=== PATIENT | male | born 1930 | race Hispanic/Latino ===

== ENCOUNTER 2017-03-17 05:41 | Inpatient (IN) | payer MEDICARE ==
[2017-03-17 05:44] VITALS: BMI 24.9
--- NOTE | 2017-03-17 05:58 | ED PDOC ---
Arrival/HPI - General Chief Complaint: Trauma Time Seen by Provider: 03/17/17 05:54 Historian: Family - History of Present Illness Narrative History of Present Illness (Text): 03/17/17 05:55 An 86 year old male with prior brain aneurysm repairs, Lewy body dementia, Alzheimer's, and Parkinson's who lives with his son, presents to the emergency department s/p a fall. The patient was trying to make his way to the bathroom without his walker and fell. The patient, accompanied by his son, is currently complaining of severe pain to the left thigh and lower extremity. The patient denies head injury or LOC, fevers, chills, headache, dizziness, chest pain, shortness of breath, dyspnea on exertion, cough, abdominal pain, nausea, vomiting, diarrhea, back pain, neck pain, urinary/bowel changes, or any other complaint. Time/Duration: Prior to Arrival Symptom Onset: Sudden Symptom Course: Unchanged Activities at Onset: Rest, Light Context: Home Past Medical History - Provider Review Nursing Documentation Reviewed: Yes - Infectious Disease Hx of Infectious Diseases: None - Tetanus Immunization Tetanus Immunization: Unknown - Cardiac Hx Cardiac Disorders: Yes Hx Hypertension: Yes - Pulmonary Hx Respiratory Disorders: No - Neurological Hx Alzheimer's Disease: Yes (Lwey Body Disease) Hx Dementia: Yes Hx Parkinson's Disease: Yes - Hematological/Oncological Hx Blood Transfusions: No Hx Blood Transfusion Reaction: No - Musculoskeletal/Rheumatological Hx Arthritis: Yes - Gastrointestinal Hx Gastroesophageal Reflux: Yes - Genitourinary/Gynecological Hx Prostate Problems: Yes (BPH, 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) - Psychiatric Hx Depression: No Hx Emotional Abuse: No Hx Physical Abuse: No Hx Substance Use: No - Surgical History Hx Cardiac Catheterization: Yes (01/23 stent placement) Hx Cholecystectomy: Yes Hx Coronary Stent: Yes - Anesthesia Hx Anesthesia Reactions: No Hx Malignant Hyperthermia: No - Suicidal Assessment Feels Threatened In Home Enviroment: No Family/Social History - Physician Review Nursing Documentation Reviewed: Yes Family/Social History: No Known Family HX Smoking Status: Never Smoked Hx Alcohol Use: No Hx Substance Use: No Hx Substance Use Treatment: No Allergies/Home Meds Allergies/Adverse Reactions: Allergies lorazepam Adverse Reaction (Verified 03/17/17 05:45) FATIGUE As per family patient gets "agitated & nasty" Home Medications: Home Meds Medication Instructions Recorded Confirmed Atorvastatin Calcium [Lipitor] 10 mg PO DAILY 05/21/12 03/17/17 Quetiapine Fumarate [Seroquel] 75 mg PO DAILY 05/21/12 03/17/17 Aspirin [Ecotrin] 325 mg PO DAILY 05/14/13 03/17/17 Amiodarone HCl 200 mg PO DAILY 03/17/17 03/17/17 Furosemide [Lasix] 10 mg PO DAILY 03/17/17 03/17/17 Lisinopril [Zestril] 2.5 mg PO DAILY 03/17/17 03/17/17 Metoprolol Tartrate [Lopressor] 25 mg PO DAILY 03/17/17 03/17/17 Review of Systems - Physician Review All systems were reviewed & negative as marked: Yes - Review of Systems Constitutional: absent: Fevers Respiratory: absent: SOB, Cough Cardiovascular: absent: Chest Pain, RAE Gastrointestinal: absent: Abdominal Pain, Diarrhea, Nausea, Vomiting Musculoskeletal: Other (Left thigh and lower extremity pain). absent: Back Pain , Neck Pain Neurological: absent: Headache, Dizziness Physical Exam Vital Signs Reviewed: Yes Vital Signs Temp Pulse Resp BP Pulse Ox 03/17/17 08:47 90 17 146/80 99 03/17/17 06:36 82 18 166/91 H 96 03/17/17 06:17 97.7 F 03/17/17 05:58 75 18 147/104 H 95 03/17/17 05:45 75 18 147/104 H 95 Blood Pressure: Hypertensive Pulse: Regular Respiratory Rate: Normal Appearance: Positive for: Non-Toxic, Unkept Pain Distress: Severe Mental Status: Positive for: other (Alert, but disoriented. Speking 2-3 word sentences expressing that he has pain in his left lower extremity.) - Systems Exam Head: Present: Atraumatic, Normocephalic, Other (Patient has prior craniotomy scars.) Pupils: Present: PERRL Extroacular Muscles: Present: EOMI Conjunctiva: Present: Normal Ears: Present: Normal, NORMAL TM, Erythema, Normal Canal, TM Bulging, Fluid, TM Perf, Other Mouth: Present: Moist Mucous Membranes Neck: Present: Normal Range of Motion Respiratory/Chest: Present: Clear to Auscultation, Good Air Exchange. No: Respiratory Distress, Accessory Muscle Use Cardiovascular: Present: Regular Rate and Rhythm, Normal S1, S2. No: Murmurs Abdomen: Present: Normal Bowel Sounds. No: Tenderness, Distention, Peritoneal Signs Back: Present: Normal Inspection Upper Extremity: Present: Normal Inspection. No: Cyanosis, Edema Lower Extremity: Present: Tenderness (Patient expressing that he has pain in his left lower extremity just above the knee. ). No: Deformity Neurological: Present: GCS=15, CN II-XII Intact, Other (Patient has intention tremor.) Skin: Present: Warm, Dry, Normal Color. No: Rashes Psychiatric: Present: Alert, Oriented x 3, Normal Insight, Normal Concentration Medical Decision Making ED Course and Treatment: 03/17/17 06:02 Impression: An 86 year old male presents to the emergency department s/p a fall complaining of severe left thigh and lower extremity pain. Plan: -- EKG -- Chest X-ray -- Labs -- Left Femur X-Ray -- Reassess and disposition Prior Visits: Notes and results from previous visits were reviewed. Patient was last seen in the emergency department on 06/30/15. The patient was seen in the emergency department for AMS. The patient was hospitalized. Progress Notes: EKG: Ordered, reviewed, and independently interpreted the EKG. Rate : 84 BPM Rhythm : NSR Interpretation : Non specific ST-T wave changes. Old anteroseptal HI, No acute ishcemic changes. Comparison : No previous EKG for comparison. - Lab Interpretations Lab Results: 03/17/17 06:00 03/17/17 06:00 Lab Results 03/17/17 06:00: Sodium 144, Potassium 4.2, Chloride 109 H, Carbon Dioxide 25, Anion Gap 15, BUN 33 H, Creatinine 1.2, Est GFR ( Amer) > 60, Est GFR ( Non-Af Amer) 57, Random Glucose 110, Calcium 9.9, Phosphorus 2.3 L, Magnesium 1.9, Total Bilirubin 0.9, AST 45, ALT 56, Alkaline Phosphatase 113, Total Protein 7.8, Albumin 4.1, Globulin 3.7, Albumin/Globulin Ratio 1.1 03/17/17 06:00: WBC 11.5 H D, RBC 5.10, Hgb 15.0, Hct 43.1, MCV 84.5, MCH 29.4, MCHC 34.8, RDW 14.7 H, Plt Count 209, MPV 10.1, Gran % 72.3 H, Lymph % (Auto) 17.8 L, [place] % (Auto) 8.6 H, Eos % (Auto) 1.1 L, Baso % (Auto) 0.2, Gran # 8.30 H, Lymph # 2.1, [place] # 1.0 H, Eos # 0.1, Baso # 0.02 I have reviewed the lab results: Yes - RAD Interpretation Radiology Orders: 03/17/17 05:58 CHEST PORTABLE [RAD] Stat 03/17/17 05:59 Femur Left [FEMUR MIN 2 VIEWS LT] [RAD] Stat - EKG Interpretation Interpreted by ED Physician: Yes Type: 12 lead EKG - Medication Orders Current Medication Orders: Amiodarone HCl (Cordarone) 200 mg PO DAILY NIK Aspirin (Ecotrin) 325 mg PO DAILY NIK Atorvastatin Calcium (Lipitor) 10 mg PO DAILY [facility] Last Admin: 03/17/17 11:44 Dose: 10 mg Enoxaparin Sodium (Lovenox) 40 mg SC DAILY [facility] PRN Reason: Protocol Last Admin: 03/17/17 11:44 Dose: 40 mg Subcutaneous Administrations Document 03/17/17 11:44 SES (Rec: 03/17/17 11:44 [facility] [id number] Charges for Administration # of Subcutaneous Administrations 1 Hydromorphone HCl (Dilaudid) 0.5 mg SC Q6H PRN PRN Reason: Pain, moderate (4-7) Last Admin: 03/17/17 15:10 Dose: 0.5 mg MAR Pain Assessment Document 03/17/17 15:10 THIED (Rec: 03/17/17 15:13 [id number]) Pain Reassessment Is this a pain reassessment? No Sleep Is patient sleeping during reassessment? No Presence of Pain Presence of Pain Yes Pain Scale Used Pain Scale Used FLACC Location Left, Right or Bilateral Right Upper or Lower Upper Pain Location Body Site Hip Description Description Constant Pain Behavior Guarding Restlessness Facial Grimacing Thrashing Aggravating Factors Changing Position Alleviating Factors/Management Medication Techniques Alleviating Factors Position Change Subcutaneous Administrations Document 03/17/17 15:10 THIED (Rec: 03/17/17 15:13 THIED [id number]) Injection Site MAR Injection Site Right Deltoid Charges for Administration # of Subcutaneous Administrations 1 Re-Assess: MAR Pain Assessment Document 03/17/17 16:10 SES (Rec: 03/17/17 18:15 [id number] Pain Reassessment Is this a pain reassessment? Yes Sleep Is patient sleeping during reassessment? No Presence of Pain Presence of Pain Yes Pain Scale Used Pain Scale Used Numeric Location Left, Right or Bilateral Left Pain Location Body Site Hip Description Intensity of Pain at present 5 Pain Behavior Guarding Irritability Alleviating Factors/Management Inactivity Techniques Alleviating Factors Inactivity Lisinopril (Zestril) 2.5 mg PO DAILY [facility] Last Admin: 03/17/17 11:43 Dose: 2.[address] [facility] Pulse and Blood Pressure Document 03/17/17 11:43 [facility] (Rec: 03/17/17 11:44 [id number] Pulse Pulse Rate (60-90) 72 Blood Pressure Blood Pressure (100/60-150/90) 148/68 Metoprolol Tartrate (Lopressor) 25 mg PO DAILY [facility] Last Admin: 03/17/17 11:44 Dose: 25 mg Pantoprazole Sodium (Protonix Ec Tab) 40 mg PO DAILY [facility] Last Admin: 03/17/17 13:00 Dose: Not Given Non-Admin Reason: Patient Asleep Potassium Phos/Sodium Phos (Neutra-Phos) 1 pkt PO TID [facility] Last Admin: 03/17/17 18:47 Dose: Not Given Non-Admin Reason: Patient Asleep Quetiapine Fumarate (Seroquel) 25 mg PO HS PRN; Protocol PRN Reason: Agitation Discontinued Medications Pneumococcal Polyvalent Vaccine (Pneumovax 23 Vaccine) 0.5 ml IM .ONCE ONE Stop: 03/17/17 13:14 Last Admin: 03/17/17 18:15 Dose: Immunization Registry Document 03/17/17 18:15 [facility] (Rec: 03/17/17 18:15 [id number] Immunization Registry Consent Date 03/17/17 - Transfer of Care Patient signed out to Dr:: carlos - Mamadou Statement The provider has reviewed the documentation as recorded by the Scribe Magali Rinaldi Provider Scribe Attestation: All medical record entries made by the Scribe were at my direction and personally dictated by me. I have reviewed the chart and agree that the record accurately reflects my personal performance of the history, physical exam, medical decision making, and the department course for this patient. I have also personally directed, reviewed, and agree with the discharge instructions and disposition. Disposition/Present on Arrival - Present on Arrival Any Indicators Present on Arrival: No History of DVT/PE: No History of Uncontrolled Diabetes: No Urinary Catheter: No History of Decub. Ulcer: No History Surgical Site Infection Following: None - Disposition Have Diagnosis and Disposition been Completed?: Yes Diagnosis: Hip fracture Disposition: HOSPITALIZED Disposition Time: 18:58 Patient Plan: Admission Patient Problems: Current Active Problems Problem Status Onset Hip fracture Acute Condition: FAIR
[2017-03-17 06:26] LABS: BASO # 0.02 K/mm3 (0.0-2.0); BASO % 0.2 % (0.0-3.0); EOS # 0.1 (0.0-0.7); EOS % 1.1 % (1.5-5.0); GRAN # 8.3 (1.4-6.5); GRAN % 72.3 % (50.0-68.0); LYMPH # 2.1 (1.2-3.4); LYMPH % 17.8 % (22.0-35.0); MEAN CELL VOLUME 84.5 fl (80.0-105.0); MEAN CORPUSCULAR HEMOGLOBIN 29.4 pg (25.0-35.0); MEAN CORPUSCULAR HGB CONC 34.8 g/dl (31.0-37.0); MEAN PLATELET VOLUME 10.1 fl (7.0-11.0); MONO % 8.6 % (1.0-6.0); RBC 5.1 10^6/uL (3.5-6.1); RED CELL DISTRIBUTION WIDTH 14.7 % (11.5-14.5); WHITE BLOOD COUNT 11.5 10^3/ul (4.5-11.0)
[2017-03-17 06:39] LABS: ALB/GLOB RATIO 1.1 (1.1-1.8); ALBUMIN 4.1 g/dL (3.0-4.8); ALT/SGPT 56 U/L (7-56); AST/SGOT 45 U/L (17-59); BLOOD UREA NITROGEN 33 mg/dL (7-21); CALCIUM 9.9 mg/dL (8.4-10.5); GFR AFRICAN-AMERICAN > 60; GFR NON-AFRICAN AMERICAN 57; MAGNESIUM 1.9 mg/dL (1.7-2.2)
--- NOTE | 2017-03-17 07:24 | ED PDOC ---
Physical Exam Vital Signs Temp Pulse Resp BP Pulse Ox 03/17/17 06:36 82 18 166/91 H 96 03/17/17 06:17 97.7 F 03/17/17 05:58 75 18 147/104 H 95 03/17/17 05:45 75 18 147/104 H 95 Medical Decision Making ED Course and Treatment: 03/17/17 07:24 Case endorsed to me by Dr. Higgins. Pending Chest X-ray, Femur left 2 views x- ray, reassessment, and disposition. 03/17/17 07:45 PROCEDURE: Chest X-ray Dictated By: Jeremy Hurst MD Dictated Date/Time: 03/17/17 IMPRESSION: NAD PROCEDURE: Left Femur Radiographs. Dictator : Jeremy Monzon MD Report Date : 03/17/2017 07:34:12 IMPRESSION: Intertrochanteric fracture of left hip. The remainder the femur is intact 03/17/17 07:[address] Adame who is aware and agrees with the Plan. Dr. Adame is aware of patient's past orthopedist who is Dr. Maloney. Patient will be admitted for left hip fracture. - Lab Interpretations Lab Results: 03/17/17 06:00 03/17/17 06:00 Lab Results 03/17/17 06:00: Sodium 144, Potassium 4.2, Chloride 109 H, Carbon Dioxide 25, Anion Gap 15, BUN 33 H, Creatinine 1.2, Est GFR ( Amer) > 60, Est GFR ( Non-Af Amer) 57, Random Glucose 110, Calcium 9.9, Phosphorus 2.3 L, Magnesium 1.9, Total Bilirubin 0.9, AST 45, ALT 56, Alkaline Phosphatase 113, Total Protein 7.8, Albumin 4.1, Globulin 3.7, Albumin/Globulin Ratio 1.1 03/17/17 06:00: WBC 11.5 H D, RBC 5.10, Hgb 15.0, Hct 43.1, MCV 84.5, MCH 29.4, MCHC 34.8, RDW 14.7 H, Plt Count 209, MPV 10.1, Gran % 72.3 H, Lymph % (Auto) 17.8 L, [place] % (Auto) 8.6 H, Eos % (Auto) 1.1 L, Baso % (Auto) 0.2, Gran # 8.30 H, Lymph # 2.1, [place] # 1.0 H, Eos # 0.1, Baso # 0.02 - RAD Interpretation Radiology Orders: 03/17/17 05:58 CHEST PORTABLE [RAD] Stat 03/17/17 05:59 Femur Left [FEMUR MIN 2 VIEWS LT] [RAD] Stat - Scribe Statement The provider has reviewed the documentation as recorded by the Glennyibjamie Hollins Provider Scribe Attestation: All medical record entries made by the Glennyibjamie were at my direction and personally dictated by me. I have reviewed the chart and agree that the record accurately reflects my personal performance of the history, physical exam, medical decision making, and the department course for this patient. I have also personally directed, reviewed, and agree with the discharge instructions and disposition. Disposition/Present on Arrival - Present on Arrival Any Indicators Present on Arrival: No History of DVT/PE: No History of Uncontrolled Diabetes: No Urinary Catheter: No History of Decub. Ulcer: No History Surgical Site Infection Following: None - Disposition Have Diagnosis and Disposition been Completed?: Yes Diagnosis: Hip fracture Disposition: HOSPITALIZED Disposition Time: 19:40 Condition: FAIR
--- NOTE | 2017-03-17 07:34 | RAD ---
HISTORY: Sepsis Patient COMPARISON: 06/30/2015 FINDINGS: LUNGS: No active pulmonary disease. PLEURA: No significant pleural effusion identified, no pneumothorax apparent. CARDIOVASCULAR: Normal. OSSEOUS STRUCTURES: Sternal wires VISUALIZED UPPER ABDOMEN: Normal. OTHER FINDINGS: None. IMPRESSION: No active disease.
--- NOTE | 2017-03-17 07:35 | RAD ---
PROCEDURE: Left Femur Radiographs. HISTORY: trauma COMPARISON: None. TECHNIQUE: AP and Lateral Radiographs of the left femur. FINDINGS: FEMUR: There is an intertrochanteric fracture of the left hip. The remainder of the femur is intact SOFT TISSUES: Normal. OTHER FINDINGS: None. IMPRESSION: Intertrochanteric fracture of left hip. The remainder the femur is intact
--- NOTE | 2017-03-17 09:17 | CT ---
PROCEDURE: CT of the Left Hip without contrast. HISTORY: f/u to femur x-ray COMPARISON: None available. TECHNIQUE: Contiguous axial images of the right hip were obtained. Coronal and sagittal reformats were generated. No contrast utilized for this exam. Total exam DLP: 362.87 mGy-cm This CT exam was performed using one or more of the following dose reduction techniques: Automated exposure control, adjustment of the mA and/or kV according to patient size, and/or use of iterative reconstruction technique. FINDINGS: BONES: There is a comminuted impacted fracture of the neck and intertrochanteric region of the proximal left femur without dislocation. Fragments of the posterior mid neck are impacted into the proximal mid neck. A fracture of the base the neck is seen through the intertrochanteric space as well which is impacted into the mid neck. A valgus fracture deformity results in terms of angulation of the major distal fracture fragment. No dislocation or subluxation identified. RIGHT HIP JOINT: Advanced degenerative changes seen of the right hip joint including cortical sclerosis, limited osteophyte formation and prominent joint space narrowing. SOFT TISSUES: Limited local soft tissue edema is identified. IMPRESSION: Comminuted impacted fracture involving the mid to distal left femoral neck and intertrochanteric space with impaction multiple sites and valgus angulation of the major distal fracture fragment. Dislocation
--- NOTE | 2017-03-17 09:52 | RAD ---
PROCEDURE: Left Hip and pelvis X-ray Radiographs. HISTORY: f/u to femur x-ray COMPARISON: None. FINDINGS: BONES: There is a comminuted displaced intertrochanteric fracture of the left hip. Compression screw and beverly in the right hip. The pelvis is intact JOINTS: Normal. SOFT TISSUES: Normal. OTHER FINDINGS: None. IMPRESSION: Comminuted displaced intertrochanteric fracture of the left hip
[2017-03-17] MEDS ORDERED: Enoxaparin 40 mg Syringe SC SCH (11:15)
--- NOTE | 2017-03-17 11:45 | CP.PCM.HP ---
<Juli Nice - Last Filed: 03/17/17 12:14> History of Present Illness - History of Present Illness History of Present Illness: PGY-2 H&P for hospitalist service 86 year old male with prior brain aneurysm repairs, CAD s/p bypass, hyperlipidemia, Lewy body dementia, Alzheimer's, and Parkinson's who lives with his son, presents to the emergency department after a fall. Patient is alert and oriented to person only, history of taken from son at bedside. Son witnessed fall, stating the patient was trying to make his way to the bathroom without assistance and fell. He states that there was no loss of consciousness or injury to the head. Per son patient has been unsteady in the mornings after taking higher dose of serquel the night before. Son reports that the patient gets up to quickly before the medication wears off. He reports that the patient occasionally sundowns and becomes more agitated at ninth and he requires 75mg of seroquel, other nights 25mg is adequate. The patient is complaining of severe pain to the left hip and lower extremity. The patient denies headache, chest pain, abd pain. Son denies any recent illness, fevers, vomiting, diarrhea , urinary or bowel changes. PMH: CAD s/p bypass, hyperlipidemia, Lewy body dementia, Alzheimer's, and Parkinson' PSH: previous hip repair, bypass about 7yo, brain aneurysm repairs about 29 yo social history: no smoking, drinking or illicit drug use, lives with son family history: mother heart disease allergy: lorazepam, he becomes agitated Present on Admission - Present on Admission Any Indicators Present on Admission: No Review of Systems - Review of Systems Systems not reviewed;Unavailable: Dementia Past Patient History - Infectious Disease Hx of Infectious Diseases: None - Tetanus Immunizations Tetanus Immunization: Unknown - Past Social History Smoking Status: Never Smoked - CARDIAC Hx Cardiac Disorders: Yes Hx Hypertension: Yes - PULMONARY Hx Respiratory Disorders: No - NEUROLOGICAL Hx Alzheimer's Disease: Yes (Lwey Body Disease) Hx Dementia: Yes Hx Parkinson's Disease: Yes - HEMATOLOGICAL/ONCOLOGICAL Hx Blood Transfusions: No Hx Blood Transfusion Reaction: No - MUSCULOSKELETAL/RHEUMATOLOGICAL Hx Arthritis: Yes - GASTROINTESTINAL Hx Gastroesophageal Reflux: Yes - GENITOURINARY/GYNECOLOGICAL Hx Prostate Problems: Yes (BPH, 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) - PSYCHIATRIC Hx Depression: No Hx Emotional Abuse: No Hx Physical Abuse: No Hx Substance Use: No - SURGICAL HISTORY Hx Cardiac Catheterization: Yes (01/23 stent placement) Hx Cholecystectomy: Yes Hx Coronary Stent: Yes - ANESTHESIA Hx Anesthesia Reactions: No Hx Malignant Hyperthermia: No Meds Allergies/Adverse Reactions: Allergies Allergy/AdvReac Type Severity Reaction Status Date / Time lorazepam AdvReac FATIGUE Verified 03/17/17 05:45 Physical Exam - Constitutional Appears: No Acute Distress - Head Exam Head Exam: ATRAUMATIC, NORMAL INSPECTION, NORMOCEPHALIC - Eye Exam Eye Exam: EOMI, Normal appearance - ENT Exam ENT Exam: Mucous Membranes Dry - Respiratory Exam Respiratory Exam: Clear to Auscultation Bilateral, NORMAL BREATHING PATTERN. absent: Chest Wall Tenderness, Rhonchi, Wheezes, Respiratory Distress - Cardiovascular Exam Cardiovascular Exam: REGULAR RHYTHM, +S1, +S2. absent: Tachycardia, Diastolic murmur, Systolic Murmur - GI/Abdominal Exam GI & Abdominal Exam: Normal Bowel Sounds, Soft. absent: Diminished Bowel Sounds , Distended, Firm, Tenderness - Extremities Exam Extremities exam: Positive for: tenderness. Negative for: pedal edema Additional comments: pain with movement of left leg, left foot rotated laterally - Neurological Exam Additional comments: alert and oriented to person, per son at baseline - Skin Skin Exam: Dry, Intact, Normal Color, Warm Results - Vital Signs Recent Vital Signs: Last Vital Signs Temp 97.7 F 03/17/17 06:17 Pulse 90 03/17/17 08:47 Resp 17 03/17/17 08:47 BP 146/80 03/17/17 08:47 Pulse Ox 99 03/17/17 08:47 - Labs Result Diagrams: 03/17/17 06:00 03/17/17 06:00 Assessment & Plan - Assessment and Plan (Free Text) Assessment: 86 year old male with prior brain aneurysm repairs, CAD s/p bypass, hyperlipidemi, Lewy body dementia, Alzheimer's, and Parkinson's who lives with his son, presents to the emergency department after a fall found to have intertrochanteric fracture of left hip Plan: 1. intertrochanteric fracture of left hip - femur xray showed intertrochanteric racture of left hip - Hip CT showed comminuted impact fracture involving mid to distal femoral neck , dislocation - hip xray showed comminuted displaced intertrochanteric fracture - orthopedic Dr. Diaz consulted, probable OR tomorrow - pain management dilaudid 0.5mg q6 - NPO after midnight - type and screen - fall precaution 2. mild leukocytosis - most like reactive to fracture and fall - will continue to monitor 3. CAD s/p bypass - will need cardiac clearance for OR , Dr. Garcia consulted - Echo ordered - continue home medications amiodarone, asa, lipitor, lisinopril, lopressor - will hold lasix for now DVT ppx- lovenox, 1 dose today, will hold tomorrow, scds for right leg GI ppx- protonix <Homer Adame - Last Filed: 03/17/17 12:31> Results - Vital Signs Recent Vital Signs: Last Vital Signs Temp 97.7 F 03/17/17 06:17 Pulse 72 03/17/17 11:43 Resp 17 03/17/17 08:47 BP 148/68 03/17/17 11:43 Pulse Ox 99 03/17/17 08:47 - Labs Result Diagrams: 03/17/17 06:00 03/17/17 06:00 Attending/Attestation - Attestation I have personally seen and examined this patient.: Yes I have fully participated in the care of the patient.: Yes I have reviewed all pertinent clinical information: Yes Notes (Text): 03/17/17 12:27 86 year old male with past medical history of CAD s/p bypass and dementia who presented s/p fall at home found to have left hip fracture. Femur xray, hip xray and CT hip were reviewed as above. Orthopedics evaluation was appreciated. Possible plan for OR tomorrow. Cardiology evaluation is requested as above. Continue with home medications, except lasix on hold for now. Mild leukocytosis is noted; likely reactive to fall injury and fracture as above. Will monitor for now. Homer Adame MD Hospitalist.
--- NOTE | 2017-03-17 12:28 | CARD ---
APPROVED REPORT EKG Measurement Heart [id number] <Conclusion> possible NSR ,base line artefact Septal infarct, age undetermined Abnormal ECG
[2017-03-17] MEDS: Pantoprazole 40 mg EC Tab PO SCH (13:00)
[2017-03-17] MEDS ORDERED: Influenza Vaccine 60 mcg/0.5 mL SYR (4YR UP) IM ONE (13:13)
[2017-03-17] MEDS ORDERED: Pneumococcal 23-Valent Vaccine IM ONE (13:13)
[2017-03-17] MEDS: HYDROmorphone 0.5 mg/0.5 ml ISec SC PRN (15:10)
--- NOTE | 2017-03-17 17:32 | CARD ---
APPROVED REPORT EXAM: Two-dimensional and M-mode echocardiogram with Doppler and color Doppler. INDICATION Pre-Op 2D DIMENSIONS Left Atrium (2D)4.0 (1.6-4.0cm) M-Mode DIMENSIONS Aortic Root2.90 (2.2-3.7cm)Aortic Cusp Exc.0.80 (1.5-2.0cm) Aortic Valve AoV Peak [id number]/Giovanni Peak GR.8mmHg Mitral Valve E/A ratio0.0 TDI E/Lateral E'0.0E/Medial E'0.0 Tricuspid Valve TR Peak [id number]/sRAP [id number] Peak Gr.14mmHg [id number] LEFT VENTRICLE The left ventricle is normal size. There is mild concentric left ventricular hypertrophy. Left ventricle systolic function is moderately to severely impaired. The Ejection Fraction is 35-40%. Sever Septal hypokinesis Transmitral Doppler flow pattern is Grade I-abnormal relaxation pattern. No left ventricle thrombus noted on this study. RIGHT VENTRICLE The right ventricle is normal size. There is normal right ventricular wall thickness. The right ventricular systolic function is normal. ATRIA The left atrium is borderline dilated. The right atrium size is normal. AORTIC VALVE The aortic valve is mildly sclerotic. No aortic regurgitation is present. There is no aortic valvular stenosis. MITRAL VALVE The mitral valve is mildly thickened. There is no mitral valve regurgitation noted. There is no mitral valve stenosis. TRICUSPID VALVE There is no pulmonary hypertension. GREAT VESSELS The aortic root is normal in size. PERICARDIAL EFFUSION There is a trace loculated anterior pericardial effusion. <Conclusion> The left ventricle is normal size. There is mild concentric left ventricular hypertrophy. Left ventricle systolic function is moderately to severely impaired. The Ejection Fraction is 35-40%. Sever Septal hypokinesis Transmitral Doppler flow pattern is Grade I-abnormal relaxation pattern.
[2017-03-17] MEDS: Potassium & Sodium Phosphate PO SCH (18:47)
[2017-03-17 18:57] LABS: INR 1.12 (0.93-1.08); PARTIAL THROMBOPLASTIN TIME 35.3 Seconds (25.1-36.5); PROTHROMBIN TIME 12.8 SECONDS (9.4-12.5)
--- NOTE | 2017-03-18 03:42 | CON ---
DATE: CARDIOLOGY CONSULTATION REASON FOR CONSULTATION: Coronary artery disease. HISTORY OF PRESENT ILLNESS: The patient is an 86-year-old male who has a history of coronary artery bypass surgery four years ago. 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 The patient has a history of parkinsonism and dementia. The patient was brought in because of a fall. According to the daughter I spoke to, the patient missed his step and fell and sustained a left hip fracture. There was no loss of consciousness or head injury. Daughter mentioned to me that few years ago, he sustained a similar fall where he had right hip fracture and required open reduction internal fixation at [facility]. The patient denied any chest pain; however, the patient himself is confused and is unreliable in answering my questions. PAST MEDICAL HISTORY: Coronary artery disease, status post coronary artery bypass surgery 4-5 years ago; hypertension; parkinsonism and Alzheimer's. MEDICATIONS: Amiodarone 200 mg once a day, Dilaudid 0.5 mg subcutaneously q. 6 hours for pain, acetaminophen 325 mg once daily, Lipitor 10 mg once a day, Lopressor 25 mg twice a day, Lovenox 40 mg subcutaneously once a day, Neutra-Phos one packet t.i.d., Protonix 40 mg p.o. once a day, Seroquel 25 mg at bedtime, Zestril 2.5 mg once a day. REVIEW OF SYSTEMS: No reported nausea or vomiting. No reported seizures. No reported hypotension. No reported ventricular tachycardia. PHYSICAL EXAMINATION GENERAL: The patient is an elderly male, who does not appear to be in acute distress. HEENT: No pallor or icterus. NECK: No JVD. CHEST: Clear. HEART: S1, S2 regular. ABDOMEN: Soft. EXTREMITIES: No edema. LABORATORY DATA: Hemoglobin and hematocrit 15 and 43.1, white count 11.5 and platelets count 209,000. SMA-7: Sodium 144, potassium 4.2, chloride 109, CO2 of 25, glucose 110, BUN 33, and creatinine 1.2. EKG revealed sinus rhythm septal infarct of indeterminate age. Echo cardiac study revealed moderate to severely depressed ejection fraction, which was estimated between 35 and 50% with severe septal hypokinesis. Femur x-ray reveals intratrochanteric left hip fracture. ASSESSMENT: 1. Status post fall and left intertrochanteric fracture. 2. Coronary artery disease, status post coronary artery bypass surgery. 3. Ischemic cardiomyopathy. 4. Hypertension. 5. Dementia. RECOMMENDATIONS: Case was discussed with Dr. Adame. The patient is a high surgical risk candidate; however surgery may be done with postoperative ICU monitoring with resumption of Lopressor, Zestril, aspirin and amiodarone postoperatively. In the mean time, I will obtain PT, PTT and INR as they have not been done yet according to the [employer] database. Yonatan Garcia MD
[2017-03-18 07:13] LABS: BASO # 0.01 K/mm3 (0.0-2.0); BASO % 0.1 % (0.0-3.0); EOS % 0.1 % (1.5-5.0); GRAN # 9.3 (1.4-6.5); GRAN % 78.2 % (50.0-68.0); HEMOGLOBIN 13.7 g/dL (14.0-18.0); LYMPH # 1.2 (1.2-3.4); LYMPH % 10.3 % (22.0-35.0); MEAN CELL VOLUME 83.7 fl (80.0-105.0); MEAN CORPUSCULAR HEMOGLOBIN 28.7 pg (25.0-35.0); MEAN CORPUSCULAR HGB CONC 34.3 g/dl (31.0-37.0); MEAN PLATELET VOLUME 9.8 fl (7.0-11.0); MONO # 1.3 (0.1-0.6); MONO % 11.3 % (1.0-6.0); RBC 4.78 10^6/uL (3.5-6.1); RED CELL DISTRIBUTION WIDTH 14.7 % (11.5-14.5); WHITE BLOOD COUNT 11.9 10^3/ul (4.5-11.0)
[2017-03-18 07:43] LABS: ALB/GLOB RATIO 1.1 (1.1-1.8); ALBUMIN 3.9 g/dL (3.0-4.8); ALT/SGPT 49 U/L (7-56); AST/SGOT 57 U/L (17-59); BLOOD UREA NITROGEN 26 mg/dL (7-21); CALCIUM 9.4 mg/dL (8.4-10.5); GFR AFRICAN-AMERICAN > 60; GFR NON-AFRICAN AMERICAN > 60
--- NOTE | 2017-03-18 08:45 | CON ---
DATE: 03/17/2017 ORTHOPEDIC CONSULTATION LOCATION: The patient is in 4, bed 2. HISTORY OF PRESENT ILLNESS: He is an 86-year-old male with a history of falling at home yesterday and sustaining a displaced intertrochanteric fracture of left hip with displacement. He is going to be prepared for surgery by Dr. Adame and Dr. Garcia to allow us to do anesthesia so we could do a left hip peritrochanteric beverly to stabilize the fracture. Hopefully, we could do the surgery on 03/18/2017 in the morning. FINAL DIAGNOSIS: Displaced intertrochanteric fracture, left hip and will require stabilization with Biomet peritrochanteric beverly. Jeremy Diaz DO
[2017-03-18] MEDS ORDERED: Bupivacaine 0.5% Inj(30mL) ONE ×2 (09:22→09:52)
[2017-03-18] MEDS ORDERED: Phenylephrine 10 mg/ml Inj ONE (09:51)
[2017-03-18] MEDS ORDERED: Morphine 1 mg/ml preservative-free Inj(Duramorph) ONE (09:52)
[2017-03-18] MEDS ORDERED: Propofol 10 mg/ml Inj (20 ML) ONE (09:54)
--- NOTE | 2017-03-18 13:05 | CP.PCM.PN ---
<Gabriel Hernandez - Last Filed: 03/18/17 15:42> Subjective - Date & Time of Evaluation Date of Evaluation: 03/18/17 Time of Evaluation: 06:00 - Subjective Subjective: patient seend and exmained bedside with family. patient has baseline dementia. he was are he was in the hospital and " going to fix his leg" . Patient denied any pain or complaints. ROS was limited due to baseline dementia. Objective - Vital Signs/Intake and Output Vital Signs (last 24 hours): Temp Pulse Resp BP Pulse Ox 99.4 F 81 20 136/67 97 03/18/17 09:30 03/18/17 09:30 03/18/17 09:30 03/18/17 09:30 03/18/17 09:30 Intake and Output: 03/18/17 03/18/17 06:59 18:59 Intake Total 60 0 Balance 60 0 - Medications Medications: Current Medications Amiodarone HCl (Cordarone) 200 mg PO DAILY [facility] Aspirin (Ecotrin) 325 mg PO DAILY [facility] Atorvastatin Calcium (Lipitor) 10 mg PO DAILY [facility] Last Admin: 03/17/17 11:44 Dose: 10 mg Enoxaparin Sodium (Lovenox) 30 mg SC DAILY [facility] PRN Reason: Protocol Hydromorphone HCl (Dilaudid) 0.5 mg SC Q6H PRN PRN Reason: Pain, moderate (4-7) Last Admin: 03/17/17 15:10 Dose: 0.5 mg Sodium Chloride (Sodium Chloride 0.9%) 1,000 mls @ 100 mls/hr IV .Q10H [facility] Dextrose/Sodium Chloride (Dextrose 5%/0.45% Ns 1000 Ml) 1,000 mls @ 70 mls/hr IV .[id number] [facility] Ketorolac Tromethamine (Toradol) 15 mg IM Q6 [facility] Stop: 03/23/17 12:25 Lisinopril (Zestril) 2.5 mg PO DAILY [facility] Last Admin: 03/17/17 11:43 Dose: 2.5 mg Metoprolol Tartrate (Lopressor) 25 mg PO DAILY [facility] Last Admin: 03/18/17 08:43 Dose: 25 mg Pantoprazole Sodium (Protonix Ec Tab) 40 mg PO DAILY [facility] Last Admin: 03/17/17 13:00 Dose: Not Given Potassium Phos/Sodium Phos (Neutra-Phos) 1 pkt PO TID N[facility] Last Admin: 03/17/17 18:47 Dose: Not Given Quetiapine Fumarate (Seroquel) 25 mg PO HS PRN; Protocol PRN Reason: Agitation - Labs Labs: 03/18/17 06:50 03/18/17 06:50 PT 12.8 SECONDS (9.4-12.5) H 03/17/17 18:37 INR 1.12 (0.93-1.08) H 03/17/17 18:37 APTT 35.3 Seconds (25.1-36.5) 03/17/17 18:37 - Constitutional Appears: Non-toxic, No Acute Distress - Head Exam Head Exam: ATRAUMATIC, NORMAL INSPECTION, NORMOCEPHALIC - Eye Exam Eye Exam: EOMI, Normal appearance - ENT Exam ENT Exam: Mucous Membranes Moist, Normal Exam - Respiratory Exam Respiratory Exam: Clear to Ausculation Bilateral, NORMAL BREATHING PATTERN - Cardiovascular Exam Cardiovascular Exam: REGULAR RHYTHM - GI/Abdominal Exam GI & Abdominal Exam: Soft, Normal Bowel Sounds - Extremities Exam Additional comments: left leg externally rotated - Neurological Exam Neurological Exam: Alert, Awake - Psychiatric Exam Psychiatric exam: Normal Affect - Skin Skin Exam: Normal Color, Warm Assessment and Plan - Assessment and Plan (Free Text) Assessment: 86 year old male with prior brain aneurysm repairs, CAD s/p bypass, hyperlipidemia, Lewy body dementia, Alzheimer's, and Parkinson's who lives with his son, presents to the emergency department after a fall found to have intertrochanteric fracture of left hip Plan: 1. intertrochanteric fracture of left hip - femur xray showed intertrochanteric fracture of left hip - Hip CT showed comminuted impact fracture involving mid to distal femoral neck , dislocation - hip xray showed comminuted displaced intertrochanteric fracture - orthopedic Dr. Diaz consulted, OR today - pain management dilaudid 0.5mg q6 - NPO after midnight - type and screen - fall precaution 2. mild leukocytosis - most like reactive to fracture and fall - will continue to monitor 3. CAD s/p bypass - cardiac clearance for OR , Dr. Garcia consulted- High surgical risk, will go to ICU post procedure with Lopressor, Zestril, apirin, amiodarone -PT 12.8 INR 1.12 - Echo ordered 35-40% EF, L Ventricular systolic impaired moderately to severe , severe septal hypokineses - continue home medications amiodarone, asa, lipitor, lisinopril, lopressor - will hold lasix for now 4. Dementia-chronic Seroquel PRN DVT ppx- lovenox-will hold today, scds for right leg GI ppx- protonix <Homer Adame - Last Filed: 03/18/17 16:04> Objective - Vital Signs/Intake and Output Vital Signs (last 24 hours): Temp Pulse Resp BP Pulse Ox 97.3 F L 59 L 16 108/56 L 97 03/18/17 12:06 03/18/17 14:21 03/18/17 14:21 03/18/17 14:21 03/18/17 14:21 Intake and Output: 03/18/17 03/18/17 06:59 18:59 Intake Total 60 0 Output Total 300 Balance 60 -300 - Medications Medications: Current Medications Amiodarone HCl (Cordarone) 200 mg PO DAILY [facility] Aspirin (Ecotrin) 325 mg PO DAILY [facility] Last Admin: 03/18/17 15:53 Dose: Not Given Atorvastatin Calcium (Lipitor) 10 mg PO DAILY [facility] Last Admin: 03/17/17 11:44 Dose: 10 mg Enoxaparin Sodium (Lovenox) 30 mg SC DAILY [facility] PRN Reason: Protocol Hydromorphone HCl (Dilaudid) 0.5 mg SC Q6H PRN PRN Reason: Pain, moderate (4-7) Last Admin: 03/17/17 15:10 Dose: 0.5 mg Sodium Chloride (Sodium Chloride 0.9%) 1,000 mls @ 100 mls/hr IV .Q10H [facility] Last Admin: 03/18/17 15:54 Dose: Not Given Dextrose/Sodium Chloride (Dextrose 5%/0.45% Ns 1000 Ml) 1,000 mls @ 70 mls/hr IV .[id number] [facility] Last Admin: 03/18/17 15:58 Dose: 70 mls/hr Cefazolin Sodium (Ancef 1gm In Ns) 1 gm in 100 mls @ 100 mls/hr IVPB Q8H [facility] PRN Reason: Protocol Stop: 03/19/17 03:14 Ketorolac Tromethamine (Toradol) 15 mg IM Q6 [facility] Stop: 03/23/17 12:25 Lisinopril (Zestril) 2.5 mg PO DAILY [facility] Last Admin: 03/17/17 11:43 Dose: 2.5 mg Metoprolol Tartrate (Lopressor) 25 mg PO DAILY [facility] Last Admin: 03/18/17 08:43 Dose: 25 mg Pantoprazole Sodium (Protonix Ec Tab) 40 mg PO DAILY [facility] Last Admin: 03/17/17 13:00 Dose: Not Given Potassium Phos/Sodium Phos (Neutra-Phos) 1 pkt PO TID [facility] Last Admin: 03/18/17 15:54 Dose: Not Given Quetiapine Fumarate (Seroquel) 25 mg PO HS PRN; Protocol PRN Reason: Agitation - Labs Labs: 03/18/17 06:50 03/18/17 06:50 PT 12.8 SECONDS (9.4-12.5) H 03/17/17 18:37 INR 1.12 (0.93-1.08) H 03/17/17 18:37 APTT 35.3 Seconds (25.1-36.5) 03/17/17 18:37 Attending/Attestation - Attestation I have personally seen and examined this patient.: Yes I have fully participated in the care of the patient.: Yes I have reviewed all pertinent clinical information, including history, physical exam and plan: Yes Notes (Text): 03/18/17 16:02 86 year old male with past medical history of CAD s/p bypass and dementia who presented s/p fall at home found to have left hip fracture. Femur xray, hip xray and CT hip were reviewed as above. Orthopedics evaluation was appreciated. Patient is in OR today for procedures. Cardiology evaluation was appreciated. Continue with home medications, except lasix on hold for now. Mild leukocytosis likely reactive to fall injury and fracture as above. Will monitor for now. Homer Adame MD Hospitalist.
--- NOTE | 2017-03-18 13:17 | RAD ---
PROCEDURE: Fluoroscopy up to 1 hour HISTORY: ORIF LT HIP COMPARISON: TECHNIQUE: Fluoroscopy was provided in the operating room. 75.7 seconds of fluoro time. Five images were submitted FINDINGS: There are 2 compression screws and intramedullary beverly. There is anatomic alignment IMPRESSION: As above
[2017-03-18] MEDS: Aspirin 325 mg EC Tablets PO SCH (15:53)
[2017-03-18] MEDS: Sodium Chloride 0.9% 1,000 ML IV SCH (15:54)
[2017-03-18] MEDS: Potassium & Sodium Phosphate PO SCH ×2 (15:54→18:57)
[2017-03-18] MEDS: Dextrose 5%/0.45% NS 1,000 ML IV SCH (15:58)
--- NOTE | 2017-03-18 16:16 | PN ---
DATE: SUBJECTIVE: The patient underwent open reduction and internal fixation with nail antegrade approach to the left hip fracture. He is currently in the recovery room. No reported ventricular arrhythmia or hypertension. PHYSICAL EXAMINATION: VITAL SIGNS: Blood pressure 126/67, heart rate 81, temperature 99.4, and respirations 20. HEENT: Normocephalic. CHEST: Clear. HEART: Sounds regular. EXTREMITIES: No edema. LABORATORY DATA: Today's hemoglobin and hematocrit 15.7 and 40, white count 11.9, and platelet count 179,000. SMA-7, sodium 144, potassium 3.9, chloride 111, CO2 22, glucose 115, BUN 26, and creatinine 1.1. ASSESSMENT: 1. Status post open reduction and internal fixation of the left hip fracture. 2. Ischemic cardiomyopathy. 3. Coronary artery disease, status post coronary artery bypass grafting 4-5 years ago. 4. Hypertension. 5. Dementia. RECOMMENDATIONS: Resume amiodarone 200 mg once a day, once a day, Lopressor 25 mg twice a day, Lovenox 30 mg once a day, and Zestril 2.5 mg daily. I will obtain EKG postoperatively. Yonatan Garcia MD
[2017-03-18] MEDS: ceFAZolin 1 gm in NS 1 GM/100 ML BAG IVPB SCH (19:50)
--- NOTE | 2017-03-18 19:50 | CARD ---
APPROVED REPORT EKG Measurement Heart [id number] <Conclusion> Sinus rhythm with 1st degree AV block Minimal voltage criteria for LVH, may be normal variant Septal infarct, age undetermined Abnormal ECG
--- NOTE | 2017-03-18 23:29 | OP ---
PROCEDURE DATE: 03/18/2017 PREOPERATIVE DIAGNOSIS: The patient is an 86-year-old male with intertrochanteric fracture of left hip displaced. POSTOPERATIVE DIAGNOSIS: The patient is an 86-year-old male with intertrochanteric fracture of left hip displaced. PROCEDURE: Open reduction and internal fixation with a Biomet Affixus nail using a nail 180 mm long and 125 degrees locked proximally with lag screw of 105 mm long and one antirotation screw of 80 mm long and locked distally with one locking screw of 40 mm long. DESCRIPTION OF PROCEDURE: The patient was taken to OR, left hip prepped and draped in the usual sterile fashion with spinal anesthesia, supine. X-ray showed we could reduce the fracture. We made a 2-inch incision just proximal to the greater trochanter going through the greater trochanter and the fracture into the distal fragment with a threaded tip guidewire which was over reamed to 7 cm and then we placed in the 180 mm long IM nail from Affixus system, then locked it into the femoral head and neck with a second incision just distal with the help of the jig to allow us to put in a 105 mm long lag screw into the femoral head and neck, and then we did lock the nail proximally, took the traction off, put in the second screw antirotation screw of 80 mm long through the jig and then locked it distally with a third incision with a 40 mm long cortical screw. Three wounds were irrigated with normal saline and closed in layers starting with 0 Vicryl with deep layer for the fascia and skin with stainless steel annia. The patient was placed in sterile dressing and sent to recovery room in good condition. Jeremy Diaz DO
[2017-03-19] MEDS: Sodium Chloride 0.9% 1,000 ML IV SCH ×2 (02:30→17:13)
[2017-03-19] MEDS: ceFAZolin 1 gm in NS 1 GM/100 ML BAG IVPB SCH (02:34)
[2017-03-19] MEDS: Dextrose 5%/0.45% NS 1,000 ML IV SCH (05:58)
[2017-03-19 08:04] LABS: ALBUMIN 2.9 g/dL (3.0-4.8); ALT/SGPT 37 U/L (7-56); AST/SGOT 49 U/L (17-59); BLOOD UREA NITROGEN 31 mg/dL (7-21); CALCIUM 8.3 mg/dL (8.4-10.5); GFR AFRICAN-AMERICAN > 60; GFR NON-AFRICAN AMERICAN 52
[2017-03-19 08:09] LABS: BASO # 0.02 K/mm3 (0.0-2.0); BASO % 0.2 % (0.0-3.0); EOS # 0.1 (0.0-0.7); EOS % 0.5 % (1.5-5.0); GRAN # 7.33 (1.4-6.5); GRAN % 74.1 % (50.0-68.0); HEMOGLOBIN 10.3 g/dL (14.0-18.0); LYMPH # 1.5 (1.2-3.4); LYMPH % 14.9 % (22.0-35.0); MEAN CELL VOLUME 84.8 fl (80.0-105.0); MEAN CORPUSCULAR HEMOGLOBIN 28.5 pg (25.0-35.0); MEAN CORPUSCULAR HGB CONC 33.7 g/dl (31.0-37.0); MEAN PLATELET VOLUME 10.2 fl (7.0-11.0); MONO % 10.3 % (1.0-6.0); RBC 3.61 10^6/uL (3.5-6.1); RED CELL DISTRIBUTION WIDTH 14.8 % (11.5-14.5); WHITE BLOOD COUNT 9.9 10^3/ul (4.5-11.0)
[2017-03-19] MEDS: Aspirin 325 mg EC Tablets PO SCH (10:32)
[2017-03-19] MEDS: Pantoprazole 40 mg EC Tab PO SCH (10:32)
[2017-03-19] MEDS: Enoxaparin 30 mg Syringe SC SCH (10:34)
[2017-03-19] MEDS: Potassium & Sodium Phosphate PO SCH ×3 (10:38→17:29)
--- NOTE | 2017-03-19 10:41 | PN ---
DATE: POSTOPERATIVE NOTE LOCATION: In room 576, bed 1. SUBJECTIVE: He underwent ORIF of his left hip yesterday and did well. He is sitting up, eating offers no complaints Hemoglobin is 10.3 and 30.6 hematocrit. We will get him up out of bed today. He will be able to ambulate with weightbearing to tolerance, left hip. Hopefully, if he continues to do well then he will be sent to subacute rehab. The wound is dry of his left hip. Jeremy Diaz DO MT[facility]ira
--- NOTE | 2017-03-19 13:53 | CP.PCM.PN ---
<Gregorio Zhang - Last Filed: 03/19/17 13:35> Subjective - Date & Time of Evaluation Date of Evaluation: 03/19/17 Time of Evaluation: 11:20 - Subjective Subjective: Subjective: Patient seen and examined at bedside. Resting comfortably in bed. No acute overnight events. Offers no new complaints at this time. States left hip pain is significantly improved from baseline. Denies fever, chills, chest pain, SOB, abdominal pain, N/V, diarrhea, constipation, and urinary symptoms. 12-point review of systems negative except as indicated in HPI Physical Examination: Constitutional Appears: Non-toxic, No Acute Distress - Head Exam Head Exam: ATRAUMATIC, NORMAL INSPECTION, NORMOCEPHALIC - Eye Exam Eye Exam: EOMI, Normal appearance - ENT Exam ENT Exam: Mucous Membranes Moist, Normal Exam - Respiratory Exam Respiratory Exam: Clear to Ausculation Bilateral, NORMAL BREATHING PATTERN - Cardiovascular Exam Cardiovascular Exam: +s1, +s2 - GI/Abdominal Exam GI & Abdominal Exam: Soft, Normal Bowel Sounds - Extremities Exam Additional comments: left leg externally rotated - Neurological Exam Neurological Exam: Alert, Awake - Psychiatric Exam Psychiatric exam: Normal Affect, Normal Mood - Skin Skin Exam: Normal Color, Warm Assessment and Plan: Patient is a 86 year old male with a past medical history of brain aneurysm repairs, CAD s/p bypass, hyperlipidemia, Lewy body dementia, Alzheimer's, and Parkinson's who was admitted for evaluation and treatment of a fall and left hip pain. Patient was found to have an intertrochanteric fracture of the left hip. Patient is POD #1 s/p ORIF of the left hip. Intertrochanteric fracture of left hip - femur xray reviewed and appreciated- showed intertrochanteric fracture of left hip - Hip CT reviewed and appreciated- showed comminuted impact fracture involving mid to distal femoral neck, dislocation - hip xray showed comminuted displaced intertrochanteric fracture - orthopedic Dr. Diaz consulted- patient is POD #1 s/p ORIF of the left hip- will be able to ambulate with weight-bearing to tolerance - pain managment via toradol- as per ortho - fall precaution Mild leukocytosis - resolved, likely reactive 2/2 to fall - will continue to monitor CAD s/p bypass - Echo reviewed and appreciated- 35-40% EF, L Ventricular systolic impaired moderately to severe , severe septal hypokineses - continue home medications amiodarone, ecotrin, lipitor, lisinopril, lopressor - will continue to hold lasix as BP is stable Alzheimer's and Parkinson's Dementia - redirect as needed - Seroquel PRN Prophylaxis - DVT ppx- lovenox - GI ppx- protonix Patient seen with, case discussed with, and plan approved by attending physician , Dr. Adame. Objective - Vital Signs/Intake and Output Vital Signs (last 24 hours): Temp Pulse Resp BP Pulse Ox 99.2 F 80 20 130/62 96 03/19/17 08:00 03/19/17 10:33 03/19/17 08:00 03/19/17 10:33 03/19/17 08:00 Intake and Output: 03/19/17 03/19/17 06:59 18:59 Intake Total 1340 Output Total 300 Balance 1040 - Medications Medications: Current Medications Amiodarone HCl (Cordarone) 200 mg PO DAILY [facility] Last Admin: 03/19/17 10:33 Dose: 200 mg Aspirin (Ecotrin) 325 mg PO DAILY [facility] Last Admin: 03/19/17 10:32 Dose: 325 mg Atorvastatin Calcium (Lipitor) 10 mg PO DAILY [facility] Last Admin: 03/17/17 11:44 Dose: 10 mg Enoxaparin Sodium (Lovenox) 30 mg SC DAILY [facility] PRN Reason: Protocol Last Admin: 03/19/17 10:34 Dose: 30 mg Hydromorphone HCl (Dilaudid) 0.5 mg SC Q6H PRN PRN Reason: Pain, moderate (4-7) Last Admin: 03/17/17 15:10 Dose: 0.5 mg Ketorolac Tromethamine (Toradol) 15 mg IM Q6 [facility] Stop: 03/23/17 12:25 Last Admin: 03/19/17 13:34 Dose: 15 mg Lisinopril (Zestril) 2.5 mg PO DAILY [facility] Last Admin: 03/19/17 10:32 Dose: 2.5 mg Metoprolol Tartrate (Lopressor) 25 mg PO DAILY [facility] Last Admin: 03/19/17 10:31 Dose: 25 mg Pantoprazole Sodium (Protonix Ec Tab) 40 mg PO DAILY [facility] Last Admin: 03/19/17 10:32 Dose: 40 mg Potassium Phos/Sodium Phos (Neutra-Phos) 1 pkt PO TID [facility] Last Admin: 03/19/17 10:38 Dose: 1 pkt Quetiapine Fumarate (Seroquel) 25 mg PO HS PRN; Protocol PRN Reason: Agitation - Labs Labs: 03/19/17 07:00 03/19/17 07:00 PT 12.8 SECONDS (9.4-12.5) H 03/17/17 18:37 INR 1.12 (0.93-1.08) H 03/17/17 18:37 APTT 35.3 Seconds (25.1-36.5) 03/17/17 18:37 <Homer Adame - Last Filed: 03/19/17 14:17> Objective - Vital Signs/Intake and Output Vital Signs (last 24 hours): Temp Pulse Resp BP Pulse Ox 99.2 F 80 20 130/62 96 03/19/17 08:00 03/19/17 10:33 03/19/17 08:00 03/19/17 10:33 03/19/17 08:00 Intake and Output: 03/19/17 03/19/17 06:59 18:59 Intake Total 1340 Output Total 300 Balance 1040 - Medications Medications: Current Medications Amiodarone HCl (Cordarone) 200 mg PO DAILY [facility] Last Admin: 03/19/17 10:33 Dose: 200 mg Aspirin (Ecotrin) 325 mg PO DAILY [facility] Last Admin: 03/19/17 10:32 Dose: 325 mg Atorvastatin Calcium (Lipitor) 10 mg PO DIN [facility] Enoxaparin Sodium (Lovenox) 30 mg SC DAILY [facility] PRN Reason: Protocol Last Admin: 03/19/17 10:34 Dose: 30 mg Hydromorphone HCl (Dilaudid) 0.5 mg SC Q6H PRN PRN Reason: Pain, moderate (4-7) Last Admin: 03/17/17 15:10 Dose: 0.5 mg Ketorolac Tromethamine (Toradol) 15 mg IM Q6 [facility] Stop: 03/23/17 12:25 Last Admin: 03/19/17 13:34 Dose: 15 mg Lisinopril (Zestril) 2.5 mg PO DAILY [facility] Last Admin: 01/06/18 10:32 Dose: 2.5 mg Metoprolol Tartrate (Lopressor) 25 mg PO DAILY [facility] Last Admin: 03/19/17 10:31 Dose: 25 mg Pantoprazole Sodium (Protonix Ec Tab) 40 mg PO DAILY [facility] Last Admin: 03/19/17 10:32 Dose: 40 mg Potassium Phos/Sodium Phos (Neutra-Phos) 1 pkt PO TID [facility] Last Admin: 03/19/17 14:06 Dose: 1 pkt Quetiapine Fumarate (Seroquel) 25 mg PO HS PRN; Protocol PRN Reason: Agitation - Labs Labs: 03/19/17 07:00 03/19/17 07:00 PT 12.8 SECONDS (9.4-12.5) H 03/17/17 18:37 INR 1.12 (0.93-1.08) H 03/17/17 18:37 APTT 35.3 Seconds (25.1-36.5) 03/17/17 18:37 Attending/Attestation - Attestation I have personally seen and examined this patient.: Yes I have fully participated in the care of the patient.: Yes I have reviewed all pertinent clinical information, including history, physical exam and plan: Yes Notes (Text): 03/19/17 14:15 86 year old male with past medical history of CAD s/p bypass and dementia who presented s/p fall at home found to have left hip fracture. Femur xray, hip xray and CT hip were reviewed as above. Orthopedics evaluation was appreciated. PT is s/p ORIF POD #1. Case was discussed with Dr. Diaz today. PT evaluation is requested. Continue with home medications, except lasix on hold for now. Cardiology is following. Mild leukocytosis has resolved and was likely reactive to fall injury and fracture as above. Homer Adame MD Hospitalist.
[2017-03-20 07:41] LABS: BASO # 0.01 K/mm3 (0.0-2.0); BASO % 0.1 % (0.0-3.0); EOS # 0.3 (0.0-0.7); EOS % 4.2 % (1.5-5.0); GRAN # 5.81 (1.4-6.5); GRAN % 73.7 % (50.0-68.0); HEMOGLOBIN 9.1 g/dL (14.0-18.0); LYMPH # 1.2 (1.2-3.4); MEAN CELL VOLUME 85.2 fl (80.0-105.0); MEAN CORPUSCULAR HEMOGLOBIN 28.6 pg (25.0-35.0); MEAN CORPUSCULAR HGB CONC 33.6 g/dl (31.0-37.0); MEAN PLATELET VOLUME 10.2 fl (7.0-11.0); MONO # 0.6 (0.1-0.6); RBC 3.18 10^6/uL (3.5-6.1); RED CELL DISTRIBUTION WIDTH 14.6 % (11.5-14.5); WHITE BLOOD COUNT 7.9 10^3/ul (4.5-11.0)
[2017-03-20 07:50] LABS: ALBUMIN 2.7 g/dL (3.0-4.8); ALT/SGPT 35 U/L (7-56); AST/SGOT 44 U/L (17-59); BLOOD UREA NITROGEN 28 mg/dL (7-21); CALCIUM 8.1 mg/dL (8.4-10.5); GFR AFRICAN-AMERICAN > 60; GFR NON-AFRICAN AMERICAN 57; HDL CHOLESTEROL 32 mg/dL (29-60)
[2017-03-20 07:59] LABS: ALB/GLOB RATIO 0.9 (1.1-1.8)
[2017-03-20 08:01] LABS: LDL CHOLESTEROL 46 mg/dL (0-129)
[2017-03-20] MEDS: Potassium & Sodium Phosphate PO SCH ×3 (09:40→16:35)
[2017-03-20] MEDS: Pantoprazole 40 mg EC Tab PO SCH (09:40)
[2017-03-20] MEDS: Enoxaparin 30 mg Syringe SC SCH (09:40)
[2017-03-20] MEDS ORDERED: Potassium Chloride 20 mEq/15 ml LIQ UD PO ONE (09:58)
--- NOTE | 2017-03-20 11:16 | CP.PCM.PN ---
<Gregorio Zhang - Last Filed: 03/20/17 11:09> Subjective - Date & Time of Evaluation Date of Evaluation: 03/20/17 Time of Evaluation: 08:55 - Subjective Subjective: Subjective: Patient seen and examined at bedside. Resting comfortably in bed. No acute overnight events. Offers no new complaints at this time. States pain is well controlled and has significantly improved from baseline. Tolerating diet. Denies fever, chills, chest pain, SOB, abdominal pain, N/V, diarrhea, constipation, and urinary symptoms. 12-point review of systems negative except as indicated in HPI Physical Examination: Constitutional Appears: Non-toxic, No Acute Distress - Head Exam Head Exam: ATRAUMATIC, NORMAL INSPECTION, NORMOCEPHALIC - Eye Exam Eye Exam: EOMI, Normal appearance - ENT Exam ENT Exam: Mucous Membranes Moist, Normal Exam - Respiratory Exam Respiratory Exam: Clear to Ausculation Bilateral, NORMAL BREATHING PATTERN - Cardiovascular Exam Cardiovascular Exam: +s1, +s2 - GI/Abdominal Exam GI & Abdominal Exam: Soft, Normal Bowel Sounds - Extremities Exam Additional comments: left leg externally rotated - Neurological Exam Neurological Exam: Alert, Awake - Psychiatric Exam Psychiatric exam: Normal Affect, Normal Mood - Skin Skin Exam: Normal Color, Warm Assessment and Plan: Patient is a 86 year old male with a past medical history of brain aneurysm repairs, CAD s/p bypass, hyperlipidemia, Lewy body dementia, Alzheimer's, and Parkinson's who was admitted for evaluation and treatment of a fall and left hip pain. Patient was found to have an intertrochanteric fracture of the left hip. Patient is POD #2 s/p ORIF of the left hip. Intertrochanteric fracture of left hip - patient is POD #2 s/p ORIF of the left hip, pain is well controlled via toradol - femur xray reviewed and appreciated- showed intertrochanteric fracture of left hip - Hip CT reviewed and appreciated- showed comminuted impact fracture involving mid to distal femoral neck, dislocation - hip xray showed comminuted displaced intertrochanteric fracture - orthopedic Dr. Diaz consulted- will be able to ambulate with weight- bearing to tolerance - fall precaution Mild leukocytosis - resolved, likely reactive 2/2 to fall - will continue to monitor CAD s/p bypass - Echo reviewed and appreciated- 35-40% EF, L Ventricular systolic impaired moderately to severe , severe septal hypokineses - continue home medications amiodarone, ecotrin, lipitor, lisinopril, lopressor - will continue to hold lasix as BP is stable Alzheimer's and Parkinson's Dementia - redirect as needed - Seroquel PRN Prophylaxis - DVT ppx- lovenox - GI ppx- protonix Patient seen with, case discussed with, and plan approved by attending physician , Dr. Smiley Objective - Vital Signs/Intake and Output Vital Signs (last 24 hours): Temp Pulse Resp BP Pulse Ox 98.8 F 68 20 127/68 99 03/20/17 07:30 03/20/17 09:40 03/20/17 07:30 03/20/17 09:40 03/20/17 07:30 Intake and Output: 03/20/17 03/20/17 06:59 18:59 Intake Total 540 Balance 540 - Medications Medications: Current Medications Amiodarone HCl (Cordarone) 200 mg PO DAILY [facility] Last Admin: 03/20/17 09:37 Dose: 200 mg Aspirin (Ecotrin) 325 mg PO DAILY [facility] Last Admin: 03/19/17 10:32 Dose: 325 mg Atorvastatin Calcium (Lipitor) 10 mg PO DIN [facility] Last Admin: 03/19/17 17:29 Dose: 10 mg Enoxaparin Sodium (Lovenox) 30 mg SC DAILY [facility] PRN Reason: Protocol Last Admin: 03/20/17 09:40 Dose: 30 mg Hydromorphone HCl (Dilaudid) 0.5 mg SC Q6H PRN PRN Reason: Pain, moderate (4-7) Last Admin: 03/17/17 15:10 Dose: 0.5 mg Sodium Chloride (Sodium Chloride 0.9%) 1,000 mls @ 50 mls/hr IV .Q20H [facility] Last Admin: 03/19/17 17:13 Dose: 50 mls/hr Ketorolac Tromethamine (Toradol) 15 mg IM Q6 [facility] Stop: 03/23/17 12:25 Last Admin: 03/20/17 06:46 Dose: 15 mg Lisinopril (Zestril) 2.5 mg PO DAILY [facility] Last Admin: 03/20/17 09:39 Dose: 2.5 mg Metoprolol Tartrate (Lopressor) 25 mg PO DAILY [facility] Last Admin: 03/20/17 09:40 Dose: 25 mg Pantoprazole Sodium (Protonix Ec Tab) 40 mg PO DAILY [facility] Last Admin: 03/20/17 09:40 Dose: 40 mg Potassium Phos/Sodium Phos (Neutra-Phos) 1 pkt PO TID [facility] Last Admin: 03/20/17 09:40 Dose: 1 pkt Quetiapine Fumarate (Seroquel) 25 mg PO HS PRN; Protocol PRN Reason: Agitation Last Admin: 03/19/17 21:30 Dose: 25 mg - Labs Labs: 03/20/17 07:00 03/20/17 07:00 PT 12.8 SECONDS (9.4-12.5) H 03/17/17 18:37 INR 1.12 (0.93-1.08) H 03/17/17 18:37 APTT 35.3 Seconds (25.1-36.5) 03/17/17 18:37 <Katelynn Smiley - Last Filed: 03/20/17 14:34> Objective - Vital Signs/Intake and Output Vital Signs (last 24 hours): Temp Pulse Resp BP Pulse Ox 98.8 F 68 20 127/68 99 03/20/17 07:30 03/20/17 09:40 03/20/17 07:30 03/20/17 09:40 03/20/17 07:30 Intake and Output: 03/20/17 03/20/17 06:59 18:59 Intake Total 540 Balance 540 - Medications Medications: Current Medications Amiodarone HCl (Cordarone) 200 mg PO DAILY [facility] Last Admin: 03/20/17 09:37 Dose: 200 mg Aspirin (Ecotrin) 325 mg PO DAILY [facility] Last Admin: 03/19/17 10:32 Dose: 325 mg Atorvastatin Calcium (Lipitor) 10 mg PO DIN [facility] Last Admin: 03/19/17 17:29 Dose: 10 mg Enoxaparin Sodium (Lovenox) 30 mg SC DAILY [facility] PRN Reason: Protocol Last Admin: 03/20/17 09:40 Dose: 30 mg Hydromorphone HCl (Dilaudid) 0.5 mg SC Q6H PRN PRN Reason: Pain, moderate (4-7) Last Admin: 03/17/17 15:10 Dose: 0.5 mg Sodium Chloride (Sodium Chloride 0.9%) 1,000 mls @ 50 mls/hr IV .Q20H [facility] Stop: 03/20/17 23:59 Last Admin: 03/20/17 13:41 Dose: 50 mls/hr Ketorolac Tromethamine (Toradol) 15 mg IM Q6 [facility] Stop: 03/23/17 12:25 Last Admin: 03/20/17 13:34 Dose: 15 mg Lisinopril (Zestril) 2.5 mg PO DAILY [facility] Last Admin: 03/20/17 09:39 Dose: 2.5 mg Metoprolol Tartrate (Lopressor) 25 mg PO DAILY [facility] Last Admin: 03/20/17 09:40 Dose: 25 mg Pantoprazole Sodium (Protonix Ec Tab) 40 mg PO DAILY [facility] Last Admin: 03/20/17 09:40 Dose: 40 mg Potassium Chloride (K-Dur 20 Meq Er Tab) 40 meq PO ONCE ONE Stop: 03/20/17 16:01 Potassium Phos/Sodium Phos (Neutra-Phos) 1 pkt PO TID [facility] Last Admin: 03/20/17 13:40 Dose: 1 pkt Quetiapine Fumarate (Seroquel) 25 mg PO HS PRN; Protocol PRN Reason: Agitation Last Admin: 03/19/17 21:30 Dose: 25 mg - Labs Labs: 03/20/17 07:00 03/20/17 07:00 PT 12.8 SECONDS (9.4-12.5) H 03/17/17 18:37 INR 1.12 (0.93-1.08) H 03/17/17 18:37 APTT 35.3 Seconds (25.1-36.5) 03/17/17 18:37 Attending/Attestation - Attestation I have personally seen and examined this patient.: Yes I have fully participated in the care of the patient.: Yes I have reviewed all pertinent clinical information, including history, physical exam and plan: Yes Notes (Text): 03/20/17 14:32 Patient was seen and examined with medical surgery nurse. Agreed with resident assessment and plan. 86 year old male with past medical history of CAD s/p bypass and dementia who presented s/p fall at home found to have left hip fracture. Patient is s/p ORIF POD #3, .Hemoglobin is mildly low, we will continue monitoring. Continue Physical therapy and DVT Prophylaxis.
--- NOTE | 2017-03-20 11:59 | CARD ---
APPROVED REPORT EKG Measurement Heart [id number] <Conclusion> Sinus rhythm with occasional premature ventricular complexes Minimal voltage criteria for LVH, may be normal variant Septal infarct, age undetermined Abnormal ECG
[2017-03-20] MEDS: Sodium Chloride 0.9% 1,000 ML IV SCH (13:41)
[2017-03-20] MEDS ORDERED: Potassium Chloride 20 mEq ER Tab PO ONE (16:00)
[2017-03-20] MEDS: Aspirin 325 mg EC Tablets PO SCH (16:26)
--- NOTE | 2017-03-20 17:52 | PN ---
DATE: REASON FOR CONSULTATION AND FOLLOWUP: Postop followup, status post hip surgery, covering Dr. Yonatan Garcia. OBJECTIVE: Not in apparent distress. PHYSICAL EXAMINATION: VITAL SIGNS: Temperature afebrile, heart rate 60, blood pressure 127/68. HEENT: PERRLA. Extraocular muscles intact. NECK: Supple. No carotid bruits or thyromegaly. CHEST: Clear to auscultation. HEART: S1 and S2, regular. ABDOMEN: Soft. EXTREMITIES: Clubbing and cyanosis negative. LABORATORY DATA: Blood workup as follows: WBC 11.8, hemoglobin 9.8, hematocrit 27.1, platelet count 137. Chemistry shows sodium 142, potassium 3.3, chloride 112, CO2 24, anion gap 9, BUN 20, creatinine 1.2. IMPRESSION: Hypokalemia, protein calorie malnutrition which was not present on admission, status post hip fracture, coronary artery disease, status post coronary artery bypass 4 to 5 years ago, hypertension, hyperlipidemia, diabetes, ischemic cardiomyopathy. RECOMMENDATION: Resume back amiodarone. DVT prophylaxis. Continue atorvastatin. Continue metoprolol. Supplement phosphorus as needed. Supplement potassium. We will discontinue IV fluid tonight and increase nutritional support. We will follow with you and transfer care tomorrow to Dr. Yonatan Garcia. Repeat the blood workup tomorrow. We will also get level tomorrow. We will give another K at 3 p.m. We will also increase nutritional support with supplement of Ensure pudding. Katelynn Sue MD
[2017-03-20] MEDS: HYDROmorphone 0.5 mg/0.5 ml ISec SC PRN (23:06)
[2017-03-21 07:55] LABS: BASO # 0.02 K/mm3 (0.0-2.0); BASO % 0.3 % (0.0-3.0); EOS # 0.4 (0.0-0.7); GRAN # 4.55 (1.4-6.5); GRAN % 70.3 % (50.0-68.0); LYMPH % 16.1 % (22.0-35.0); MEAN CELL VOLUME 84.7 fl (80.0-105.0); MEAN CORPUSCULAR HEMOGLOBIN 28.8 pg (25.0-35.0); MEAN PLATELET VOLUME 9.8 fl (7.0-11.0); MONO # 0.5 (0.1-0.6); MONO % 7.3 % (1.0-6.0); RBC 3.13 10^6/uL (3.5-6.1); RED CELL DISTRIBUTION WIDTH 14.6 % (11.5-14.5); WHITE BLOOD COUNT 6.5 10^3/ul (4.5-11.0)
[2017-03-21 08:10] LABS: ALBUMIN 2.7 g/dL (3.0-4.8); ALT/SGPT 34 U/L (7-56); AST/SGOT 46 U/L (17-59); BLOOD UREA NITROGEN 30 mg/dL (7-21); CALCIUM 8.1 mg/dL (8.4-10.5); GFR AFRICAN-AMERICAN > 60; GFR NON-AFRICAN AMERICAN > 60
--- NOTE | 2017-03-21 08:12 | OP ---
PROCEDURE DATE: 03/18/2017 PREOPERATIVE DIAGNOSIS: Displaced intertrochanteric fracture of the left hip. POSTOPERATIVE DIAGNOSIS: Displaced intertrochanteric fracture of the left hip. PROCEDURE: Open reduction and internal fixation with a [employer] Affixus nail. DESCRIPTION OF PROCEDURE: The patient was placed on the fracture table and left hip was placed in traction and with a spinal anesthesia. X-ray shows good position of the fracture was reduced to help of opening it by 2-inch incision just proximal to the greater trochanter 4 cm and reducing with the help of the threaded-tip K-wire going to the medial part greater trochanter into the distal fragment and over reaming was done with the canal then theperi troch was insert.ed then a2nd incision made to insert the lag screw into the fem hedand then theim beverly was stabilizedwith thedistal lockingscreh bymakig a3dr incisionatthedstal end of the im beverly. all incionswereirigatedith salineand wounds 3 closed with annia. and sterile dressing appliedand [facility]. Jeremy Diaz DO MTDErendira
[2017-03-21 08:23] LABS: ALB/GLOB RATIO 0.9 (1.1-1.8)
--- NOTE | 2017-03-21 08:26 | PN ---
DATE: 03/19/2017 REASON FOR DICTATION: Covering Dr. Yonatan Garcia. REASON FOR CONSULTATION AND FOLLOWUP: Preop and postop followup for hip fracture status post open repair and internal fixation, history of coronary artery disease, CABG. HISTORY OF PRESENT ILLNESS: The patient denies any chest pain, shortness of breath or any palpitation. Family is at the bedside. OBJECTIVE: GENERAL: Not in apparent distress, lying flat on the bed. VITAL SIGNS: Temperature afebrile, heart rate 80 and blood pressure 130/62. HEENT: PERRLA. Extraocular muscles intact. NECK: Supple. No carotid bruits or thyromegaly. CHEST: Clear to auscultation. HEART: S1 and S2 regular. ABDOMEN: Soft. EXTREMITIES: Clubbing and cyanosis negative. LABORATORY DATA: Blood workup as follows: WBC 9.9, hemoglobin 10.3, hematocrit 30.6 and platelet count 138. Chemistry shows sodium 142, potassium 3.0, chloride 101, carbon dioxide is 23, anion gap of 11, BUN 31 and creatinine 1.3. IMPRESSION: Status post open reduction internal fixation, left hip fracture, ischemic cardiomyopathy, coronary artery disease status post coronary artery bypass graft, dementia, hypertension. RECOMMENDATION: Supplement potassium, resume back amiodarone, resume atorvastatin. Continue DVT prophylaxis. Continue metoprolol. We will follow with you. Repeat EKG in the morning. status is stable. The patient is getting 100 mL of normal saline. We will cut down to 50 and if p.o. is adequate then we will discontinue IV fluid tomorrow. We will repeat the lab in the morning. We will get TSH, lipid profile, and hemoglobin A1c as well in the morning. Thank you Dr. Adame, for providing us the opportunity in taking care of the patient, Darrell Rasmussen. Katelynn Sue MD
[2017-03-21] MEDS: Enoxaparin 30 mg Syringe SC SCH (09:59)
[2017-03-21] MEDS: HYDROmorphone 0.5 mg/0.5 ml ISec SC PRN (09:59)
[2017-03-21] MEDS: Pantoprazole 40 mg EC Tab PO SCH (09:59)
[2017-03-21] MEDS: Aspirin 325 mg EC Tablets PO SCH (10:00)
[2017-03-21] MEDS: Potassium & Sodium Phosphate PO SCH ×3 (11:31→18:32)
--- NOTE | 2017-03-21 12:43 | CP.PCM.PN ---
Objective - Vital Signs/Intake and Output Vital Signs (last 24 hours): Temp Pulse Resp BP Pulse Ox 99 F 57 L 20 111/51 L 94 L 03/20/17 16:00 03/21/17 11:32 03/20/17 16:00 03/21/17 11:32 03/20/17 16:00 Intake and Output: 03/21/17 03/21/17 06:59 18:59 Intake Total 960 Output Total 400 Balance 560 - Medications Medications: Current Medications Alprazolam (Xanax) 0.5 mg PO TID PRN; Protocol PRN Reason: Anxiety Amiodarone HCl (Cordarone) 200 mg PO DAILY [facility] Last Admin: 03/21/17 11:32 Dose: 200 mg Aspirin (Ecotrin) 325 mg PO DAILY [facility] Last Admin: 03/21/17 10:00 Dose: 325 mg Atorvastatin Calcium (Lipitor) 10 mg PO DIN [facility] Last Admin: 03/20/17 16:34 Dose: 10 mg Enoxaparin Sodium (Lovenox) 30 mg SC DAILY [facility] PRN Reason: Protocol Last Admin: 03/21/17 09:59 Dose: 30 mg Hydromorphone HCl (Dilaudid) 0.5 mg SC Q6H PRN PRN Reason: Pain, moderate (4-7) Last Admin: 03/21/17 09:59 Dose: 0.5 mg Ketorolac Tromethamine (Toradol) 15 mg IM Q6 [facility] Stop: 03/23/17 12:25 Last Admin: 03/21/17 06:13 Dose: 15 mg Lisinopril (Zestril) 2.5 mg PO DAILY [facility] Last Admin: 03/21/17 11:32 Dose: 2.5 mg Metoprolol Tartrate (Lopressor) 25 mg PO DAILY [facility] Last Admin: 03/21/17 11:32 Dose: Not Given Pantoprazole Sodium (Protonix Ec Tab) 40 mg PO DAILY [facility] Last Admin: 03/21/17 09:59 Dose: 40 mg Potassium Phos/Sodium Phos (Neutra-Phos) 1 pkt PO TID [facility] Last Admin: 03/21/17 11:31 Dose: 1 pkt Quetiapine Fumarate (Seroquel) 25 mg PO HS PRN; Protocol PRN Reason: Agitation Last Admin: 01/07/18 21:21 Dose: 25 mg - Labs Labs: 03/21/17 07:00 03/21/17 07:00 PT 12.8 SECONDS (9.4-12.5) H 03/17/17 18:37 INR 1.12 (0.93-1.08) H 03/17/17 18:37 APTT 35.3 Seconds (25.1-36.5) 03/17/17 18:37
--- NOTE | 2017-03-21 14:32 | PQF MALNUT ---
03/29/17 Dr. Varun Smiley, Patient has Moderate Malnutrition Clarification of your documentation is requested to better reflect the severity of illness and intensity of treatment of your patient. Indicators present Documentation of protein-calorie malnutrition requiring increased nutritional support w/ supplement of Ensure pudding 4 x day requires clarification as to type, ex. mild, moderate or severe. Please note in your PN [] Cachexia (due to severe malnutrition) [x] Albumin < 2.8 [] Decreased Pre-albumin [x] Dietary Consult [] Provider documentation reflects BMI of: []_ [x] Low serum proteins [] Documented weight loss [] Inability to consume adequate caloric intake [] Anorexic [] Other: [] Location in the medical record that reflects the above clinical findings: [] PN Card 03/20 Treatment Provided: []Ensure pudding 4 x day PHYSICIAN'S RESPONSE Based on your medical judgment of the clinical indicators outlined above, are you treating this patient for a known or suspected: Type of Malnutrition Severity [] Mild [] Moderate [] Severe [] Protein calorie [] Mild [] Moderate [] severe [] Other, please indicate: []_ [] If Unable to Determine, please check the box, sign and date. Present On Admission (POA) Indicator: [] Present at the time of admission [] Not present at the time of admission [] Clinically Undetermined In responding to this query, please exercise your independent professional judgment. The fact that a question is asked does not imply that any particular answer is desired or expected. Thank you for your clarification on this documentation. If you have any questions please call:[ ][phone] * Thank you, [ ] Sierra Galaviz RN CDS baker head Malnutrition Malnutrition results from an imbalance between the body's intake of nutrients and the body's use of nutrients to fuel energy expenditure. Malnutrition may be described as mild, moderate or severe. There are variations in clinical indicators, lab values and risk factors with each type and degree. When reviewing the nutritional status of the client, the entire clinical picture should be assessed and taken into consideration rather than a focus on a single laboratory value. Mild Malnutrition: patient's weight is noted at 85-95% of normal body weight; BMI 18-18.9; serum albumin 3.0-3.4; total lymphocyte count [id number]. Moderate Malnutrition: patient's weight is noted at 75-85% of normal body weight ; BMI 16-17.9; serum albumin 2.4-3.0; total lymphocyte count 800-1500. Severe Malnutrition: patient's weight is noted at <75% of normal body weight, BMI <16, serum albumin <2.4, total lymphocyte count <800, abnormally low VLDL/ LDL levels, creatinine <0.6, BUN <8, cholesterol <160. Other clinical indicators include: loss of subq fat, muscle wasting of the extremities, skin lesions, decubitus ulcers, hair loss, lethargy, constipation, decreased pulse/ respiratory rates, relative hypotension, hepatomegaly d/t fat infiltration, poor wound healing.~~~~~~ Risk: poor intake d/t food avoidance or NPO status for >7 days, protracted nutritional losses from malabsorption states, hypermetabolic state such as sepsis, prolonged fever, extensive trauma or cano, alcohol/drug abuse, advanced age, CKD, trouble chewing or swallowing, some medications, depression/ social isolation, special diets such as low protein Treatment: dietary consultation, protein-calorie dietary supplementation, daily weights, PEG tube, psychiatric consultation, appetite stimulants (Megace). [employer] Principles of Internal Medicine, 17th edition, chapters 9, 72 and 234. The [employer] Nutritional Support Core Curriculum, 2007 MTDD
--- NOTE | 2017-03-21 14:53 | PN ---
DATE: SUBJECTIVE: The patient is not in any apparent distress. He denies any chest pain. PHYSICAL EXAMINATION: VITAL SIGNS: Blood pressure 111/51, heart rate 67, temperature 99, and respirations 20. HEENT: Pale conjunctivae. CHEST: Clear. HEART: S1 and S2 regular. EXTREMITIES: No edema. LABORATORY DATA: Hemoglobin and hematocrit are 9 and 26.5, white count and platelet count today are within normal limits. Today SMA-7 is within normal limits except for chloride of 114 and BUN of 30. Calcium is slightly below normal at 8.1. ASSESSMENT: 1. Status post open reduction internal fixation of the left hip fracture. 2. Ischemic cardiomyopathy. 3. Coronary artery disease, status post coronary artery bypass surgery 4 to 5 years ago. 4. Hypertension. 5. Dementia. 6. Mild anemia. RECOMMENDATIONS: Continue amiodarone 200 mg once a day, aspirin 325 mg once a day, Lipitor 10 mg once a day, Lopressor 25 mg daily, and Zestril 2.5 mg daily. Postoperative EKG revealed sinus rhythm with premature ventricular complexes, minimal voltage criteria for LVH and old septal infarct. Yonatan Garcia MD
--- NOTE | 2017-03-21 17:09 | CP.PCM.PN ---
<Gabriel Hernandez - Last Filed: 03/21/17 17:10> Subjective - Date & Time of Evaluation Date of Evaluation: 03/21/17 Time of Evaluation: 06:00 - Subjective Subjective: Patient seen and evaluated at bedside. Patient was lying comfortably, denied any pain. Patient stated he was walking slowly, and eating well. He denied any chest pain, shortness of breath, nausea, vomiting, fever, chills, or any other complaints at this time. Objective - Vital Signs/Intake and Output Vital Signs (last 24 hours): Temp Pulse Resp BP Pulse Ox 99 F 57 L 20 111/51 L 94 L 03/20/17 16:00 03/21/17 11:32 03/20/17 16:00 03/21/17 11:32 03/20/17 16:00 Intake and Output: 03/21/17 03/21/17 06:59 18:59 Intake Total 960 Output Total 400 Balance 560 - Medications Medications: Current Medications Alprazolam (Xanax) 0.5 mg PO TID PRN; Protocol PRN Reason: Anxiety Amiodarone HCl (Cordarone) 200 mg PO DAILY [facility] Last Admin: 03/21/17 11:32 Dose: 200 mg Aspirin (Ecotrin) 325 mg PO DAILY [facility] Last Admin: 03/21/17 10:00 Dose: 325 mg Atorvastatin Calcium (Lipitor) 10 mg PO DIN [facility] Last Admin: 03/20/17 16:34 Dose: 10 mg Enoxaparin Sodium (Lovenox) 30 mg SC DAILY [facility] PRN Reason: Protocol Last Admin: 03/21/17 09:59 Dose: 30 mg Hydromorphone HCl (Dilaudid) 0.5 mg SC Q6H PRN PRN Reason: Pain, moderate (4-7) Last Admin: 03/21/17 09:59 Dose: 0.5 mg Ketorolac Tromethamine (Toradol) 15 mg IM Q6 [facility] Stop: 03/23/17 12:25 Last Admin: 03/21/17 06:13 Dose: 15 mg Lisinopril (Zestril) 2.5 mg PO DAILY [facility] Last Admin: 03/21/17 11:32 Dose: 2.5 mg Metoprolol Tartrate (Lopressor) 25 mg PO DAILY [facility] Last Admin: 03/21/17 11:32 Dose: Not Given Pantoprazole Sodium (Protonix Ec Tab) 40 mg PO DAILY [facility] Last Admin: 03/21/17 09:59 Dose: 40 mg Potassium Phos/Sodium Phos (Neutra-Phos) 1 pkt PO TID [facility] Last Admin: 03/21/17 14:39 Dose: 1 pkt Quetiapine Fumarate (Seroquel) 25 mg PO HS PRN; Protocol PRN Reason: Agitation Last Admin: 03/20/17 21:21 Dose: 25 mg - Labs Labs: 03/21/17 07:00 03/21/17 07:00 PT 12.8 SECONDS (9.4-12.5) H 03/17/17 18:37 INR 1.12 (0.93-1.08) H 03/17/17 18:37 APTT 35.3 Seconds (25.1-36.5) 03/17/17 18:37 - Constitutional Appears: Non-toxic, No Acute Distress - Head Exam Head Exam: ATRAUMATIC, NORMAL INSPECTION, NORMOCEPHALIC - Eye Exam Eye Exam: EOMI, Normal appearance Pupil Exam: NORMAL ACCOMODATION - ENT Exam ENT Exam: Mucous Membranes Moist - Neck Exam Neck Exam: Normal Inspection - Respiratory Exam Respiratory Exam: Clear to Ausculation Bilateral, NORMAL BREATHING PATTERN - Cardiovascular Exam Cardiovascular Exam: REGULAR RHYTHM, +S1, +S2 - GI/Abdominal Exam GI & Abdominal Exam: Soft - Extremities Exam Extremities Exam: Tenderness - Neurological Exam Neurological Exam: Alert, Awake Assessment and Plan - Assessment and Plan (Free Text) Assessment: Patient is a 86 year old male with a past medical history of brain aneurysm repairs, CAD s/p bypass, hyperlipidemia, Lewy body dementia, Alzheimer's, and Parkinson's who was admitted for evaluation and treatment of a fall and left hip pain. Patient was found to have an intertrochanteric fracture of the left hip. s/p ORIF of the left hip day 3. Plan: Intertrochanteric fracture of left hip - s/p ORIF of the left hip Day 3, pain is well controlled - femur xray reviewed and appreciated- showed intertrochanteric fracture of left hip - Hip CT reviewed and appreciated- showed comminuted impact fracture involving mid to distal femoral neck, dislocation - hip xray showed comminuted displaced intertrochanteric fracture - orthopedic Dr. Mastromonaco consulted- will be able to ambulate with weight- bearing to tolerance - fall precautions -Patient is receiving and tolerating Physical therapy well. Mild leukocytosis - resolved, likely reactive 2/2 to fall - will continue to monitor CAD s/p bypass - Echo reviewed and appreciated- 35-40% EF, L Ventricular systolic impaired moderately to severe , severe septal hypokineses - continue home medications amiodarone, ecotrin, lipitor, lisinopril, lopressor - will continue to hold lasix as BP is stable Alzheimer's and Parkinson's Dementia - redirect as needed - Seroquel PRN Prophylaxis - DVT ppx- lovenox - GI ppx- protonix <Katelynn Smiley - Last Filed: 03/22/17 17:09> Objective - Vital Signs/Intake and Output Vital Signs (last 24 hours): Temp Pulse Resp BP Pulse Ox 98.1 F 88 20 136/76 95 03/22/17 08:00 03/22/17 09:39 03/22/17 08:00 03/22/17 09:39 03/22/17 08:00 Intake and Output: 03/22/17 03/22/17 06:59 18:59 Intake Total 360 Output Total 400 Balance -40 - Labs Labs: 03/22/17 07:00 03/22/17 07:00 PT 12.8 SECONDS (9.4-12.5) H 03/17/17 18:37 INR 1.12 (0.93-1.08) H 03/17/17 18:37 APTT 35.3 Seconds (25.1-36.5) 03/17/17 18:37 Attending/Attestation - Attestation I have personally seen and examined this patient.: Yes I have fully participated in the care of the patient.: Yes I have reviewed all pertinent clinical information, including history, physical exam and plan: Yes Notes (Text): 03/22/17 17:07 Patient was seen and examined with medical receptionist medical assistant. 86 year old male with past medical history of CAD s/p bypass and dementia who presented s/p fall at home found to have left hip fracture. Patient is s/p ORIF , He remain stable after surgery.His mental status is at his bas e line.He is not agitated , off restraint. He will be discharged to [facility], [place] and will follow up with PCP in Nursing and Orthopedic.
[2017-03-22 06:50] VITALS: RESP 20
[2017-03-22 07:41] LABS: HEMOGLOBIN 8.9 g/dL (14.0-18.0); MEAN CELL VOLUME 84.1 fl (80.0-105.0); MEAN CORPUSCULAR HEMOGLOBIN 28.3 pg (25.0-35.0); MEAN CORPUSCULAR HGB CONC 33.6 g/dl (31.0-37.0); MEAN PLATELET VOLUME 9.7 fl (7.0-11.0); RBC 3.15 10^6/uL (3.5-6.1); RED CELL DISTRIBUTION WIDTH 14.6 % (11.5-14.5); WHITE BLOOD COUNT 7.1 10^3/ul (4.5-11.0)
[2017-03-22 07:51] LABS: ALBUMIN 2.8 g/dL (3.0-4.8); ALT/SGPT 39 U/L (7-56); AST/SGOT 47 U/L (17-59); BLOOD UREA NITROGEN 28 mg/dL (7-21); CALCIUM 8.1 mg/dL (8.4-10.5); GFR AFRICAN-AMERICAN > 60; GFR NON-AFRICAN AMERICAN > 60
[2017-03-22 07:52] LABS: ALB/GLOB RATIO 0.9 (1.1-1.8)
[2017-03-22] MEDS: Enoxaparin 30 mg Syringe SC SCH (09:38)
[2017-03-22] MEDS: Pantoprazole 40 mg EC Tab PO SCH (09:39)
[2017-03-22] MEDS: Aspirin 325 mg EC Tablets PO SCH (09:39)
[2017-03-22 09:42] VITALS: BP 136/76; PULSE 88
[2017-03-22 09:43] VITALS: TEMP 98.1; O2SAT 95
--- NOTE | 2017-03-22 11:19 | CP.PCM.DIS ---
<Gabriel Hernandez - Last Filed: 03/22/17 16:51> Provider - Provider Date of Admission: 03/17/17 07:51 Attending physician: Homer Adame MD Primary care physician: Moe Kan MD Consults: Cardiology-[facility]astrom[facility] Time Spent in preparation of Discharge (in minutes): 70 Hospital Course - Lab Results Lab Results: Most Recent Lab Values WBC 7.1 10^3/ul (4.5-11.0) 03/22/17 07:00 RBC 3.15 10^6/uL (3.5-6.1) L 03/22/17 07:00 Hgb 8.9 g/dL (14.0-18.0) L 03/22/17 07:00 Hct 26.5 % (42.0-52.0) L 03/22/17 07:00 MCV 84.1 fl (80.0-105.0) 03/22/17 07:00 MCH 28.3 pg (25.0-35.0) 03/22/17 07:00 MCHC 33.6 g/dl (31.0-37.0) 03/22/17 07:00 RDW 14.6 % (11.5-14.5) H 03/22/17 07:00 Plt Count 194 10^3/uL (120.0-450.0) 03/22/17 07:00 MPV 9.7 fl (7.0-11.0) 03/22/17 07:00 Gran % 70.3 % (50.0-68.0) H 03/21/17 07:00 Lymph % (Auto) 16.1 % (22.0-35.0) L 03/21/17 07:00 [place] % (Auto) 7.3 % (1.0-6.0) H 03/21/17 07:00 Eos % (Auto) 6.0 % (1.5-5.0) H 03/21/17 07:00 Baso % (Auto) 0.3 % (0.0-3.0) 03/21/17 07:00 Gran # 4.55 (1.4-6.5) 03/21/17 07:00 Lymph # 1.0 (1.2-3.4) L 03/21/17 07:00 [place] # 0.5 (0.1-0.6) 03/21/17 07:00 Eos # 0.4 (0.0-0.7) 03/21/17 07:00 Baso # 0.02 K/mm3 (0.0-2.0) 03/21/17 07:00 PT 12.8 SECONDS (9.4-12.5) H 03/17/17 18:37 INR 1.12 (0.93-1.08) H 03/17/17 18:37 APTT 35.3 Seconds (25.1-36.5) 03/17/17 18:37 Sodium 144 mmol/L (132-148) 03/22/17 07:00 Potassium 3.7 mmol/L (3.6-5.0) 03/22/17 07:00 Chloride 112 mmol/L (98-107) H 03/22/17 07:00 Carbon Dioxide 23 mmol/L (21-33) 03/22/17 07:00 Anion Gap 12 (10-20) 03/22/17 07:00 BUN 28 mg/dL (7-21) H 03/22/17 07:00 Creatinine 1.1 mg/dl (0.8-1.5) 03/22/17 07:00 Est GFR ( Amer) > 60 03/22/17 07:00 Est GFR (Non-Af Amer) > 60 03/22/17 07:00 Random Glucose 91 mg/dL (70-110) 03/22/17 07:00 Hemoglobin A1c 5.1 % (4.2-6.5) 03/20/17 07:00 Calcium 8.1 mg/dL (8.4-10.5) L 03/22/17 07:00 Phosphorus 2.9 mg/dL (2.5-4.5) 03/21/17 07:00 Magnesium 2.0 mg/dL (1.7-2.2) 03/21/17 07:00 Total Bilirubin 1.2 mg/dL (0.2-1.3) 03/22/17 07:00 AST 47 U/L (17-59) 03/22/17 07:00 ALT 39 U/L (7-56) 03/22/17 07:00 Alkaline Phosphatase 76 U/L (38-126) 03/22/17 07:00 Total Protein 5.7 g/dL (5.8-8.3) L 03/22/17 07:00 Albumin 2.8 g/dL (3.0-4.8) L 03/22/17 07:00 Globulin 3.0 gm/dL 03/22/17 07:00 Albumin/Globulin Ratio 0.9 (1.1-1.8) L 03/22/17 07:00 Triglycerides 98 mg/dL (35-160) 03/20/17 07:00 Cholesterol 106 mg/dL (130-200) L 03/20/17 07:00 LDL Cholesterol Direct 46 mg/dL (0-129) 03/20/17 07:00 HDL Cholesterol 32 mg/dL (29-60) 03/20/17 07:00 TSH 3rd Generation 3.56 mIU/mL (0.46-4.68) 03/20/17 07:00 Blood Type O POSITIVE 03/17/17 11:00 Antibody Screen Negative 03/17/17 11:00 BBK History Checked Patient has bt 03/17/17 11:00 - Hospital Course Hospital Course: Patient is a 86 year old male with a past medical history of brain aneurysm repairs, CAD s/p bypass, hyperlipidemia, Lewy body dementia, Alzheimer's, and Parkinson's who was admitted for evaluation and treatment of a fall and left hip pain. Patient was found to have an intertrochanteric fracture of the left hip. Patient was cleared by cardiology, Echo reviewed and appreciated- 35-40% EF, L Ventricular systolic impaired moderately to severe , severe septal hypokineses. Patient underwent ORIF procedure of the left hip. Initial xray of the femur was done showing intertrochanteric fracture of left hip. Hip CT showed comminuted impact fracture involving mid to distal femoral neck, dislocation. Post surgery patient received PT. On initial presentation patient had leukocytosis form the fall and was monitored then resolved. His medications amiodarone, ecotrin, lipitor, lisinopril, lopressor were continued and he was placed on proper DVT and GI prophylaxis. patients condition improved and was discharged to correction. Discharge Exam - Head Exam Head Exam: ATRAUMATIC, NORMAL INSPECTION, NORMOCEPHALIC - Eye Exam Eye Exam: EOMI, Normal appearance, PERRL - ENT Exam ENT Exam: Normal Oropharynx - Respiratory Exam Respiratory Exam: Clear to PA & Lateral, NORMAL BREATHING PATTERN - Cardiovascular Exam Cardiovascular Exam: REGULAR RHYTHM, +S1, +S2 - GI/Abdominal Exam GI & Abdominal Exam: Normal Bowel Sounds - Extremities Exam Additional comments: bandage on left hip s/p orif - Neurological Exam Additional comments: Baseline dementia Discharge Plan - Discharge Medications Prescriptions: oxyCODONE/Acetaminophen [Percocet 5/325 mg Tab] 1 tab PO Q6H PRN #8 tab PRN Reason: Pain, Moderate (4-7) - Follow Up Plan Condition: FAIR Disposition: TRANSF TO SNF Instructions: Pneumococcal Vaccine for Adults (GEN), Heart Healthy Diet (GEN), Dementia (GEN), Influenza Vaccine (DC), Narcotic Pain Management (GEN), Acute Wound Care (GEN), Fall Prevention (GEN), ORIF of Hip Fracture (DC) Additional Instructions: Instructed to notify doctor if you have pain not relieve with medication Instructed to call the doctor if you have an elevated temperature, notice any redness or swelling at wound site. Referrals: Moe Kan MD [Primary Care Provider] - <Katelynn Smiley - Last Filed: 03/22/17 17:10> Provider - Provider Date of Admission: 03/17/17 07:51 Attending physician: Homer Adame MD Primary care physician: Moe Kan MD Hospital Course - Lab Results Lab Results: Most Recent Lab Values WBC 7.1 10^3/ul (4.5-11.0) 03/22/17 07:00 RBC 3.15 10^6/uL (3.5-6.1) L 03/22/17 07:00 Hgb 8.9 g/dL (14.0-18.0) L 03/22/17 07:00 Hct 26.5 % (42.0-52.0) L 03/22/17 07:00 MCV 84.1 fl (80.0-105.0) 03/22/17 07:00 MCH 28.3 pg (25.0-35.0) 03/22/17 07:00 MCHC 33.6 g/dl (31.0-37.0) 03/22/17 07:00 RDW 14.6 % (11.5-14.5) H 03/22/17 07:00 Plt Count 194 10^3/uL (120.0-450.0) 03/22/17 07:00 MPV 9.7 fl (7.0-11.0) 03/22/17 07:00 Gran % 70.3 % (50.0-68.0) H 03/21/17 07:00 Lymph % (Auto) 16.1 % (22.0-35.0) L 03/21/17 07:00 [place] % (Auto) 7.3 % (1.0-6.0) H 03/21/17 07:00 Eos % (Auto) 6.0 % (1.5-5.0) H 03/21/17 07:00 Baso % (Auto) 0.3 % (0.0-3.0) 03/21/17 07:00 Gran # 4.55 (1.4-6.5) 03/21/17 07:00 Lymph # 1.0 (1.2-3.4) L 03/21/17 07:00 [place] # 0.5 (0.1-0.6) 03/21/17 07:00 Eos # 0.4 (0.0-0.7) 03/21/17 07:00 Baso # 0.02 K/mm3 (0.0-2.0) 03/21/17 07:00 PT 12.8 SECONDS (9.4-12.5) H 03/17/17 18:37 INR 1.12 (0.93-1.08) H 03/17/17 18:37 APTT 35.3 Seconds (25.1-36.5) 03/17/17 18:37 Sodium 144 mmol/L (132-148) 03/22/17 07:00 Potassium 3.7 mmol/L (3.6-5.0) 03/22/17 07:00 Chloride 112 mmol/L (98-107) H 03/22/17 07:00 Carbon Dioxide 23 mmol/L (21-33) 03/22/17 07:00 Anion Gap 12 (10-20) 03/22/17 07:00 BUN 28 mg/dL (7-21) H 03/22/17 07:00 Creatinine 1.1 mg/dl (0.8-1.5) 03/22/17 07:00 Est GFR ( Amer) > 60 03/22/17 07:00 Est GFR (Non-Af Amer) > 60 03/22/17 07:00 Random Glucose 91 mg/dL (70-110) 03/22/17 07:00 Hemoglobin A1c 5.1 % (4.2-6.5) 03/20/17 07:00 Calcium 8.1 mg/dL (8.4-10.5) L 03/22/17 07:00 Phosphorus 2.9 mg/dL (2.5-4.5) 03/21/17 07:00 Magnesium 2.0 mg/dL (1.7-2.2) 03/21/17 07:00 Total Bilirubin 1.2 mg/dL (0.2-1.3) 03/22/17 07:00 AST 47 U/L (17-59) 03/22/17 07:00 ALT 39 U/L (7-56) 03/22/17 07:00 Alkaline Phosphatase 76 U/L (38-126) 03/22/17 07:00 Total Protein 5.7 g/dL (5.8-8.3) L 03/22/17 07:00 Albumin 2.8 g/dL (3.0-4.8) L 03/22/17 07:00 Globulin 3.0 gm/dL 03/22/17 07:00 Albumin/Globulin Ratio 0.9 (1.1-1.8) L 03/22/17 07:00 Triglycerides 98 mg/dL (35-160) 03/20/17 07:00 Cholesterol 106 mg/dL (130-200) L 03/20/17 07:00 LDL Cholesterol Direct 46 mg/dL (0-129) 03/20/17 07:00 HDL Cholesterol 32 mg/dL (29-60) 03/20/17 07:00 TSH 3rd Generation 3.56 mIU/mL (0.46-4.68) 03/20/17 07:00 Blood Type O POSITIVE 03/17/17 11:00 Antibody Screen Negative 03/17/17 11:00 BBK History Checked Patient has bt 03/17/17 11:00 Attending/Attestation - Attestation I have personally seen and examined this patient.: Yes I have fully participated in the care of the patient.: Yes I have reviewed all pertinent clinical information, including history, physical exam and plan: Yes Notes (Text): 03/22/17 17:10 Patient was seen and examined with medical or surgical instrument maker. 86 year old male with past medical history of CAD s/p bypass and dementia who presented s/p fall at home found to have left hip fracture. Patient is s/p ORIF , He remain stable after surgery.His mental status is at his bas e line.He is not agitated , off restraint. He will be discharged to [facility] and will follow up with PCP in Nursing and Orthopedic.
--- NOTE | 2017-03-22 15:26 | PN ---
DATE: SUBJECTIVE: The patient does not appear to be in any distress. Attempts to ambulate him this morning were unsuccessful. PHYSICAL EXAMINATION: VITAL SIGNS: Blood pressure 136/76, heart rate 88, temperature 98.1, respirations 20. HEENT: Pale conjunctivae. CHEST: Clear. HEART: S1 and S2 regular. ABDOMEN: Soft. EXTREMITIES: No edema. ASSESSMENT: 1. Coronary artery disease with history of coronary artery bypass surgery. 2. Ischemic cardiomyopathy. 3. Status post open reduction and internal fixation of left hip fracture. 4. Hypertension. 5. Dementia. CONDITION: Continue current amiodarone 200 mg once a day, aspirin 625 mg once a day, Lipitor 10 mg once a day, Lopressor 25 mg once a day, Lovenox 30 mg once a day, Zestril 2.5 mg once a day, and start Pepcid at 20 mg orally twice a day. The patient is in a process of being transferred to subacute rehab. Yonatan Garcia MD
== END 2017-03-22 16:26 | DRG 481 ==
LOC: ED 05:41 → ERH 07:51 → 5RSO 10:00
PROVIDERS: ADMIT Internal Medicine; ATTEND Internal Medicine
PROC: 0QS704Z Reposition Left Upper Femur with Internal Fixation Device, Open Approach (ICD-10-PCS; principal; 2017-03-18 10:30)
DX: S72.142A Displaced intertrochanteric fracture of left femur, initial encounter for closed fracture (principal); E44.0 Moderate protein-calorie malnutrition; D64.9 Anemia, unspecified; E11.9 Type 2 diabetes mellitus without complications; D72.829 Elevated white blood cell count, unspecified; E78.5 Hyperlipidemia, unspecified; G30.9 Alzheimer's disease, unspecified; I25.5 Ischemic cardiomyopathy; F02.80 Dementia in other diseases classified elsewhere, unspecified severity, without behavioral disturbance, psychotic disturbance, mood disturbance, and anxiety; I25.10 Atherosclerotic heart disease of native coronary artery without angina pectoris; G31.83 Neurocognitive disorder with Lewy bodies; I10 Essential (primary) hypertension; K21.9 Gastro-esophageal reflux disease without esophagitis; N40.0 Benign prostatic hyperplasia without lower urinary tract symptoms; Z85.46 Personal history of malignant neoplasm of prostate; W19.XXXA Unspecified fall, initial encounter; Z79.82 Long term (current) use of aspirin; Z79.899 Other long term (current) drug therapy; Z82.49 Family history of ischemic heart disease and other diseases of the circulatory system; Z90.49 Acquired absence of other specified parts of digestive tract; Z91.81 History of falling; Z95.1 Presence of aortocoronary bypass graft; Z95.5 Presence of coronary angioplasty implant and graft

== ENCOUNTER 2017-05-09 12:19 | Inpatient (IN) | payer MEDICARE ==
[2017-05-09 12:34] VITALS: BMI 24.7
[2017-05-09 13:18] LABS: BASO # 0.01 K/mm3 (0.0-2.0); BASO % 0.1 % (0.0-3.0); EOS # 0.3 (0.0-0.7); GRAN # 6.55 (1.4-6.5); GRAN % 69.8 % (50.0-68.0); HEMOGLOBIN 12.8 g/dL (14.0-18.0); LYMPH # 1.7 (1.2-3.4); LYMPH % 18.1 % (22.0-35.0); MEAN CORPUSCULAR HEMOGLOBIN 28.2 pg (25.0-35.0); MEAN PLATELET VOLUME 9.2 fl (7.0-11.0); MONO # 0.8 (0.1-0.6); RBC 4.54 10^6/uL (3.5-6.1); RED CELL DISTRIBUTION WIDTH 14.2 % (11.5-14.5); WHITE BLOOD COUNT 9.4 10^3/ul (4.5-11.0)
--- NOTE | 2017-05-09 13:20 | ED PDOC ---
Arrival/HPI - General Chief Complaint: Trauma Time Seen by Provider: 05/09/17 12:32 Historian: Patient - History of Present Illness Narrative History of Present Illness (Text): 05/09/17 12:39 An 86 year old male, whose past medical history includes dementia, was brought in by EMS to the emergency department for AMS from home. Patient is unaware of what happened or why he is in the emergency department and states he lives with his parents. Denies any pain. As per patient's son, patient was brought in by EMS for increased confusion. Patient was discharged from rehab a few days ago. Patient with recent left hip surgery, denies any fever. Limited history because of confusion. Patient denies any lower extremity pain, knee pain or any other complaints at this time. Symptom Onset: Sudden Symptom Course: Unchanged Activities at Onset: Rest Context: Home Past Medical History - Provider Review Nursing Documentation Reviewed: Yes - Infectious Disease Hx of Infectious Diseases: None - Tetanus Immunization Tetanus Immunization: Unknown - Cardiac Hx Cardiac Disorders: Yes Hx Hypertension: Yes - Pulmonary Hx Respiratory Disorders: No - Neurological Hx Alzheimer's Disease: Yes (Lwey Body Disease) Hx Dementia: Yes Hx Parkinson's Disease: Yes - Hematological/Oncological Hx Blood Transfusions: No Hx Blood Transfusion Reaction: No - Integumentary Other/Comment: age spots b/l arms, abrasions and dry skin both knees, thick hard toenails both feet, dry skin bottom b/l feet, skin discoloration ble, slight redness both feet, butrtock redness to sacrum/ butt crack - Musculoskeletal/Rheumatological Hx Unsteady Gait: Yes - Gastrointestinal Hx Gastroesophageal Reflux: Yes - Genitourinary/Gynecological Hx Prostate Problems: Yes (BPH, 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) - Psychiatric Hx Depression: No Hx Emotional Abuse: No Hx Physical Abuse: No Hx Substance Use: No - Surgical History Hx Cardiac Catheterization: Yes (01/23 stent placement) Hx Cholecystectomy: Yes Hx Coronary Stent: Yes - Anesthesia Hx Anesthesia Reactions: No Hx Malignant Hyperthermia: No - Suicidal Assessment Feels Threatened In Home Enviroment: No Family/Social History - Physician Review Nursing Documentation Reviewed: Yes Family/Social History: No Known Family HX Smoking Status: Never Smoked Hx Alcohol Use: No Hx Substance Use: No Hx Substance Use Treatment: No Allergies/Home Meds Allergies/Adverse Reactions: Allergies lorazepam Adverse Reaction (Verified 05/09/17 13:16) FATIGUE As per family patient gets "agitated & nasty" Home Medications: Home Meds Medication Instructions Recorded Confirmed Atorvastatin Calcium [Lipitor] 10 mg PO DAILY 05/21/12 05/09/17 Quetiapine Fumarate [Seroquel] 75 mg PO DAILY 05/21/12 05/09/17 Aspirin [Ecotrin] 325 mg PO DAILY 05/14/13 05/09/17 Amiodarone HCl 200 mg PO DAILY 03/17/17 05/09/17 Furosemide [Lasix] 10 mg PO DAILY 03/17/17 05/09/17 Lisinopril [Zestril] 2.5 mg PO DAILY 03/17/17 05/09/17 Metoprolol Tartrate [Lopressor] 25 mg PO DAILY 03/17/17 05/09/17 Review of Systems - Review of Systems Systems not reviewed;Unavailable: Dementia Constitutional: absent: Fevers Gastrointestinal: absent: Abdominal Pain Musculoskeletal: absent: Back Pain, Other (knee pain; lower extremity pain) Physical Exam Vital Signs Reviewed: Yes Vital Signs Temp Pulse Resp BP Pulse Ox 05/09/17 18:41 81 18 131/63 100 05/09/17 12:38 99.1 F 81 19 155/84 H 100 Temperature: Afebrile Blood Pressure: Hypertensive Pulse: Regular Respiratory Rate: Normal Appearance: Positive for: Well-Appearing, Comfortable Pain Distress: None Mental Status: Positive for: Confused Finger Stick Blood Glucose: 73 - Systems Exam Head: Present: Atraumatic, Normocephalic Pupils: Present: PERRL Extroacular Muscles: Present: EOMI Conjunctiva: Present: Normal Mouth: Present: Moist Mucous Membranes Neck: Present: Normal Range of Motion Respiratory/Chest: Present: Clear to Auscultation, Good Air Exchange. No: Respiratory Distress, Accessory Muscle Use Cardiovascular: Present: Regular Rate and Rhythm, Normal S1, S2. No: Murmurs Abdomen: Present: Normal Bowel Sounds. No: Tenderness, Distention, Peritoneal Signs Back: Present: Normal Inspection Upper Extremity: Present: Normal Inspection. No: Cyanosis, Edema Lower Extremity: Present: Normal Inspection. No: Edema Neurological: Present: GCS=15, CN II-XII Intact, Speech Normal Skin: Present: Warm, Dry, Normal Color. No: Rashes Psychiatric: Present: Alert Medical Decision Making ED Course and Treatment: 05/09/17 13:17 Impression: An 86 year old male with AMS. Plan: -- CT head -- EKG -- chest xray -- labs -- Urinalysis -- Radiology left ankle, left hip -- Reassess and disposition Prior Visits: Notes and results from previous visits were reviewed. Patient was last seen in the emergency department on 03/17/17 for evaluation s/p fall. Progress Notes: 05/09/17 14:57 CT HEAD WITHOUT CONTRAST Creator : Jeremy Monzon MD IMPRESSION: No acute findings 05/09/17 15:40 EKG: Ordered, reviewed, and independently interpreted the EKG. Rate : 84 BPM Rhythm : NSR Interpretation : Nonspecific ST/T wave changes 05/09/17 15:24 Left Hip and pelvis X-ray Radiographs Creator : Jeremy Monzon MD FINDINGS: BONES: Recent internal fixation of the left hip. There is a compression screw and beverly. There is a fracture through the greater trochanter. The pelvis is intact JOINTS: Normal. SOFT TISSUES: Normal. IMPRESSION: As above 05/09/17 15:22 CHEST RADIOGRAPH, 1 VIEW Creator : Jeremy Monzon MD IMPRESSION: No active disease. 05/09/17 15:26 Left Ankle Radiographs Creator : Jeremy Monozn MD FINDINGS: BONES: Old fracture deformity of the distal fibula JOINTS: Severe degenerative changes are seen in the ankle joint with bony sclerosis and loss of the joint space. Degenerative changes are also seen in the subtalar joints. SOFT TISSUES: Normal. IMPRESSION: Severe degenerative changes. 05/09/17 22:[address] mayers, needs pt eval for gait dysnfucntion unsafe dc ho of falls. updated dr lucas states old greater troch fx. - Lab Interpretations Lab Results: 05/09/17 13:10 05/09/17 13:10 Lab Results 05/09/17 13:10: Sodium 142, Potassium 4.1, Chloride 106, Carbon Dioxide 22, Anion Gap 19, BUN 25 H, Creatinine 1.2, Est GFR ( Amer) > 60, Est GFR ( Non-Af Amer) 57, Random Glucose 87, Calcium 10.4, Magnesium 1.9, Total Bilirubin 0.9, AST 36, ALT 26, Alkaline Phosphatase 136 H D, Lactate Dehydrogenase 509, Total Creatine Kinase 422 H, CK-MB (CK-2) 4.3 H, CK-MB (CK-2 ) % Cancelled, Troponin I 0.03 D, Total Protein 8.0, Albumin 4.0, Globulin 3.9 , Albumin/Globulin Ratio 1.0 L 05/09/17 13:10: PT 13.0 H, INR 1.13 H, APTT 28.8 05/09/17 13:10: WBC 9.4 D, RBC 4.54, Hgb 12.8 L D, Hct 37.7 L, MCV 83.0, MCH 28.2, MCHC 34.0, RDW 14.2, Plt Count 269, MPV 9.2, Gran % 69.8 H, Lymph % (Auto ) 18.1 L, [place] % (Auto) 9.0 H, Eos % (Auto) 3.0, Baso % (Auto) 0.1, Gran # 6.55 H, Lymph # (Auto) 1.7, [place] # (Auto) 0.8 H, Eos # (Auto) 0.3, Baso # (Auto) 0.01 I have reviewed the lab results: Yes - RAD Interpretation Radiology Orders: 05/09/17 12:54 HEAD W/O CONTRAST [CT] Stat CHEST ONE VIEW [RAD] Stat ANKLE LEFT 3 VIEWS ROUTINE [RAD] Stat HIP MIN 2V W/ PELVIS LT [RAD] Stat - EKG Interpretation Interpreted by ED Physician: Yes Type: 12 lead EKG - Medication Orders Current Medication Orders: Amiodarone HCl (Cordarone) 200 mg PO DAILY [facility] Aspirin (Ecotrin) 325 mg PO DAILY [facility] Atorvastatin Calcium (Lipitor) 10 mg PO DAILY [facility] Clotrimazole (Lotrimin 1%) 1 gm TOP BID [facility] Last Admin: 05/09/17 19:59 Dose: Furosemide (Lasix) 10 mg PO DAILY [facility] Heparin Sodium (Porcine) (Heparin) 5,000 units SC Q12 NIK PRN Reason: Protocol Last Admin: 05/09/17 21:14 Dose: Not Given Non-Admin Reason: Patient Refused Ceftaroline Fosamil 400 mg/ (Sodium Chloride) 100 mls @ 100 mls/hr IVPB Q12 NIK PRN Reason: Protocol Stop: 05/09/17 22:59 Last Admin: 05/09/17 21:13 Dose: 100 mls/hr eMAR Start Stop Document 05/09/17 21:13 MB (Rec: 05/09/17 21:13 [facility]-[id number]) Intravenous Solution Start Date 05/09/17 Start Time 21:13 Lisinopril (Zestril) 2.5 mg PO DAILY NIK Metoprolol Tartrate (Lopressor) 25 mg PO DAILY NIK Pantoprazole Sodium (Protonix Ec Tab) 40 mg PO 0600 NIK Quetiapine Fumarate (Seroquel) 75 mg PO DAILY NIK PRN Reason: Protocol - Scribe Statement The provider has reviewed the documentation as recorded by the Glennyibjamie Baptiste Provider Scribe Attestation: All medical record entries made by the Scribe were at my direction and personally dictated by me. I have reviewed the chart and agree that the record accurately reflects my personal performance of the history, physical exam, medical decision making, and the department course for this patient. I have also personally directed, reviewed, and agree with the discharge instructions and disposition. Disposition/Present on Arrival - Present on Arrival Any Indicators Present on Arrival: No History of DVT/PE: No History of Uncontrolled Diabetes: No Urinary Catheter: No History of Decub. Ulcer: No History Surgical Site Infection Following: None - Disposition Have Diagnosis and Disposition been Completed?: Yes Diagnosis: Fall, Weakness Disposition: HOSPITALIZED Disposition Time: 05:00 Condition: STABLE
[2017-05-09 13:28] LABS: INR 1.13 (0.93-1.08); PARTIAL THROMBOPLASTIN TIME 28.8 Seconds (25.1-36.5)
[2017-05-09 13:43] LABS: ALT/SGPT 26 U/L (7-56); AST/SGOT 36 U/L (17-59); BLOOD UREA NITROGEN 25 mg/dL (7-21); CALCIUM 10.4 mg/dL (8.4-10.5); GFR AFRICAN-AMERICAN > 60; GFR NON-AFRICAN AMERICAN 57; MAGNESIUM 1.9 mg/dL (1.7-2.2)
[2017-05-09 13:54] LABS: TROPONIN I 0.03 ng/mL
[2017-05-09 13:59] LABS: CK-MB 4.3 ng/mL (0.0-3.6)
--- NOTE | 2017-05-09 14:54 | CT ---
PROCEDURE: CT HEAD WITHOUT CONTRAST. HISTORY: fall COMPARISON: 06/30/2015 TECHNIQUE: Axial computed tomography images were obtained through the head/brain without intravenous contrast. Radiation dose: Total exam DLP = 818 mGy-cm. This CT exam was performed using one or more of the following dose reduction techniques: Automated exposure control, adjustment of the mA and/or kV according to patient size, and/or use of iterative reconstruction technique. FINDINGS: HEMORRHAGE: No intracranial hemorrhage. BRAIN: No mass effect or edema. No atrophy or chronic microvascular ischemic changes. VENTRICLES: Unremarkable. No hydrocephalus. CALVARIUM: There has been a previous craniotomy. Aneurysm clips are seen to the left of midline and in the right middle cranial fossa. PARANASAL SINUSES: Unremarkable as visualized. No significant inflammatory changes. MASTOID AIR CELLS: Unremarkable as visualized. No inflammatory changes. OTHER FINDINGS: None. IMPRESSION: No acute findings
--- NOTE | 2017-05-09 15:20 | RAD ---
PROCEDURE: CHEST RADIOGRAPH, 1 VIEW HISTORY: weakness COMPARISON: 03/17/2017 FINDINGS: LUNGS: Clear. PLEURA: No pneumothorax or pleural fluid seen. CARDIOVASCULAR: Normal. OSSEOUS STRUCTURES: Sternal wires VISUALIZED UPPER ABDOMEN: Normal. OTHER FINDINGS: None. IMPRESSION: No active disease.
--- NOTE | 2017-05-09 15:22 | RAD ---
PROCEDURE: Left Hip and pelvis X-ray Radiographs. HISTORY: fall COMPARISON: None. FINDINGS: BONES: Recent internal fixation of the left hip. There is a compression screw and beverly. There is a fracture through the greater trochanter. The pelvis is intact JOINTS: Normal. SOFT TISSUES: Normal. OTHER FINDINGS: None. IMPRESSION: As above
--- NOTE | 2017-05-09 15:24 | RAD ---
PROCEDURE: Left Ankle Radiographs. HISTORY: fall COMPARISON: None FINDINGS: BONES: Old fracture deformity of the distal fibula JOINTS: Severe degenerative changes are seen in the ankle joint with bony sclerosis and loss of the joint space. Degenerative changes are also seen in the subtalar joints. SOFT TISSUES: Normal. OTHER FINDINGS: None. IMPRESSION: Severe degenerative changes.
--- NOTE | 2017-05-09 16:36 | CARD ---
APPROVED REPORT EKG Measurement Heart [id number] <Conclusion> Sinus rhythm with premature atrial complexes Septal infarct, age undetermined ST & T wave abnormality, consider lateral ischemia Prolonged QT Abnormal ECG
--- NOTE | 2017-05-09 18:36 | CP.PCM.HP ---
<Behzad Robledo - Last Filed: 05/09/17 18:59> History of Present Illness - History of Present Illness History of Present Illness: Mr. Rasmussen is an 86 year old male with a past medical history significant for left hip fracture s/p ORIF (03/2017), prior brain aneurysm repairs, CAD s/p bypass, HLD, Lewy body dementia, Alzheimer's, and Parkinson's who presents with increased weakness and confusion since being discharged from [facility]. Patient lives with his son, who was at bedside and helped with HPI information. Patients son reports that patient had an unwitnessed fall last night from his walker. He reports that he came home to find patient on the floor but reports that patient denied pain or any distress at that time. He also endorses that since patient was released from rehab, where he was being rehabilitated s/p ORIF of left hip fracture, he has not been able to function physically at the level he was prior to fracturing his hip. He reports that patient has had significant difficulty getting up the stairs, specifically. He also endorses that patient has been staying awake at night more so than in the past. He also endorses that patient was previously voiding on his own but that now he is requiring the use of diapers. Given this, patients son states that he has had increasing difficulties in taking care of the patient. Patient has no complaints at this time including fever, chills, headache, chest pain, palpitations, SOB, cough, abdominal pain, or any N/V/D/C. PMH: CAD s/p bypass, HLD, Lewy body dementia, Alzheimer's, and Parkinson's PSH: Left hip fracture s/p ORIF (03/2017), previous right hip repair, bypass about 7yo, brain aneurysm repairs about 29 yo Family History: Mother-CAD Social History: Denies tobacco, alcohol or illicit drug use; Lives with his son Allergies: Ativan Home Medications: As per MAR Present on Admission - Present on Admission Any Indicators Present on Admission: No Review of Systems - Review of Systems Review of Systems: As per HPI, otherwise negative Past Patient History - Infectious Disease Hx of Infectious Diseases: None - Tetanus Immunizations Tetanus Immunization: Unknown - Past Social History Smoking Status: Never Smoked - CARDIAC Hx Cardiac Disorders: Yes Hx Hypertension: Yes - PULMONARY Hx Respiratory Disorders: No - NEUROLOGICAL Hx Alzheimer's Disease: Yes (Lwey Body Disease) Hx Dementia: Yes Hx Parkinson's Disease: Yes - HEMATOLOGICAL/ONCOLOGICAL Hx Blood Transfusions: No Hx Blood Transfusion Reaction: No - INTEGUMENTARY Other/Comment: age spots b/l arms, abrasions and dry skin both knees, thick hard toenails both feet, dry skin bottom b/l feet, skin discoloration ble, slight redness both feet, butrtock redness to sacrum/ butt crack - MUSCULOSKELETAL/RHEUMATOLOGICAL Hx Unsteady Gait: Yes - GASTROINTESTINAL Hx Gastroesophageal Reflux: Yes - GENITOURINARY/GYNECOLOGICAL Hx Prostate Problems: Yes (BPH, 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) - PSYCHIATRIC Hx Depression: No Hx Emotional Abuse: No Hx Physical Abuse: No Hx Substance Use: No - SURGICAL HISTORY Hx Cardiac Catheterization: Yes (01/23 stent placement) Hx Cholecystectomy: Yes Hx Coronary Stent: Yes - ANESTHESIA Hx Anesthesia Reactions: No Hx Malignant Hyperthermia: No Meds Allergies/Adverse Reactions: Allergies Allergy/AdvReac Type Severity Reaction Status Date / Time lorazepam AdvReac FATIGUE Verified 05/09/17 13:16 Physical Exam - Constitutional Appears: Non-toxic, No Acute Distress, Confused - Head Exam Head Exam: ATRAUMATIC, NORMOCEPHALIC - Eye Exam Eye Exam: EOMI, PERRL Pupil Exam: NORMAL ACCOMODATION - ENT Exam ENT Exam: Mucous Membranes Moist - Neck Exam Neck exam: Positive for: Full Rom. Negative for: Lymphadenopathy, Tenderness - Respiratory Exam Respiratory Exam: Clear to Auscultation Bilateral, NORMAL BREATHING PATTERN. absent: Accessory Muscle Use, Decreased Breath Sounds, Rales, Rhonchi, Wheezes, Respiratory Distress - Cardiovascular Exam Cardiovascular Exam: REGULAR RHYTHM, RRR, +S1, +S2. absent: Bradycardia, Tachycardia - GI/Abdominal Exam GI & Abdominal Exam: Normal Bowel Sounds, Soft. absent: Tenderness - Extremities Exam Extremities exam: Positive for: normal capillary refill, pedal pulses present. Negative for: calf tenderness, joint swelling, normal inspection, pedal edema, tenderness Additional comments: Erythema and warmth to right MCP's; Yellow scaly plaques to b/l soles of feet; left ORIF surgical incision scar present and without signs of clinical infection - Neurological Exam Neurological exam: CN II-XII Intact - Skin Skin Exam: Dry, Intact, Warm Results - Vital Signs Recent Vital Signs: Last Vital Signs Temp 99.1 F 05/09/17 12:38 Pulse 81 05/09/17 12:38 Resp 19 05/09/17 12:38 BP 155/84 H 05/09/17 12:38 Pulse Ox 100 05/09/17 12:38 - Labs Result Diagrams: 05/09/17 13:10 05/09/17 13:10 Assessment & Plan - Assessment and Plan (Free Text) Assessment: 86 year old male with a past medical history significant for left hip fracture s /p ORIF (03/2017), prior brain aneurysm repairs, CAD s/p bypass, HLD, Lewy body dementia, Alzheimer's, and Parkinson's who presents with increased weakness and confusion since being discharged from [facility]. CT Head, Hip/Pelvis X-Ray, and Chest X-Ray are all without acute findings. Left Ankle X-Ray showed sever degenerative changes. Plan: 1. Weakness/AMS in setting of Dementia -CT Head without acute intracranial abnormalities -Noted to be afebrile and without leukocytosis, tachycardia or tachypnea -UA pending -Continue home Seroquel -Soft and finely chopped heart healthy diet -High fall risk protocols -PT/OT evaluation pending 2. Right Hand Cellulitis -Right Hand X-Ray pending -One dose of IV Teflaro given -ID consulted, all recommendations appreciated 3. History of CAD -Continue home Amiodarone, high dose ASA, and Lopressor 4. History of HTN -Continue home Lisinopril 5. Fungal Skin Infection of Feet -Lotrimin 1% ointment 6. History of HLD -Continue home Lipitor GI Prophylaxis: Protonix DVT Prophylaxis: Heparin and SCD's Patient seen and case discussed with attending, Dr. Domingo. - Date & Time Date: 05/09/17 Time: 18:53 <Dayron Domingo - Last Filed: 05/10/17 09:46> History of Present Illness - History of Present Illness History of Present Illness: CC: falls at home, confusion Results - Vital Signs Recent Vital Signs: Last Vital Signs Temp 98.9 F 05/10/17 06:00 Pulse 64 05/10/17 06:00 Resp 20 05/10/17 06:00 BP 161/74 H 05/10/17 06:00 Pulse Ox 99 05/10/17 06:00 - Labs Result Diagrams: 05/10/17 06:20 05/10/17 06:20 Labs: Laboratory Results - last 24 hr 05/10/17 05/10/17 05/10/17 06:20 06:20 06:20 WBC 9.4 RBC 4.39 Hgb 12.4 L Hct 36.6 L MCV 83.4 MCH 28.2 MCHC 33.9 RDW 14.2 Plt Count 255 MPV 9.4 Gran % 79.9 H Lymph % (Auto) 13.4 L [place] % (Auto) 6.3 H Eos % (Auto) 0.3 L Baso % (Auto) 0.1 Gran # 7.51 H Lymph # (Auto) 1.3 [place] # (Auto) 0.6 Eos # (Auto) 0.0 Baso # (Auto) 0.01 APTT 28.5 Sodium 142 Potassium 4.3 Chloride 108 H Carbon Dioxide 21 Anion Gap 18 BUN 24 H Creatinine 1.3 Est GFR ( Amer) > 60 Est GFR (Non-Af Amer) 52 Random Glucose 135 H Calcium 9.8 Total Bilirubin 0.8 AST 33 ALT 28 Alkaline Phosphatase 118 Total Protein 7.3 Albumin 3.6 Globulin 3.7 Albumin/Globulin Ratio 1.0 L Assessment & Plan - Assessment and Plan (Free Text) Plan: falls at home confusion right hand cellulitis Attending/Attestation - Attestation I have personally seen and examined this patient.: Yes I have fully participated in the care of the patient.: Yes I have reviewed all pertinent clinical information: Yes Notes (Text): falls at home confusion right hand cellulitis
[2017-05-09] MEDS: Clotrimazole 1% Cream(30 gm) TOP SCH (19:59)
[2017-05-10] MEDS ORDERED: Pantoprazole 40 mg EC Tab PO SCH (06:00)
[2017-05-10 06:49] LABS: BASO # 0.01 K/mm3 (0.0-2.0); BASO % 0.1 % (0.0-3.0); EOS % 0.3 % (1.5-5.0); GRAN # 7.51 (1.4-6.5); GRAN % 79.9 % (50.0-68.0); HEMOGLOBIN 12.4 g/dL (14.0-18.0); LYMPH # 1.3 (1.2-3.4); LYMPH % 13.4 % (22.0-35.0); MEAN CELL VOLUME 83.4 fl (80.0-105.0); MEAN CORPUSCULAR HEMOGLOBIN 28.2 pg (25.0-35.0); MEAN CORPUSCULAR HGB CONC 33.9 g/dl (31.0-37.0); MEAN PLATELET VOLUME 9.4 fl (7.0-11.0); MONO # 0.6 (0.1-0.6); MONO % 6.3 % (1.0-6.0); RBC 4.39 10^6/uL (3.5-6.1); RED CELL DISTRIBUTION WIDTH 14.2 % (11.5-14.5); WHITE BLOOD COUNT 9.4 10^3/ul (4.5-11.0)
[2017-05-10 07:12] LABS: ALBUMIN 3.6 g/dL (3.0-4.8); ALT/SGPT 28 U/L (7-56); AST/SGOT 33 U/L (17-59); BLOOD UREA NITROGEN 24 mg/dL (7-21); CALCIUM 9.8 mg/dL (8.4-10.5); GFR AFRICAN-AMERICAN > 60; GFR NON-AFRICAN AMERICAN 52
--- NOTE | 2017-05-10 07:16 | RAD ---
PROCEDURE: Right Hand Radiographs. HISTORY: Right hand erythema COMPARISON: None. FINDINGS: BONES: No acute fracture or destructive bony lesion identified. JOINTS: Joint space narrowing and articular cortical sclerosis appreciate throughout the interphalangeal joints diffusely, appearing most appear at the distal interphalangeal joint of the ring finger. Similar changes are present at the 1st metacarpal phalangeal joint and the carpal metacarpal joints diffusely. SOFT TISSUES: Unremarkable. OTHER FINDINGS: None. IMPRESSION: No acute fracture, dislocation or destructive bony lesion. Degenerative joint disease is seen primarily at the interphalangeal joints as discussed above but also the carpometacarpal junctions. Unremarkable appearing soft tissues.
--- NOTE | 2017-05-10 08:18 | CON ---
DATE: 05/10/2017 ORTHOPEDIC REPORT HISTORY OF PRESENT ILLNESS: An 86-year-old male in room 563, bed 1. The patient came in to the emergency room last night with confusion and falling. Orthopedic past history is that he had bilateral hip fractures with the last one being on left side on 03/17/2017. He was doing well. He has peritrochanteric beverly in place and a similar device in the right hip done a couple of years ago. 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 Came in because when he fell, the family found him on the floor and he came to also for observation, reevaluation and medical care. He may need an extended care facility and he has no need for any surgery of the hips as they are doing very well and we will send him to physical therapy to regain more strength and hopefully does not fall again and follow him orthopedically to make that he does not injure his hips if he does fall again. 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 Jeremy Diaz DO
[2017-05-10] MEDS ORDERED: Sodium Chloride 0.9% 1,000 ML IV SCH ×2 (09:30→18:15)
[2017-05-10] MEDS: Clotrimazole 1% Cream(30 gm) TOP SCH ×2 (09:59→18:13)
[2017-05-10] MEDS ORDERED: Aspirin 325 mg EC Tablets PO SCH (10:00)
[2017-05-10 11:52] LABS: HEMOGLOBIN 11.8 g/dL (14.0-18.0); MEAN CELL VOLUME 83.3 fl (80.0-105.0); MEAN CORPUSCULAR HEMOGLOBIN 27.4 pg (25.0-35.0); MEAN PLATELET VOLUME 9.1 fl (7.0-11.0); RBC 4.3 10^6/uL (3.5-6.1); RED CELL DISTRIBUTION WIDTH 14.2 % (11.5-14.5); WHITE BLOOD COUNT 8.7 10^3/ul (4.5-11.0)
--- NOTE | 2017-05-10 12:52 | CP.PCM.CON ---
History of Present Illness - History of Present Illness History of Present Illness: 86 year old male with PMH of left hip fracture S/P ORIF in 2017, brain aneurysm S/P repair, CAD S/P CABG, dyslipidemia, dementia, Parkinson's disease was brought in to [facility] after he was found to be somewhat confused. There was a report from the subacute rehab that he may have had an unwitnessed fall while using his walker. There was no documentation of witnessed seizures, no diarrhea, no vomiting, no loss of consciousness from the rehab center. In the ED, there was note of swelling of the right hand with some abrasions noted. The patient denies fever or chills, no nausea or vomiting, no headache, no abdominal pain, no diarrhea, no dysuria, no chest pain, no SOB, no cough or rhinorrhea. Patient was given Teflaro yesterday and his hand now is less swollen. Infectious diseases consult is requested to further evaluate and manage. Review of Systems - Review of Systems All systems: reviewed and no additional remarkable complaints except (as per HPI ) Past Patient History - Infectious Disease Hx of Infectious Diseases: None - Tetanus Immunizations Tetanus Immunization: Unknown - Past Social History Smoking Status: Unknown If Ever Smoked - CARDIAC Hx Cardiac Disorders: Yes (mi) Hx Angina: Yes Hx Hypercholesterolemia: Yes Hx Hypertension: Yes Hx Peripheral Edema: Yes (ble +1) - PULMONARY Hx Respiratory Disorders: No - NEUROLOGICAL Hx Alzheimer's Disease: Yes (Lwey Body Disease) Hx Dementia: Yes Hx Parkinson's Disease: Yes Other/Comment: brain aneurysm x2 1985 - HEMATOLOGICAL/ONCOLOGICAL Hx Cancer: Yes (prostate tx with seeds) - INTEGUMENTARY Other/Comment: age spots b/l arms, abrasions and dry skin both knees, thick hard toenails both feet, dry skin bottom b/l feet, skin discoloration ble, slight redness both feet, butrtock redness to sacrum/ butt crack - MUSCULOSKELETAL/RHEUMATOLOGICAL Hx Arthritis: Yes Hx Falls: Yes (slipped off couch today) Hx Fractures: Yes (r hip) Hx Unsteady Gait: Yes - GASTROINTESTINAL Hx Gastroesophageal Reflux: Yes Other/Comment: perirectal abcess - GENITOURINARY/GYNECOLOGICAL Hx Prostate Problems: Yes (BPH, 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) Other/Comment: epistaxis - PSYCHIATRIC Hx Depression: No Hx Emotional Abuse: No Hx Physical Abuse: No - SURGICAL HISTORY Hx Cardiac Catheterization: Yes (01/23 stent placement) Hx Cholecystectomy: Yes Hx Coronary Stent: Yes Other/Comment: r hip repair with screw and beverly - ANESTHESIA Hx Anesthesia Reactions: No Hx Malignant Hyperthermia: No Meds Allergies/Adverse Reactions: Allergies Allergy/AdvReac Type Severity Reaction Status Date / Time lorazepam AdvReac FATIGUE Verified 05/09/17 13:16 - Medications Medications: Current Medications Amiodarone HCl (Cordarone) 200 mg PO DAILY [facility] Aspirin (Ecotrin) 325 mg PO DAILY [facility] Atorvastatin Calcium (Lipitor) 10 mg PO DAILY [facility] Clotrimazole (Lotrimin 1%) 1 gm TOP BID [facility] Last Admin: 05/09/17 19:59 Dose: Not Given Furosemide (Lasix) 10 mg PO DAILY [facility] Heparin Sodium (Porcine) (Heparin) 5,000 units SC Q12 [facility] PRN Reason: Protocol Last Admin: 05/09/17 21:14 Dose: Not Given Lisinopril (Zestril) 2.5 mg PO DAILY [facility] Metoprolol Tartrate (Lopressor) 25 mg PO DAILY [facility] Pantoprazole Sodium (Protonix Ec Tab) 40 mg PO 0600 [facility] Last Admin: 05/10/17 05:20 Dose: Not Given Quetiapine Fumarate (Seroquel) 75 mg PO DAILY [facility] PRN Reason: Protocol Physical Exam - Constitutional Appears: No Acute Distress, Chronically Ill - Head Exam Head Exam: NORMAL INSPECTION - ENT Exam ENT Exam: Mucous Membranes Moist - Neck Exam Neck exam: Negative for: Meningismus - Respiratory Exam Respiratory Exam: Decreased Breath Sounds - Cardiovascular Exam Cardiovascular Exam: +S1, +S2 - GI/Abdominal Exam GI & Abdominal Exam: Soft. absent: Tenderness - Extremities Exam Additional comments: right hand with much improved swelling and erythema Results - Vital Signs Recent Vital Signs: Last Vital Signs Temp 99.1 F 05/09/17 23:01 Pulse 81 05/09/17 23:01 Resp 18 05/09/17 23:01 BP 131/63 05/09/17 23:01 Pulse Ox 100 05/09/17 18:41 - Labs Result Diagrams: 05/10/17 11:40 05/10/17 06:20 Labs: Laboratory Results - last 24 hr 05/10/17 05/10/17 05/10/17 06:20 06:20 06:20 WBC 9.4 RBC 4.39 Hgb 12.4 L Hct 36.6 L MCV 83.4 MCH 28.2 MCHC 33.9 RDW 14.2 Plt Count 255 MPV 9.4 Gran % 79.9 H Lymph % (Auto) 13.4 L Atkinson % (Auto) 6.3 H Eos % (Auto) 0.3 L Baso % (Auto) 0.1 Gran # 7.51 H Lymph # (Auto) 1.3 Atkinson # (Auto) 0.6 Eos # (Auto) 0.0 Baso # (Auto) 0.01 APTT 28.5 Sodium 142 Potassium 4.3 Chloride 108 H Carbon Dioxide 21 Anion Gap 18 BUN 24 H Creatinine 1.3 Est GFR ( Amer) > 60 Est GFR (Non-Af Amer) 52 Random Glucose 135 H Calcium 9.8 Total Bilirubin 0.8 AST 33 ALT 28 Alkaline Phosphatase 118 Total Protein 7.3 Albumin 3.6 Globulin 3.7 Albumin/Globulin Ratio 1.0 L Assessment & Plan - Assessment and Plan (Free Text) Plan: Assessment Consider right hand cellulitis, non-purulent left hip fracture S/P ORIF in 2017 brain aneurysm S/P repair CAD S/P CABG dyslipidemia dementia Parkinson's disease Plan Patient was given a dose of Teflaro - will continue Cefazolin since it is non- purulent and monitor clinically follow up blood cx
--- NOTE | 2017-05-10 13:05 | CP.PCM.PN ---
<Gabriel Hernandez - Last Filed: 05/10/17 13:02> Subjective - Date & Time of Evaluation Date of Evaluation: 05/10/17 Time of Evaluation: 06:00 - Subjective Subjective: Patient seen and evaluated bedside. Patient has underlying dementia, but says he feels well. Patient had episode of coffee ground emesis around 7:30 am this morning. No other complaints at this time. Patient denies abdominal pain or nausea. Objective - Vital Signs/Intake and Output Vital Signs (last 24 hours): Temp Pulse Resp BP Pulse Ox 98.9 F 85 20 165/85 H 99 05/10/17 06:00 05/10/17 09:58 05/10/17 06:00 05/10/17 09:58 05/10/17 06:00 Intake and Output: 05/10/17 05/10/17 06:59 18:59 Intake Total 180 Output Total 3 Balance 177 - Medications Medications: Current Medications Amiodarone HCl (Cordarone) 200 mg PO DAILY [facility] Last Admin: 05/10/17 09:58 Dose: 200 mg Aspirin (Ecotrin) 325 mg PO DAILY [facility] Atorvastatin Calcium (Lipitor) 10 mg PO DAILY [facility] Last Admin: 05/10/17 09:57 Dose: 10 mg Clotrimazole (Lotrimin 1%) 1 gm TOP BID [facility] Last Admin: 05/10/17 09:59 Dose: 1 applic Furosemide (Lasix) 10 mg PO DAILY [facility] Last Admin: 05/10/17 09:58 Dose: 10 mg Heparin Sodium (Porcine) (Heparin) 5,000 units SC Q12 [facility] PRN Reason: Protocol Last Admin: 05/09/17 21:14 Dose: Not Given Sodium Chloride (Sodium Chloride 0.9%) 1,000 mls @ 40 mls/hr IV .Q24H [facility] Last Admin: 05/10/17 09:44 Dose: 40 mls/hr Cefazolin Sodium (Ancef 1gm In Ns) 1 gm in 100 mls @ 100 mls/hr IVPB Q8 [facility] PRN Reason: Protocol Lisinopril (Zestril) 2.5 mg PO DAILY [facility] Last Admin: 05/10/17 09:57 Dose: 2.5 mg Metoprolol Tartrate (Lopressor) 25 mg PO DAILY [facility] Last Admin: 05/10/17 09:58 Dose: 25 mg Pantoprazole Sodium (Protonix Inj) 40 mg IVP Q12 [facility] Quetiapine Fumarate (Seroquel) 75 mg PO DAILY [facility] PRN Reason: Protocol Last Admin: 05/10/17 09:57 Dose: 75 mg - Labs Labs: 05/10/17 11:40 05/10/17 06:20 PT 13.0 SECONDS (9.4-12.5) H 05/09/17 13:10 INR 1.13 (0.93-1.08) H 05/09/17 13:10 APTT 28.5 Seconds (25.1-36.5) 05/10/17 06:20 - Constitutional Appears: Non-toxic, No Acute Distress - Head Exam Head Exam: ATRAUMATIC, NORMAL INSPECTION, NORMOCEPHALIC - Eye Exam Eye Exam: Normal appearance - ENT Exam ENT Exam: Mucous Membranes Moist - Respiratory Exam Respiratory Exam: Clear to Ausculation Bilateral, NORMAL BREATHING PATTERN - Cardiovascular Exam Cardiovascular Exam: REGULAR RHYTHM - GI/Abdominal Exam GI & Abdominal Exam: Soft, Normal Bowel Sounds. absent: Tenderness - Extremities Exam Extremities Exam: absent: Tenderness - Neurological Exam Neurological Exam: Alert, Awake Neuro motor strength exam: Left Lower Extremity: 3, Right Lower Extremity: 4 - Skin Skin Exam: Normal Color, Warm Assessment and Plan - Assessment and Plan (Free Text) Assessment: 86 year old male with a past medical history significant for left hip fracture s /p ORIF (03/2017), prior brain aneurysm repairs, CAD s/p bypass, HLD, Lewy body dementia, Alzheimer's, and Parkinson's who presents with increased weakness and confusion since being discharged from [facility]. CT Head, Hip/Pelvis X-Ray, and Chest X-Ray are all without acute findings. Left Ankle X-Ray showed sever degenerative changes. Patient had episode of coffee ground emesis today. Plan: 1. Weakness/AMS in setting of Dementia -CT Head without acute intracranial abnormalities -Noted to be afebrile and without leukocytosis, tachycardia or tachypnea -UA pending will follow up -Continue home Seroquel -High fall risk protocols -PT/OT evaluation pending 2. Right Hand Cellulitis -much improved, erythema gone -Right Hand X-Ray no evidence of osteo -One dose of IV Teflaro given -ID consulted, all recommendations appreciated -started on cefazolin 3. Episode of Coffee ground emesis -diet held -GI consulted [facility] -Abd xray pending -repeat Hgb 11.8 from 12.4 this morning 4. History of CAD -Continue home Amiodarone, Lopressor -holding aspirin today 5. History of HTN -Continue home Lisinopril 6. Fungal Skin Infection of Feet -Lotrimin 1% ointment 7. History of HLD -Continue home Lipitor GI Prophylaxis: Protonix DVT Prophylaxis: SCD's <ChayoDayron - Last Filed: 05/10/17 14:59> Objective - Vital Signs/Intake and Output Vital Signs (last 24 hours): Temp Pulse Resp BP Pulse Ox 98.9 F 85 20 165/85 H 99 05/10/17 06:00 05/10/17 09:58 05/10/17 06:00 05/10/17 09:58 05/10/17 06:00 Intake and Output: 05/10/17 05/10/17 06:59 18:59 Intake Total 180 Output Total 3 Balance 177 - Medications Medications: Current Medications Amiodarone HCl (Cordarone) 200 mg PO DAILY [facility] Last Admin: 05/10/17 09:58 Dose: 200 mg Aspirin (Ecotrin) 325 mg PO DAILY [facility] Atorvastatin Calcium (Lipitor) 10 mg PO DAILY [facility] Last Admin: 05/10/17 09:57 Dose: 10 mg Clotrimazole (Lotrimin 1%) 1 gm TOP BID [facility] Last Admin: 05/10/17 09:59 Dose: 1 applic Furosemide (Lasix) 10 mg PO DAILY [facility] Last Admin: 05/10/17 09:58 Dose: 10 mg Heparin Sodium (Porcine) (Heparin) 5,000 units SC Q12 [facility] PRN Reason: Protocol Last Admin: 05/09/17 21:14 Dose: Not Given Sodium Chloride (Sodium Chloride 0.9%) 1,000 mls @ 40 mls/hr IV .Q24H [facility] Last Admin: 05/10/17 09:44 Dose: 40 mls/hr Cefazolin Sodium (Ancef 1gm In Ns) 1 gm in 100 mls @ 100 mls/hr IVPB Q8 [facility] PRN Reason: Protocol Last Admin: 05/10/17 13:42 Dose: 100 mls/hr Lisinopril (Zestril) 2.5 mg PO DAILY [facility] Last Admin: 05/10/17 09:57 Dose: 2.5 mg Metoprolol Tartrate (Lopressor) 25 mg PO DAILY [facility] Last Admin: 05/10/17 09:58 Dose: 25 mg Pantoprazole Sodium (Protonix Inj) 40 mg IVP Q12 [facility] Quetiapine Fumarate (Seroquel) 75 mg PO DAILY [facility] PRN Reason: Protocol Last Admin: 05/10/17 09:57 Dose: 75 mg - Labs Labs: 05/10/17 11:40 05/10/17 06:20 PT 13.0 SECONDS (9.4-12.5) H 05/09/17 13:10 INR 1.13 (0.93-1.08) H 05/09/17 13:10 APTT 28.5 Seconds (25.1-36.5) 05/10/17 06:20 Attending/Attestation - Attestation I have personally seen and examined this patient.: Yes I have fully participated in the care of the patient.: Yes I have reviewed all pertinent clinical information, including history, physical exam and plan: Yes Notes (Text): 1. Weakness/AMS in setting of Dementia 2. Right Hand Cellulitis 3. Episode of Coffee ground emesis
[2017-05-10] MEDS: ceFAZolin 1 gm in NS 1 GM/100 ML BAG IVPB SCH ×2 (13:42→21:27)
[2017-05-10 17:07] LABS: PH,URINE 5.5 (4.7-8.0); URINE BILIRUBIN NEGATIVE (NEGATIVE); URINE BLOOD NEGATIVE (NEGATIVE); URINE GLUCOSE (UA) NEGATIVE (NEGATIVE); URINE LEUKOCYTE ESTERASE NEGATIVE Leu/uL (NEGATIVE); URINE NITRATE NEGATIVE (NEGATIVE); URINE PROTEIN NEGATIVE mg/dL (<30 mg/dL); URINE UROBILINOGEN 0.2 E.U./dL (<1 E.U./dL)
[2017-05-10 17:08] LABS: URINE APPEARANCE CLEAR (CLEAR); URINE COLOR YELLOW (YELLOW)
[2017-05-10] MEDS ORDERED: Sodium Chloride 0.9% 500 ML IV SCH (17:15)
--- NOTE | 2017-05-10 17:15 | CP.PCM.CON ---
<Miriam Rodríguez - Last Filed: 05/10/17 17:15> History of Present Illness - History of Present Illness History of Present Illness: Seen and examined at the bedside earlier today, chart reviewed. Request for GI consult is for coffee ground vomitus. HPI: This is a 86-year-old male with a past medical history of coronary artery disease status post bypass, brain aneurysm status post repair, Matthew body dementia, Alzheimer's and Parkinson's disease initially came to the hospital with complaints of increasing weakness and confusion since being discharged from subacute rehabilitation. The patient is a poor historian, history was obtained from patient's medical chart, medical team and nursing staff. The patient had an unwitnessed fall at home, patient lives with his son. The patient recently had an ORIF of the left hip fracture and was in rehabilitation. The patient had multiple x-rays, hand x-ray was negative for fracture, head CT no hemorrhage or infarct, hip x-ray was also negative. The patient was reported to be complaining of epigastric burning last night and this morning was reported to have projectile vomiting that was coffee ground in color. The patient is currently sitting in a Laney chair asleep but arousable. He currently denies any nausea, no further vomiting or complaints of abdominal pain. The patient is poor and answering questions at this time, a bit drowsy but arousable. The patient was reported to be awake last night and this morning and even completed physical therapy. patient was reported to have bowel movement and it was brown in color. Past medical history: Is coronary artery disease status post bypass, early body dementia, Alzheimer's disease, Parkinson's disease, hyperlipidemia, recent hip fracture status post ORIF Past surgical history: As previously stated left hip fracture status post ORIF, right hip repair, bypass, brain aneurysm repair Family history: Mother with coronary artery disease Allergies: Ativan Social history: No history of tobacco, EtOH or illicit drugs Medications: Reviewed as per MAR ROS: Unable to review with patient at this time,patient poor and answering questions, did deny nausea and abdominal pain see HPI Past Patient History - Infectious Disease Hx of Infectious Diseases: None - Tetanus Immunizations Tetanus Immunization: Unknown - Past Social History Smoking Status: Unknown If Ever Smoked - CARDIAC Hx Cardiac Disorders: Yes (mi) Hx Angina: Yes Hx Hypercholesterolemia: Yes Hx Hypertension: Yes Hx Peripheral Edema: Yes (ble +1) - PULMONARY Hx Respiratory Disorders: No - NEUROLOGICAL Hx Alzheimer's Disease: Yes (Lwey Body Disease) Hx Dementia: Yes Hx Parkinson's Disease: Yes Other/Comment: brain aneurysm x2 1985 - HEMATOLOGICAL/ONCOLOGICAL Hx Cancer: Yes (prostate tx with seeds) - INTEGUMENTARY Other/Comment: age spots b/l arms, abrasions and dry skin both knees, thick hard toenails both feet, dry skin bottom b/l feet, skin discoloration ble, slight redness both feet, butrtock redness to sacrum/ butt crack - MUSCULOSKELETAL/RHEUMATOLOGICAL Hx Arthritis: Yes Hx Falls: Yes (slipped off couch today) Hx Fractures: Yes (r hip) Hx Unsteady Gait: Yes - GASTROINTESTINAL Hx Gastroesophageal Reflux: Yes Other/Comment: perirectal abcess - GENITOURINARY/GYNECOLOGICAL Hx Prostate Problems: Yes (BPH, 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) Other/Comment: epistaxis - PSYCHIATRIC Hx Depression: No Hx Emotional Abuse: No Hx Physical Abuse: No - SURGICAL HISTORY Hx Cardiac Catheterization: Yes (01/23 stent placement) Hx Cholecystectomy: Yes Hx Coronary Stent: Yes Other/Comment: r hip repair with screw and beverly - ANESTHESIA Hx Anesthesia Reactions: No Hx Malignant Hyperthermia: No Meds Allergies/Adverse Reactions: Allergies Allergy/AdvReac Type Severity Reaction Status Date / Time lorazepam AdvReac FATIGUE Verified 05/09/17 13:16 - Medications Medications: Current Medications Amiodarone HCl (Cordarone) 200 mg PO DAILY [facility] Last Admin: 05/10/17 09:58 Dose: 200 mg Aspirin (Ecotrin) 325 mg PO DAILY [facility] Atorvastatin Calcium (Lipitor) 10 mg PO DAILY [facility] Last Admin: 05/10/17 09:57 Dose: 10 mg Clotrimazole (Lotrimin 1%) 1 gm TOP BID COUNT [facility] Last Admin: 05/10/17 09:59 Dose: 1 applic Furosemide (Lasix) 10 mg PO DAILY [facility] Last Admin: 05/10/17 09:58 Dose: 10 mg Heparin Sodium (Porcine) (Heparin) 5,000 units SC Q12 [facility] PRN Reason: Protocol Last Admin: 05/09/17 21:14 Dose: Not Given Sodium Chloride (Sodium Chloride 0.9%) 1,000 mls @ 40 mls/hr IV .Q24H [facility] Last Admin: 02/27/18 09:44 Dose: 40 mls/hr Cefazolin Sodium (Ancef 1gm In Ns) 1 gm in 100 mls @ 100 mls/hr IVPB Q8 [facility] PRN Reason: Protocol Last Admin: 05/10/17 13:42 Dose: 100 mls/hr Lisinopril (Zestril) 2.5 mg PO DAILY [facility] Last Admin: 05/10/17 09:57 Dose: 2.5 mg Metoprolol Tartrate (Lopressor) 25 mg PO DAILY [facility] Last Admin: 05/10/17 09:58 Dose: 25 mg Pantoprazole Sodium (Protonix Inj) 40 mg IVP Q12 [facility] Quetiapine Fumarate (Seroquel) 75 mg PO DAILY [facility] PRN Reason: Protocol Last Admin: 05/10/17 09:57 Dose: 75 mg Physical Exam - Constitutional Appears: No Acute Distress - Head Exam Head Exam: NORMOCEPHALIC - Eye Exam Eye Exam: Normal appearance. absent: Scleral icterus - ENT Exam ENT Exam: Mucous Membranes Moist - Neck Exam Neck exam: Positive for: Normal Inspection - Respiratory Exam Respiratory Exam: NORMAL BREATHING PATTERN. absent: Respiratory Distress - Cardiovascular Exam Cardiovascular Exam: +S1, +S2 - GI/Abdominal Exam GI & Abdominal Exam: Normal Bowel Sounds, Soft. absent: Guarding, Rebound, Tenderness - Extremities Exam Extremities exam: Positive for: pedal pulses present. Negative for: calf tenderness, pedal edema - Neurological Exam Neurological exam: Altered (drowsy but arousable, confused) - Skin Skin Exam: Dry, Warm Results - Vital Signs Recent Vital Signs: Last Vital Signs Temp 98.9 F 05/10/17 06:00 Pulse 85 05/10/17 09:58 Resp 20 05/10/17 06:00 BP 165/85 H 05/10/17 09:58 Pulse Ox 99 05/10/17 06:00 - Labs Result Diagrams: 05/10/17 11:40 05/10/17 06:20 Labs: Laboratory Results - last 24 hr 05/10/17 05/10/17 05/10/17 06:20 06:20 06:20 WBC 9.4 RBC 4.39 Hgb 12.4 L Hct 36.6 L MCV 83.4 MCH 28.2 MCHC 33.9 RDW 14.2 Plt Count 255 MPV 9.4 Gran % 79.9 H Lymph % (Auto) 13.4 L [place] % (Auto) 6.3 H Eos % (Auto) 0.3 L Baso % (Auto) 0.1 Gran # 7.51 H Lymph # (Auto) 1.3 [place] # (Auto) 0.6 Eos # (Auto) 0.0 Baso # (Auto) 0.01 APTT 28.5 Sodium 142 Potassium 4.3 Chloride 108 H Carbon Dioxide 21 Anion Gap 18 BUN 24 H Creatinine 1.3 Est GFR ( Amer) > 60 Est GFR (Non-Af Amer) 52 Random Glucose 135 H Calcium 9.8 Total Bilirubin 0.8 AST 33 ALT 28 Alkaline Phosphatase 118 Total Protein 7.3 Albumin 3.6 Globulin 3.7 Albumin/Globulin Ratio 1.0 L 05/10/17 11:40 WBC 8.7 RBC 4.30 Hgb 11.8 L Hct 35.8 L MCV 83.3 MCH 27.4 MCHC 33.0 RDW 14.2 Plt Count 230 MPV 9.1 Gran % Lymph % (Auto) [place] % (Auto) Eos % (Auto) Baso % (Auto) Gran # Lymph # (Auto) [place] # (Auto) Eos # (Auto) Baso # (Auto) APTT Sodium Potassium Chloride Carbon Dioxide Anion Gap BUN Creatinine Est GFR ( Amer) Est GFR (Non-Af Amer) Random Glucose Calcium Total Bilirubin AST ALT Alkaline Phosphatase Total Protein Albumin Globulin Albumin/Globulin Ratio Assessment & Plan - Assessment and Plan (Free Text) Assessment: Assessment: Episode of coffee ground emesis, differentials to consider is peptic ulcer disease or angiodysplasia rule out bowel obstruction Status post fall Recent left hip fracture status post ORIF Coronary artery disease status post bypass Alzheimer's disease Parkinson's disease Plan: Continue PPI Aspirin and heparin on hold Request for abdominal flat plate Monitor H&H, monitor for GI bleed Currently nothing by mouth, consider clear liquids if abdominal x-ray negative and no further episodes of hematemesis. continue with episodes of vomitus, consider endoscopy. Thank you for this consult and for allowing us to participate in your patient's care, further recommendations based upon clinical course. Seen and discussed with Dr. Mustafa. <Amber Mustafa V - Last Filed: 05/11/17 01:14> Meds - Medications Medications: Current Medications Amiodarone HCl (Cordarone) 200 mg PO DAILY [facility] Last Admin: 05/10/17 09:58 Dose: 200 mg Aspirin (Ecotrin) 325 mg PO DAILY [facility] Atorvastatin Calcium (Lipitor) 10 mg PO DAILY [facility] Last Admin: 05/10/17 09:57 Dose: 10 mg Clotrimazole (Lotrimin 1%) 1 gm TOP BID COUNT [facility] Last Admin: 05/10/17 18:13 Dose: Not Given Furosemide (Lasix) 10 mg PO DAILY [facility] Last Admin: 05/10/17 09:58 Dose: 10 mg Heparin Sodium (Porcine) (Heparin) 5,000 units SC Q12 COUNT [facility] PRN Reason: Protocol Last Admin: 05/09/17 21:14 Dose: Not Given Cefazolin Sodium (Ancef 1gm In Ns) 1 gm in 100 mls @ 100 mls/hr IVPB Q8 COUNT [facility]CLUDES [facility] PRN Reason: Protocol Last Admin: 05/10/17 21:27 Dose: 100 mls/hr Sodium Chloride (Sodium Chloride 0.9%) 1,000 mls @ 75 mls/hr IV .[id number] COUNT [facility]CLUDES [facility] Last Admin: 05/10/17 18:13 Dose: 75 mls/hr Lisinopril (Zestril) 2.5 mg PO DAILY COUNT [facility] Last Admin: 05/10/17 09:57 Dose: 2.5 mg Metoprolol Tartrate (Lopressor) 25 mg PO DAILY COUNT [facility] Pantoprazole Sodium (Protonix Inj) 40 mg IVP Q12 COUNT [facility]CLUD[facility] Last Admin: 05/10/17 21:28 Dose: 40 mg Quetiapine Fumarate (Seroquel) 75 mg PO DAILY COUNT [facility] PRN Reason: Protocol Last Admin: 05/10/17 09:57 Dose: 75 mg Results - Vital Signs Recent Vital Signs: Last Vital Signs Temp 98.9 F 05/10/17 06:00 Pulse 85 05/10/17 09:58 Resp 20 05/10/17 06:00 BP 89/49 L 05/10/17 18:34 Pulse Ox 99 05/10/17 06:00 - Labs Result Diagrams: 05/10/17 11:40 05/10/17 06:20 Labs: Laboratory Results - last 24 hr 05/10/17 05/10/17 05/10/17 06:20 06:20 06:20 WBC 9.4 RBC 4.39 Hgb 12.4 L Hct 36.6 L MCV 83.4 MCH 28.2 MCHC 33.9 RDW 14.2 Plt Count 255 MPV 9.4 Gran % 79.9 H Lymph % (Auto) 13.4 L [place] % (Auto) 6.3 H Eos % (Auto) 0.3 L Baso % (Auto) 0.1 Gran # 7.51 H Lymph # (Auto) 1.3 [place] # (Auto) 0.6 Eos # (Auto) 0.0 Baso # (Auto) 0.01 APTT 28.5 Sodium 142 Potassium 4.3 Chloride 108 H Carbon Dioxide 21 Anion Gap 18 BUN 24 H Creatinine 1.3 Est GFR ( Amer) > 60 Est GFR (Non-Af Amer) 52 POC Glucose (mg/dL) Random Glucose 135 H Calcium 9.8 Total Bilirubin 0.8 AST 33 ALT 28 Alkaline Phosphatase 118 Total Protein 7.3 Albumin 3.6 Globulin 3.7 Albumin/Globulin Ratio 1.0 L Urine Color Urine Appearance Urine pH Ur Specific [place] Urine Protein Urine Glucose (UA) Urine Ketones Urine Blood Urine Nitrate Urine Bilirubin Urine Urobilinogen Ur Leukocyte Esterase 05/10/17 05/10/17 05/10/17 11:40 16:30 17:20 WBC 8.7 RBC 4.30 Hgb 11.8 L Hct 35.8 L MCV 83.3 MCH 27.4 MCHC 33.0 RDW 14.2 Plt Count 230 MPV 9.1 Gran % Lymph % (Auto) [place] % (Auto) Eos % (Auto) Baso % (Auto) Gran # Lymph # (Auto) [place] # (Auto) Eos # (Auto) Baso # (Auto) APTT Sodium Potassium Chloride Carbon Dioxide Anion Gap BUN Creatinine Est GFR ( Amer) Est GFR (Non-Af Amer) POC Glucose (mg/dL) 90 Random Glucose Calcium Total Bilirubin AST ALT Alkaline Phosphatase Total Protein Albumin Globulin Albumin/Globulin Ratio Urine Color Yellow Urine Appearance Clear Urine pH 5.5 Ur Specific [place] >= 1.030 Urine Protein Negative Urine Glucose (UA) Negative Urine Ketones 15 H Urine Blood Negative Urine Nitrate Negative Urine Bilirubin Negative Urine Urobilinogen 0.2 Ur Leukocyte Esterase Negative Attending/Attestation - Attestation I have personally seen and examined this patient.: Yes I have fully participated in the care of the patient.: Yes I have reviewed all pertinent clinical information: Yes Notes (Text): This is an addendum to GI consult report dictated by Miriam Rodríguez APN.The patient was seen and examined earlier. Medical records, lab studies, imagings were reviewed. Last 24 hours events reviewed. Agreed with the above treatment plan as outlined in Miriam Rodríguez APN's notes the with the addition of the following no further episodes of vomiting on examination abdomen soft no tenderness start clear liquid diet would request CT of the abdomen and pelvis with by mouth contrast Followup the hemoglobin and hematocrit Would consider upper GI endoscopy after reviewing the above workup and based on clinical course 05/11/17 01:11
[2017-05-11] MEDS: ceFAZolin 1 gm in NS 1 GM/100 ML BAG IVPB SCH (05:06)
[2017-05-11 07:08] LABS: BASO # 0.03 K/mm3 (0.0-2.0); BASO % 0.3 % (0.0-3.0); EOS # 0.6 (0.0-0.7); EOS % 7.1 % (1.5-5.0); GRAN # 5.83 (1.4-6.5); GRAN % 64.3 % (50.0-68.0); HEMOGLOBIN 10.8 g/dL (14.0-18.0); LYMPH # 1.8 (1.2-3.4); LYMPH % 19.8 % (22.0-35.0); MEAN CELL VOLUME 84.8 fl (80.0-105.0); MEAN CORPUSCULAR HEMOGLOBIN 27.4 pg (25.0-35.0); MEAN CORPUSCULAR HGB CONC 32.3 g/dl (31.0-37.0); MEAN PLATELET VOLUME 9.5 fl (7.0-11.0); MONO # 0.8 (0.1-0.6); MONO % 8.5 % (1.0-6.0); RBC 3.94 10^6/uL (3.5-6.1); RED CELL DISTRIBUTION WIDTH 14.5 % (11.5-14.5); WHITE BLOOD COUNT 9.1 10^3/ul (4.5-11.0)
--- NOTE | 2017-05-11 08:31 | RAD ---
HISTORY: vomiting/coffee ground, r/o obstruction COMPARISON: No prior. FINDINGS: BOWEL: There is moderate amount of stool in the colon. No bowel dilatation or obstruction. BONES: Within normal limits for the patient's age. Status post open reduction and internal fixation of bilateral proximal femoral fractures. OTHER FINDINGS: Radiation seeds in the prostate. IMPRESSION: Nonspecific bowel gas pattern.
[2017-05-11] MEDS: Sodium Chloride 0.9% 1,000 ML IV SCH (08:41)
[2017-05-11 09:02] LABS: ALBUMIN 3.3 g/dL (3.0-4.8); ALT/SGPT 25 U/L (7-56); AST/SGOT 31 U/L (17-59); BLOOD UREA NITROGEN 23 mg/dL (7-21); CALCIUM 9.2 mg/dL (8.4-10.5); GFR AFRICAN-AMERICAN > 60; GFR NON-AFRICAN AMERICAN 57
[2017-05-11] MEDS ORDERED: Barium Sulfate Susp 2.1% w/v, 2.0% w/w 450 mL Bottle PO ONE (09:05)
[2017-05-11] MEDS: POLYETHYLENE GLYCOL 3350 17 GM/Dose PACKET PO SCH (09:40)
[2017-05-11] MEDS: Clotrimazole 1% Cream(30 gm) TOP SCH ×2 (09:41→17:30)
--- NOTE | 2017-05-11 12:33 | US ---
PROCEDURE: Ultrasound urinary bladder. HISTORY: Retention COMPARISON: May 11, 2017. Renal ultrasound. May 11, 2017. CT abdomen and pelvis TECHNIQUE: Standard protocol for this study/examination. FINDINGS: Urinary bladder volume 77.4. Indwelling Contreras catheter identified. Diffuse bladder wall thickening despite the presence of an indwelling catheter is poorly visualized. Nonetheless cystitis should be considered. IMPRESSION: Diffuse bladder wall thickening suggestive but not diagnostic of cystitis. No focal bladder abnormalities.
--- NOTE | 2017-05-11 12:33 | CT ---
PROCEDURE: CT Abdomen and Pelvis without intravenous contrast HISTORY: vomiting/coffee ground COMPARISON: 05/15/2013 TECHNIQUE: Without contrast. Contrast Dose: Radiation dose: Total exam DLP = 413 mGy-cm. This CT exam was performed using one or more of the following dose reduction techniques: Automated exposure control, adjustment of the mA and/or kV according to patient size, and/or use of iterative reconstruction technique. FINDINGS: LOWER THORAX: Unremarkable. LIVER: Unremarkable. No gross lesion or ductal dilatation. GALLBLADDER AND BILE DUCTS: Gallbladder removed PANCREAS: Unremarkable. No gross lesion or ductal dilatation. SPLEEN: Unremarkable. ADRENALS: Unremarkable. No mass. KIDNEYS AND URETERS: Unremarkable. No hydronephrosis. No solid mass. VASCULATURE: Unremarkable. No aortic aneurysm. BOWEL: Unremarkable. No obstruction. No gross mural thickening. APPENDIX: Unremarkable. Normal appendix. PERITONEUM: Unremarkable. No free fluid. No free air. LYMPH NODES: Unremarkable. No enlarged lymph nodes. BLADDER: Contreras catheter present. Mural thickening in the bladder. REPRODUCTIVE: Radiation seed implants in the prostate BONES: No acute fracture. OTHER FINDINGS: None. IMPRESSION: No acute intra-abdominal findings
--- NOTE | 2017-05-11 12:33 | US ---
PROCEDURE: Ultrasound of the Kidneys HISTORY: Retention COMPARISON: None available. TECHNIQUE: Sonogram of the kidneys. FINDINGS: RIGHT KIDNEY: Measures: 5 x 6.1 x 9.0 cm. Normal in size, contour and echogenicity. No stone, solid mass lesion or hydronephrosis visualized. LEFT KIDNEY: Measures: 1.4 x 9.7 x 5.7 cm. Normal in size, contour and echogenicity. No stone, solid mass lesion or hydronephrosis visualized. OTHER FINDINGS: None. IMPRESSION: Unremarkable renal sonogram.
--- NOTE | 2017-05-11 13:12 | CP.PCM.PN ---
<Gabriel Hernandez - Last Filed: 05/11/17 13:07> Subjective - Date & Time of Evaluation Date of Evaluation: 05/11/17 Time of Evaluation: 06:00 - Subjective Subjective: Patient seen and evaluated bedside. Patient had episodes of low blood pressure yesterday. Patient says he is well, he has underlying dementia. Full ROS unobtainable. No additional episodes of coffee ground emesis since yesterday. Objective - Vital Signs/Intake and Output Vital Signs (last 24 hours): Temp Pulse Resp BP Pulse Ox 98.9 F 85 20 89/49 L 99 05/10/17 06:00 05/10/17 09:58 05/10/17 06:00 05/10/17 18:34 05/10/17 06:00 Intake and Output: 05/11/17 05/11/17 06:59 18:59 Intake Total 0 Output Total 300 200 Balance -300 -200 - Medications Medications: Current Medications Amiodarone HCl (Cordarone) 200 mg PO DAILY [facility] Last Admin: 05/11/17 09:35 Dose: Not Given Aspirin (Ecotrin) 325 mg PO DAILY [facility] Atorvastatin Calcium (Lipitor) 10 mg PO DAILY [facility] Last Admin: 05/11/17 10:47 Dose: Not Given Clotrimazole (Lotrimin 1%) 1 gm TOP BID [facility] Last Admin: 05/11/17 09:41 Dose: Not Given Furosemide (Lasix) 10 mg PO DAILY [facility] Last Admin: 05/11/17 09:35 Dose: Not Given Heparin Sodium (Porcine) (Heparin) 5,000 units SC Q12 [facility] PRN Reason: Protocol Last Admin: 05/09/17 21:14 Dose: Not Given Cefazolin Sodium (Ancef 1gm In Ns) 1 gm in 100 mls @ 100 mls/hr IVPB Q8 [facility] PRN Reason: Protocol Last Admin: 05/11/17 05:06 Dose: 100 mls/hr Sodium Chloride (Sodium Chloride 0.9%) 1,000 mls @ 50 mls/hr IV .Q20H [facility] Last Admin: 05/11/17 08:41 Dose: Not Given Lisinopril (Zestril) 2.5 mg PO DAILY [facility] Last Admin: 05/11/17 09:36 Dose: Not Given Metoprolol Tartrate (Lopressor) 25 mg PO DAILY [facility] Last Admin: 05/11/17 09:35 Dose: Not Given Pantoprazole Sodium (Protonix Inj) 40 mg IVP Q12 [facility] Last Admin: 05/11/17 09:40 Dose: 40 mg Polyethylene Glycol (Miralax) 17 gm PO DAILY [facility] Last Admin: 05/11/17 09:40 Dose: 17 gm Quetiapine Fumarate (Seroquel) 25 mg PO [facility] PRN Reason: Protocol - Labs Labs: 05/11/17 06:20 05/11/17 08:45 PT 13.0 SECONDS (9.4-12.5) H 05/09/17 13:10 INR 1.13 (0.93-1.08) H 05/09/17 13:10 APTT 28.5 Seconds (25.1-36.5) 05/10/17 06:20 - Constitutional Appears: Non-toxic, No Acute Distress - Head Exam Head Exam: ATRAUMATIC, NORMAL INSPECTION, NORMOCEPHALIC - Eye Exam Eye Exam: Normal appearance - ENT Exam ENT Exam: Mucous Membranes Moist - Respiratory Exam Respiratory Exam: Clear to Ausculation Bilateral, NORMAL BREATHING PATTERN - Cardiovascular Exam Cardiovascular Exam: REGULAR RHYTHM - GI/Abdominal Exam GI & Abdominal Exam: Soft, Normal Bowel Sounds. absent: Tenderness - Extremities Exam Extremities Exam: absent: Pedal Edema - Neurological Exam Neurological Exam: Alert, Altered, Awake Assessment and Plan - Assessment and Plan (Free Text) Assessment: 86 year old male with a past medical history significant for left hip fracture s /p ORIF (03/2017), prior brain aneurysm repairs, CAD s/p bypass, HLD, Lewy body dementia, Alzheimer's, and Parkinson's who presents with increased weakness and confusion since being discharged from [facility]. CT Head, Hip/Pelvis X-Ray, and Chest X-Ray are all without acute findings. Left Ankle X-Ray showed sever degenerative changes. Patient had episode of coffee ground emesis on 05/10. Plan: 1. Weakness/AMS in setting of Dementia -CT Head without acute intracranial abnormalities -UA negative -Continue home Seroquel HS -High fall risk protocols -PT/OT evaluation pending 2. Right Hand Cellulitis-resolved -ID consulted, all recommendations appreciated -Ancef 3. Episode of Coffee ground emesis -liquid diet -GI consulted Moon, will do CT abdomen and follow up , and possible EGD if needed -Abd xray no obstruction or acute process -Hgb: 10.8, will continue to monitor 4. History of CAD -Continue home Amiodarone, Lopressor -holding aspirin today 5. History of HTN -currently hypotensive 109/58 -holding HTN medications -will check manual BP 6. Fungal Skin Infection of Feet -Lotrimin 1% ointment 7. History of HLD -Continue home Lipitor GI Prophylaxis: Protonix DVT Prophylaxis: SCD's <Abdulaziz Green B - Last Filed: 05/11/17 13:30> Objective - Vital Signs/Intake and Output Vital Signs (last 24 hours): Temp Pulse Resp BP Pulse Ox 98.9 F 85 20 89/49 L 99 05/10/17 06:00 05/10/17 09:58 05/10/17 06:00 05/10/17 18:34 05/10/17 06:00 Intake and Output: 05/11/17 05/11/17 06:59 18:59 Intake Total 0 Output Total 300 200 Balance -300 -200 - Medications Medications: Current Medications Amiodarone HCl (Cordarone) 200 mg PO DAILY [facility] Last Admin: 05/11/17 09:35 Dose: Not Given Aspirin (Ecotrin) 325 mg PO DAILY [facility] Atorvastatin Calcium (Lipitor) 10 mg PO DAILY [facility] Last Admin: 05/11/17 10:47 Dose: Not Given Clotrimazole (Lotrimin 1%) 1 gm TOP BID [facility] Last Admin: 05/11/17 09:41 Dose: Not Given Furosemide (Lasix) 10 mg PO DAILY [facility] Last Admin: 05/11/17 09:35 Dose: Not Given Heparin Sodium (Porcine) (Heparin) 5,000 units SC Q12 [facility] PRN Reason: Protocol Last Admin: 05/09/17 21:14 Dose: Not Given Cefazolin Sodium (Ancef 1gm In Ns) 1 gm in 100 mls @ 100 mls/hr IVPB Q8 [facility] PRN Reason: Protocol Last Admin: 05/11/17 05:06 Dose: 100 mls/hr Sodium Chloride (Sodium Chloride 0.9%) 1,000 mls @ 50 mls/hr IV .Q20H [facility] Last Admin: 05/11/17 08:41 Dose: Not Given Lisinopril (Zestril) 2.5 mg PO DAILY [facility] Last Admin: 05/11/17 09:36 Dose: Not Given Metoprolol Tartrate (Lopressor) 25 mg PO DAILY [facility] Last Admin: 05/11/17 09:35 Dose: Not Given Pantoprazole Sodium (Protonix Inj) 40 mg IVP Q12 [facility] Last Admin: 05/11/17 09:40 Dose: 40 mg Polyethylene Glycol (Miralax) 17 gm PO DAILY [facility] Last Admin: 05/11/17 09:40 Dose: 17 gm Quetiapine Fumarate (Seroquel) 25 mg PO HS [facility] PRN Reason: Protocol - Labs Labs: 05/11/17 06:20 05/11/17 08:45 PT 13.0 SECONDS (9.4-12.5) H 05/09/17 13:10 INR 1.13 (0.93-1.08) H 05/09/17 13:10 APTT 28.5 Seconds (25.1-36.5) 05/10/17 06:20 Attending/Attestation - Attestation I have personally seen and examined this patient.: Yes I have fully participated in the care of the patient.: Yes I have reviewed all pertinent clinical information, including history, physical exam and plan: Yes Notes (Text): I have seen and examined the patient at bedside. Agree with the above note with the following additions/ exceptions: Briefly this is 86 year old male with history of left hip fracture s/p ORIF (03/2017), prior brain aneurysm repair, CAD s/p bypass, dyslipidemia, Lewy body dementia, Alzheimer's, and Parkinson's who was brought for evaluation of increased generalized weakness and confusion since being discharged from [facility]. CT Head, Hip/Pelvis X-Ray, and Chest X-Ray are all without acute findings. Left Ankle X-Ray showed severe degenerative changes. Will decrease the dose of seroquel and change to hs. BP is at lower side. Will repeat BP and will do orthostatics. Continue to hold antihypertensives. Patient had episode of coffee ground emesis on 05/10. There was no more similar episodes. CT abdomen pending. GI on board. Hb stable. Right hand cellulitis resolved. Continue ancef. PT eval pending. Upon discharge patient will follow up with Dr Dupree. Dr Abdulaziz Green
[2017-05-11 13:22] LABS: IRON 34 ug/dL (45-180)
[2017-05-11 13:31] LABS: % IRON SATURATION 17 % (20-55); TOTAL IRON BINDING CAPACITY 203 ug/dL (261-462)
--- NOTE | 2017-05-11 15:59 | CP.PCM.PN ---
<Moon,Kovil V - Last Filed: 05/11/17 23:54> Objective - Vital Signs/Intake and Output Vital Signs (last 24 hours): Temp Pulse Resp BP Pulse Ox 98.4 F 71 18 120/59 L 99 05/11/17 18:51 05/11/17 18:51 05/11/17 18:51 05/11/17 18:51 05/11/17 18:51 Intake and Output: 05/11/17 05/12/17 18:59 06:59 Intake Total 500 Output Total 450 Balance 50 - Medications Medications: Current Medications Amiodarone HCl (Cordarone) 200 mg PO DAILY [facility] Last Admin: 05/11/17 09:35 Dose: Not Given Aspirin (Ecotrin) 325 mg PO DAILY [facility] Atorvastatin Calcium (Lipitor) 10 mg PO DAILY [facility] Last Admin: 05/11/17 10:47 Dose: Not Given Cephalexin Monohydrate (Keflex) 250 mg PO Q6 [facility] PRN Reason: Protocol Last Admin: 05/11/17 23:50 Dose: 250 mg Clotrimazole (Lotrimin 1%) 1 gm TOP BID [facility] Last Admin: 05/11/17 17:30 Dose: 1 applic Ferrous Sulfate (Feosol) 324 mg PO TID [facility] Last Admin: 05/11/17 18:49 Dose: Not Given Furosemide (Lasix) 10 mg PO DAILY [facility] Heparin Sodium (Porcine) (Heparin) 5,000 units SC Q12 [facility] PRN Reason: Protocol Last Admin: 05/09/17 21:14 Dose: Not Given Sodium Chloride (Sodium Chloride 0.9%) 1,000 mls @ 50 mls/hr IV .Q20H [facility] Last Admin: 05/11/17 08:41 Dose: Not Given Lisinopril (Zestril) 2.5 mg PO DAILY [facility] Metoprolol Tartrate (Lopressor) 25 mg PO DAILY [facility] Last Admin: 05/11/17 09:35 Dose: Not Given Pantoprazole Sodium (Protonix Inj) 40 mg IVP Q12 [facility] Last Admin: 05/11/17 22:53 Dose: 40 mg Polyethylene Glycol (Miralax) 17 gm PO DAILY [facility] Last Admin: 05/11/17 09:40 Dose: 17 gm Quetiapine Fumarate (Seroquel) 12.5 mg PO HS [facility] PRN Reason: Protocol Last Admin: 05/11/17 22:52 Dose: 12.5 mg - Labs Labs: 05/11/17 06:20 05/11/17 08:45 PT 13.0 SECONDS (9.4-12.5) H 05/09/17 13:10 INR 1.13 (0.93-1.08) H 05/09/17 13:10 APTT 28.5 Seconds (25.1-36.5) 05/10/17 06:20 Attending/Attestation - Attestation I have personally seen and examined this patient.: Yes I have fully participated in the care of the patient.: Yes I have reviewed all pertinent clinical information, including history, physical exam and plan: Yes Notes (Text): This is an addendum to GI progress report dictated by Miriam Rodríguez APN.The patient was seen and examined earlier. Medical records, lab studies, imagings were reviewed. Last 24 hours events reviewed. Agreed with the above treatment plan as outlined in Miriam Rodríguez APN's notes the with the addition of the following 05/11/17 23:55 <Miriam Rodríguez - Last Filed: 05/12/17 15:50> Subjective - Date & Time of Evaluation Date of Evaluation: 05/11/17 Time of Evaluation: 12:05 - Subjective Subjective: S&E at bedside, chart reviewed. No further reports of vomiting/coffee ground vomitus. Patient is a poor historian. No acute overnight events reported. Abdominal xray , no obstruction, have constipation. Ct scan A&P with oral done and was negative. No further reports of overt GI bleeding. Objective - Vital Signs/Intake and Output Vital Signs (last 24 hours): Temp Pulse Resp BP Pulse Ox 98.2 F 54 L 17 109/58 L 99 05/11/17 07:30 05/11/17 07:30 05/11/17 07:30 05/11/17 07:30 05/11/17 07:30 Intake and Output: 05/11/17 05/11/17 06:59 18:59 Intake Total 0 Output Total 300 200 Balance -300 -200 - Medications Medications: Current Medications Amiodarone HCl (Cordarone) 200 mg PO DAILY [facility] Last Admin: 05/11/17 09:35 Dose: Not Given Aspirin (Ecotrin) 325 mg PO DAILY [facility] Atorvastatin Calcium (Lipitor) 10 mg PO DAILY [facility] Last Admin: 05/11/17 10:47 Dose: Not Given Cephalexin Monohydrate (Keflex) 250 mg PO Q6 [facility] PRN Reason: Protocol Clotrimazole (Lotrimin 1%) 1 gm TOP BID [facility] Last Admin: 05/11/17 09:41 Dose: Not Given Furosemide (Lasix) 10 mg PO DAILY [facility] Last Admin: 05/11/17 09:35 Dose: Not Given Heparin Sodium (Porcine) (Heparin) 5,000 units SC Q12 [facility] PRN Reason: Protocol Last Admin: 05/09/17 21:14 Dose: Not Given Sodium Chloride (Sodium Chloride 0.9%) 1,000 mls @ 50 mls/hr IV .Q20H [facility] Last Admin: 05/11/17 08:41 Dose: Not Given Lisinopril (Zestril) 2.5 mg PO DAILY [facility] Last Admin: 05/11/17 09:36 Dose: Not Given Metoprolol Tartrate (Lopressor) 25 mg PO DAILY [facility] Last Admin: 05/11/17 09:35 Dose: Not Given Pantoprazole Sodium (Protonix Inj) 40 mg IVP Q12 [facility] Last Admin: 05/11/17 09:40 Dose: 40 mg Polyethylene Glycol (Miralax) 17 gm PO DAILY [facility] Last Admin: 05/11/17 09:40 Dose: 17 gm Quetiapine Fumarate (Seroquel) 25 mg PO HS [facility] PRN Reason: Protocol - Labs Labs: 05/11/17 06:20 05/11/17 08:45 PT 13.0 SECONDS (9.4-12.5) H 05/09/17 13:10 INR 1.13 (0.93-1.08) H 05/09/17 13:10 APTT 28.5 Seconds (25.1-36.5) 05/10/17 06:20 - Constitutional Appears: No Acute Distress, Confused (pleasant) - Eye Exam Eye Exam: Normal appearance. absent: Scleral icterus - ENT Exam ENT Exam: Mucous Membranes Moist - Neck Exam Neck Exam: Normal Inspection - Respiratory Exam Respiratory Exam: NORMAL BREATHING PATTERN. absent: Respiratory Distress - Cardiovascular Exam Cardiovascular Exam: +S1, +S2 - GI/Abdominal Exam GI & Abdominal Exam: Soft, Normal Bowel Sounds. absent: Guarding, Tenderness, Rebound - Extremities Exam Extremities Exam: absent: Calf Tenderness - Neurological Exam Neurological Exam: Alert, Altered, Awake - Skin Skin Exam: Dry, Warm Assessment and Plan - Assessment and Plan (Free Text) Assessment: Assessment: Episode of coffee ground emesis, differentials to consider is peptic ulcer disease or angiodysplasia rule out bowel obstruction Status post fall Anem Hypotension Recent left hip fracture status post ORIF Coronary artery disease status post bypass Alzheimer's disease Parkinson's disease Plan: Continue PPI Check reticulocyte count, iron studies, folate, ferritin and vitamin B12 Monitor H&H, monitor for GI bleed is as spoke to patient's Clarice Rasmussen at [phone] regarding patient's plan and current status, does not want any endoscopy to be done, at this time prefer conservative treatment, will continue to monitor H&H and advance diet as tolerated, can reconsider if patient has another episode of hematemesis or continued drop in blood count. Seen and discussed with Dr. Mustafa.
--- NOTE | 2017-05-11 17:20 | CP.PCM.PN ---
Subjective - Date & Time of Evaluation Date of Evaluation: 05/11/17 Time of Evaluation: 11:30 - Subjective Subjective: Right hand is not swollen anymore, no fevers. Objective - Vital Signs/Intake and Output Vital Signs (last 24 hours): Temp Pulse Resp BP Pulse Ox 98.9 F 85 20 89/49 L 99 05/10/17 06:00 05/10/17 09:58 05/10/17 06:00 05/10/17 18:34 05/10/17 06:00 Intake and Output: 05/11/17 05/11/17 06:59 18:59 Intake Total 0 Output Total 300 200 Balance -300 -200 - Medications Medications: Current Medications Amiodarone HCl (Cordarone) 200 mg PO DAILY [facility] Last Admin: 05/10/17 09:58 Dose: 200 mg Aspirin (Ecotrin) 325 mg PO DAILY [facility] Atorvastatin Calcium (Lipitor) 10 mg PO DAILY [facility] Last Admin: 05/10/17 09:57 Dose: 10 mg Clotrimazole (Lotrimin 1%) 1 gm TOP BID [facility] Last Admin: 05/10/17 18:13 Dose: Not Given Furosemide (Lasix) 10 mg PO DAILY [facility] Last Admin: 05/10/17 09:58 Dose: 10 mg Heparin Sodium (Porcine) (Heparin) 5,000 units SC Q12 [facility] PRN Reason: Protocol Last Admin: 05/09/17 21:14 Dose: Not Given Cefazolin Sodium (Ancef 1gm In Ns) 1 gm in 100 mls @ 100 mls/hr IVPB Q8 [facility] PRN Reason: Protocol Last Admin: 05/11/17 05:06 Dose: 100 mls/hr Sodium Chloride (Sodium Chloride 0.9%) 1,000 mls @ 50 mls/hr IV .Q20H [facility] Last Admin: 05/11/17 08:41 Dose: Not Given Lisinopril (Zestril) 2.5 mg PO DAILY [facility] Last Admin: 05/10/17 09:57 Dose: 2.5 mg Metoprolol Tartrate (Lopressor) 25 mg PO DAILY [facility] Pantoprazole Sodium (Protonix Inj) 40 mg IVP Q12 [facility] Last Admin: 05/10/17 21:28 Dose: 40 mg Polyethylene Glycol (Miralax) 17 gm PO DAILY [facility] Quetiapine Fumarate (Seroquel) 75 mg PO DAILY [facility] PRN Reason: Protocol Last Admin: 05/10/17 09:57 Dose: 75 mg - Labs Labs: 05/11/17 06:20 05/11/17 08:45 PT 13.0 SECONDS (9.4-12.5) H 05/09/17 13:10 INR 1.13 (0.93-1.08) H 05/09/17 13:10 APTT 28.5 Seconds (25.1-36.5) 05/10/17 06:20 - Constitutional Appears: Chronically Ill - Head Exam Head Exam: NORMAL INSPECTION - ENT Exam ENT Exam: Mucous Membranes Moist - Neck Exam Neck Exam: absent: Meningismus - Respiratory Exam Respiratory Exam: Decreased Breath Sounds - Cardiovascular Exam Cardiovascular Exam: +S1, +S2 - GI/Abdominal Exam GI & Abdominal Exam: Soft. absent: Tenderness Assessment and Plan - Assessment and Plan (Free Text) Plan: Assessment Consider right hand cellulitis, non-purulent left hip fracture S/P ORIF in 2017 brain aneurysm S/P repair CAD S/P CABG dyslipidemia dementia Parkinson's disease Plan Patient was given a dose of Teflaro - will continue Cefazolin day 2 since it is non-purulent and continue to monitor clinically follow up blood cx
[2017-05-11 18:04] LABS: FOLATE 15.5 ng/mL
[2017-05-12] MEDS: Sodium Chloride 0.9% 1,000 ML IV SCH (05:01)
[2017-05-12 07:14] LABS: BASO # 0.03 K/mm3 (0.0-2.0); BASO % 0.4 % (0.0-3.0); EOS # 0.8 (0.0-0.7); EOS % 10.5 % (1.5-5.0); GRAN # 3.76 (1.4-6.5); GRAN % 50.7 % (50.0-68.0); LYMPH # 2.1 (1.2-3.4); LYMPH % 28.6 % (22.0-35.0); MEAN CELL VOLUME 83.7 fl (80.0-105.0); MEAN CORPUSCULAR HGB CONC 33.4 g/dl (31.0-37.0); MEAN PLATELET VOLUME 9.2 fl (7.0-11.0); MONO # 0.7 (0.1-0.6); MONO % 9.8 % (1.0-6.0); RBC 3.93 10^6/uL (3.5-6.1); RED CELL DISTRIBUTION WIDTH 14.4 % (11.5-14.5); WHITE BLOOD COUNT 7.4 10^3/ul (4.5-11.0)
[2017-05-12 07:32] LABS: ALBUMIN 3.1 g/dL (3.0-4.8); ALT/SGPT 25 U/L (7-56); AST/SGOT 33 U/L (17-59); BLOOD UREA NITROGEN 19 mg/dL (7-21); CALCIUM 9.3 mg/dL (8.4-10.5); GFR AFRICAN-AMERICAN > 60; GFR NON-AFRICAN AMERICAN 57
[2017-05-12 07:41] VITALS: O2SAT 98
[2017-05-12] MEDS: POLYETHYLENE GLYCOL 3350 17 GM/Dose PACKET PO SCH (10:22)
[2017-05-12] MEDS: Clotrimazole 1% Cream(30 gm) TOP SCH (10:40)
--- NOTE | 2017-05-12 11:32 | CP.PCM.PN ---
Subjective - Date & Time of Evaluation Date of Evaluation: 05/12/17 Time of Evaluation: 10:35 - Subjective Subjective: No fevers, not in distress. Objective - Vital Signs/Intake and Output Vital Signs (last 24 hours): Temp Pulse Resp BP Pulse Ox 98.2 F 54 L 17 109/58 L 99 05/11/17 07:30 05/11/17 07:30 05/11/17 07:30 05/11/17 07:30 05/11/17 07:30 Intake and Output: 05/11/17 05/11/17 06:59 18:59 Intake Total 0 500 Output Total 300 450 Balance -300 50 - Medications Medications: Current Medications Amiodarone HCl (Cordarone) 200 mg PO DAILY [facility] Last Admin: 05/11/17 09:35 Dose: Not Given Aspirin (Ecotrin) 325 mg PO DAILY [facility] Atorvastatin Calcium (Lipitor) 10 mg PO DAILY [facility] Last Admin: 05/11/17 10:47 Dose: Not Given Cephalexin Monohydrate (Keflex) 250 mg PO Q6 [facility] PRN Reason: Protocol Clotrimazole (Lotrimin 1%) 1 gm TOP BID [facility] Last Admin: 05/11/17 09:41 Dose: Not Given Ferrous Sulfate (Feosol) 324 mg PO TID [facility] Furosemide (Lasix) 10 mg PO DAILY [facility] Heparin Sodium (Porcine) (Heparin) 5,000 units SC Q12 [facility] PRN Reason: Protocol Last Admin: 05/09/17 21:14 Dose: Not Given Sodium Chloride (Sodium Chloride 0.9%) 1,000 mls @ 50 mls/hr IV .Q20H [facility] Last Admin: 05/11/17 08:41 Dose: Not Given Lisinopril (Zestril) 2.5 mg PO DAILY [facility] Metoprolol Tartrate (Lopressor) 25 mg PO DAILY [facility] Last Admin: 05/11/17 09:35 Dose: Not Given Pantoprazole Sodium (Protonix Inj) 40 mg IVP Q12 [facility] Last Admin: 05/11/17 09:40 Dose: 40 mg Polyethylene Glycol (Miralax) 17 gm PO DAILY [facility] Last Admin: 05/11/17 09:40 Dose: 17 gm Quetiapine Fumarate (Seroquel) 12.5 mg PO HS [facility] PRN Reason: Protocol - Labs Labs: 05/11/17 06:20 05/11/17 08:45 PT 13.0 SECONDS (9.4-12.5) H 05/09/17 13:10 INR 1.13 (0.93-1.08) H 05/09/17 13:10 APTT 28.5 Seconds (25.1-36.5) 05/10/17 06:20 - Constitutional Appears: Chronically Ill - Head Exam Head Exam: NORMAL INSPECTION - Respiratory Exam Respiratory Exam: Decreased Breath Sounds - Cardiovascular Exam Cardiovascular Exam: +S1, +S2 - GI/Abdominal Exam GI & Abdominal Exam: Soft. absent: Tenderness Assessment and Plan - Assessment and Plan (Free Text) Plan: Assessment Consider right hand cellulitis, non-purulent left hip fracture S/P ORIF in 2017 brain aneurysm S/P repair CAD S/P CABG dyslipidemia dementia Parkinson's disease Plan Patient was given a dose of Teflaro - will continue Cefazolin day 3 since it is non-purulent - complete 7-10 days of therapy
--- NOTE | 2017-05-12 11:35 | CP.PCM.CON ---
History of Present Illness - History of Present Illness History of Present Illness: Palliative consult requested by Dr Watson Domingo Reason: Goals of care/Advance care planning 86 year a old male with history of who presented with weakness, confusion.He was s/p fall at home per family. Recently sent home form [facility] after rehab for left hip fracture. CT of head negative for acute finding. All other imaging negative for acute injury.During this admission patient had an episode of coffee ground emsis> CT of abdomen negative findings PMHx: CAD, s/p CABG, [place] body dementia, Parkinson disease, HTN, HLD, L hip fx s/p ORIF, brain aneurism s/p repair Social History: Non smoker, no alcohol or drug use Family History: Mother with CAD. Advance Care Planning: The patient does not have an Advanced Directive. Review of Systems:As per HPI, otherwise negative review Past Patient History - Infectious Disease Hx of Infectious Diseases: None - Tetanus Immunizations Tetanus Immunization: Unknown - Past Social History Smoking Status: Unknown If Ever Smoked - CARDIAC Hx Cardiac Disorders: Yes (mi) Hx Angina: Yes Hx Hypercholesterolemia: Yes Hx Hypertension: Yes Hx Peripheral Edema: Yes (ble +1) - PULMONARY Hx Respiratory Disorders: No - NEUROLOGICAL Hx Alzheimer's Disease: Yes ([place] Body Disease) Hx Dementia: Yes Hx Parkinson's Disease: Yes Other/Comment: brain aneurysm x2 1984 - HEMATOLOGICAL/ONCOLOGICAL Hx Cancer: Yes (prostate tx with seeds) - INTEGUMENTARY Other/Comment: age spots b/l arms, abrasions and dry skin both knees, thick hard toenails both feet, dry skin bottom b/l feet, skin discoloration ble, slight redness both feet, butrtock redness to sacrum/ butt crack - MUSCULOSKELETAL/RHEUMATOLOGICAL Hx Arthritis: Yes Hx Falls: Yes (slipped off couch today) Hx Fractures: Yes (r hip) Hx Unsteady Gait: Yes - GASTROINTESTINAL Hx Gastroesophageal Reflux: Yes Other/Comment: perirectal abcess - GENITOURINARY/GYNECOLOGICAL Hx Prostate Problems: Yes (BPH, 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) Other/Comment: epistaxis - PSYCHIATRIC Hx Depression: No Hx Emotional Abuse: No Hx Physical Abuse: No - SURGICAL HISTORY Hx Cardiac Catheterization: Yes (01/23 stent placement) Hx Cholecystectomy: Yes Hx Coronary Stent: Yes Other/Comment: r hip repair with screw and beverly - ANESTHESIA Hx Anesthesia Reactions: No Hx Malignant Hyperthermia: No Meds Home Medications: Home Medication List Medication Instructions Recorded Confirmed Type Cephalexin [Keflex] 250 mg PO Q6 5 Days cap 05/12/17 Rx Clotrimazole 1% Cream [Lotrimin 1%] 1 gm TOP BID tube 05/12/17 Rx Famotidine [Pepcid] 40 mg PO DAILY #30 tablet 05/12/17 Rx Ferrous Sulfate [Feosol] 324 mg PO TID ect 05/12/17 Rx QUEtiapine [Seroquel] 12.5 mg PO HS tab 05/12/17 Rx Allergies/Adverse Reactions: Allergies Allergy/AdvReac Type Severity Reaction Status Date / Time lorazepam AdvReac FATIGUE Verified 05/09/17 13:16 - Medications Medications: Current Medications Amiodarone HCl (Cordarone) 200 mg PO DAILY [facility] Last Admin: 05/12/17 10:21 Dose: 200 mg Aspirin (Ecotrin) 325 mg PO DAILY [facility] Atorvastatin Calcium (Lipitor) 10 mg PO DAILY [facility] Last Admin: 05/12/17 10:22 Dose: 10 mg Cephalexin Monohydrate (Keflex) 250 mg PO Q6 [facility] PRN Reason: Protocol Last Admin: 05/12/17 06:00 Dose: 250 mg Clotrimazole (Lotrimin 1%) 1 gm TOP BID [facility] Last Admin: 05/12/17 10:40 Dose: 1 applic Ferrous Sulfate (Feosol) 324 mg PO TID [facility] Last Admin: 05/12/17 10:21 Dose: 324 mg Furosemide (Lasix) 10 mg PO DAILY [facility] Last Admin: 05/12/17 10:22 Dose: 10 mg Heparin Sodium (Porcine) (Heparin) 5,000 units SC Q12 [facility] PRN Reason: Protocol Last Admin: 05/09/17 21:14 Dose: Not Given Sodium Chloride (Sodium Chloride 0.9%) 1,000 mls @ 50 mls/hr IV .Q20H [facility] Last Admin: 05/12/17 05:01 Dose: 50 mls/hr Lisinopril (Zestril) 2.5 mg PO DAILY [facility] Last Admin: 05/12/17 10:23 Dose: 2.5 mg Metoprolol Tartrate (Lopressor) 25 mg PO DAILY [facility] Last Admin: 05/12/17 10:22 Dose: 25 mg Pantoprazole Sodium (Protonix Inj) 40 mg IVP Q12 [facility] Last Admin: 05/12/17 10:23 Dose: 40 mg Polyethylene Glycol (Miralax) 17 gm PO DAILY [facility] Last Admin: 05/12/17 10:22 Dose: 17 gm Quetiapine Fumarate (Seroquel) 12.5 mg PO HS [facility] PRN Reason: Protocol Last Admin: 05/11/17 22:52 Dose: 12.5 mg Results - Vital Signs Recent Vital Signs: Last Vital Signs Temp 97.6 F 05/12/17 07:30 Pulse 61 05/12/17 07:30 Resp 18 05/12/17 07:30 BP 136/63 05/12/17 10:22 Pulse Ox 98 05/12/17 07:30 - Labs Result Diagrams: 05/12/17 06:30 05/12/17 06:30 Labs: Laboratory Results - last 24 hr 05/11/17 05/11/17 05/11/17 11:00 11:00 11:00 WBC RBC Hgb Hct MCV MCH MCHC RDW Plt Count MPV Gran % Lymph % (Auto) [place] % (Auto) Eos % (Auto) Baso % (Auto) Gran # Lymph # (Auto) [place] # (Auto) Eos # (Auto) Baso # (Auto) Retic Count 1.12 Sodium Potassium Chloride Carbon Dioxide Anion Gap BUN Creatinine Est GFR ( Amer) Est GFR (Non-Af Amer) Random Glucose Calcium Iron 34 L TIBC 203 L % Saturation 17 L Ferritin 264.0 Total Bilirubin AST ALT Alkaline Phosphatase Total Protein Albumin Globulin Albumin/Globulin Ratio Vitamin B12 647 Folate 15.5 05/12/17 05/12/17 06:30 06:30 WBC 7.4 RBC 3.93 Hgb 11.0 L Hct 32.9 L MCV 83.7 MCH 28.0 MCHC 33.4 RDW 14.4 Plt Count 245 MPV 9.2 Gran % 50.7 Lymph % (Auto) 28.6 [place] % (Auto) 9.8 H Eos % (Auto) 10.5 H Baso % (Auto) 0.4 Gran # 3.76 Lymph # (Auto) 2.1 [place] # (Auto) 0.7 H Eos # (Auto) 0.8 H Baso # (Auto) 0.03 Retic Count Sodium 143 Potassium 3.6 Chloride 109 H Carbon Dioxide 23 Anion Gap 14 BUN 19 Creatinine 1.2 Est GFR ( Amer) > 60 Est GFR (Non-Af Amer) 57 Random Glucose 76 Calcium 9.3 Iron TIBC % Saturation Ferritin Total Bilirubin 0.5 AST 33 ALT 25 Alkaline Phosphatase 95 Total Protein 6.4 Albumin 3.1 Globulin 3.3 Albumin/Globulin Ratio 1.0 L Vitamin B12 Folate Assessment & Plan - Assessment and Plan (Free Text) Assessment: 86 yeara old male with history of Lewy body dementia, Parkinson's disease, CAD, falls who was admitted with weakness, confusion, s/p fall and coffee ground emesis. All imaging studies negative for injury. GI s The patient is alert, confused, restless. I spoke with patent son Matthew regarding advance care planning. Son is planning on meeting with me later this afternoon to discuss goals of care and advance care planning Plan: Continue current medical treatment plan Goals of care and advance care planning
--- NOTE | 2017-05-12 12:41 | CP.PCM.DIS ---
<Gabriel Hernandez - Last Filed: 05/13/17 13:53> Provider - Provider Date of Admission: 05/09/17 16:00 Attending physician: Abdulaziz Green MD Consults: GI: Moon Palliative care: Tristian Time Spent in preparation of Discharge (in minutes): 70 Hospital Course - Lab Results Lab Results: Micro Results 05/11/17 10:00 Blood-Venous Blood Culture - Preliminary NO GROWTH AFTER 24 HOURS 05/11/17 09:30 Blood-Venous Blood Culture - Preliminary NO GROWTH AFTER 24 HOURS 05/10/17 16:30 Urine,Clean Catch Urine Culture - Final No Growth (<1,000 CFU/ML) Most Recent Lab Values WBC 7.4 10^3/ul (4.5-11.0) 05/12/17 06:30 RBC 3.93 10^6/uL (3.5-6.1) 05/12/17 06:30 Hgb 11.0 g/dL (14.0-18.0) L 05/12/17 06:30 Hct 32.9 % (42.0-52.0) L 05/12/17 06:30 MCV 83.7 fl (80.0-105.0) 05/12/17 06:30 MCH 28.0 pg (25.0-35.0) 05/12/17 06:30 MCHC 33.4 g/dl (31.0-37.0) 05/12/17 06:30 RDW 14.4 % (11.5-14.5) 05/12/17 06:30 Plt Count 245 10^3/uL (120.0-450.0) 05/12/17 06:30 MPV 9.2 fl (7.0-11.0) 05/12/17 06:30 Gran % 50.7 % (50.0-68.0) 05/12/17 06:30 Lymph % (Auto) 28.6 % (22.0-35.0) 05/12/17 06:30 Mclennan % (Auto) 9.8 % (1.0-6.0) H 05/12/17 06:30 Eos % (Auto) 10.5 % (1.5-5.0) H 05/12/17 06:30 Baso % (Auto) 0.4 % (0.0-3.0) 05/12/17 06:30 Gran # 3.76 (1.4-6.5) 05/12/17 06:30 Lymph # (Auto) 2.1 (1.2-3.4) 05/12/17 06:30 Mclennan # (Auto) 0.7 (0.1-0.6) H 05/12/17 06:30 Eos # (Auto) 0.8 (0.0-0.7) H 05/12/17 06:30 Baso # (Auto) 0.03 K/mm3 (0.0-2.0) 05/12/17 06:30 Retic Count 1.12 % (0.5-1.5) 05/11/17 11:00 PT 13.0 SECONDS (9.4-12.5) H 05/09/17 13:10 INR 1.13 (0.93-1.08) H 05/09/17 13:10 APTT 28.5 Seconds (25.1-36.5) 05/10/17 06:20 Sodium 143 mmol/L (132-148) 05/12/17 06:30 Potassium 3.6 mmol/L (3.6-5.0) 05/12/17 06:30 Chloride 109 mmol/L (98-107) H 05/12/17 06:30 Carbon Dioxide 23 mmol/L (21-33) 05/12/17 06:30 Anion Gap 14 (10-20) 05/12/17 06:30 BUN 19 mg/dL (7-21) 05/12/17 06:30 Creatinine 1.2 mg/dl (0.8-1.5) 05/12/17 06:30 Est GFR ( Amer) > 60 05/12/17 06:30 Est GFR (Non-Af Amer) 57 05/12/17 06:30 POC Glucose (mg/dL) 90 mg/dL (65-110) 05/10/17 17:20 Random Glucose 76 mg/dL (70-110) 05/12/17 06:30 Calcium 9.3 mg/dL (8.4-10.5) 05/12/17 06:30 Magnesium 1.9 mg/dL (1.7-2.2) 05/09/17 13:10 Iron 34 ug/dL (45-180) L 05/11/17 11:00 TIBC 203 ug/dL (261-462) L 05/11/17 11:00 % Saturation 17 % (20-55) L 05/11/17 11:00 Ferritin 264.0 ng/mL 05/11/17 11:00 Total Bilirubin 0.5 mg/dL (0.2-1.3) 05/12/17 06:30 AST 33 U/L (17-59) 05/12/17 06:30 ALT 25 U/L (7-56) 05/12/17 06:30 Alkaline Phosphatase 95 U/L (38-126) 05/12/17 06:30 Lactate Dehydrogenase 509 U/L (333-699) 05/09/17 13:10 Total Creatine Kinase 422 U/L (35-230) H 05/09/17 13:10 CK-MB (CK-2) 4.3 ng/mL (0.0-3.6) H 05/09/17 13:10 CK-MB (CK-2) % Cancelled 05/09/17 13:10 Troponin I 0.03 ng/mL D 05/09/17 13:10 Total Protein 6.4 g/dL (5.8-8.3) 05/12/17 06:30 Albumin 3.1 g/dL (3.0-4.8) 05/12/17 06:30 Globulin 3.3 gm/dL 05/12/17 06:30 Albumin/Globulin Ratio 1.0 (1.1-1.8) L 05/12/17 06:30 Vitamin B12 647 pg/mL (239-931) 05/11/17 11:00 Folate 15.5 ng/mL 05/11/17 11:00 Urine Color Yellow (YELLOW) 05/10/17 16:30 Urine Appearance Clear (CLEAR) 05/10/17 16:30 Urine pH 5.5 (4.7-8.0) 05/10/17 16:30 Ur Specific [place] >= 1.030 (1.005-1.035) 05/10/17 16:30 Urine Protein Negative mg/dL (<30 mg/dL) 05/10/17 16:30 Urine Glucose (UA) Negative mg/dL (NEGATIVE) 05/10/17 16:30 Urine Ketones 15 mg/dL (NEGATIVE) H 05/10/17 16:30 Urine Blood Negative (NEGATIVE) 05/10/17 16:30 Urine Nitrate Negative (NEGATIVE) 05/10/17 16:30 Urine Bilirubin Negative (NEGATIVE) 05/10/17 16:30 Urine Urobilinogen 0.2 E.U./dL (<1 E.U./dL) 05/10/17 16:30 Ur Leukocyte Esterase Negative Rosalind/uL (NEGATIVE) 05/10/17 16:30 - Hospital Course Hospital Course: 86 year old male with a past medical history significant for left hip fracture s /p ORIF (03/2017), prior brain aneurysm repairs, CAD s/p bypass, HLD, Lewy body dementia, Alzheimer's, and Parkinson's who presents with increased weakness and confusion since being discharged from [facility]. CT Head, Hip/Pelvis X-Ray, and Chest X-Ray are all without acute findings. Left Ankle X-Ray showed sever degenerative changes. Patient had episode of coffee ground emesis on 05/10. for AMS and weakness CT head was negative, UA was nagative, patients seroquel was continued and patient was noted to have baseline dementia. For the episode of coffee ground emesis, patients diet was held and then slowly advanced to full liquids. GI was consulted, abdominal xray was done showing no obstruction and CT abdomen was also negative. Patients family did not want an EGD performed. Patient had several episodes of hypotenesion which improved with fluids and holding BP medication. For his anemia his Hgb was monitored and he was started on iron as he was found to be iron deficient. Patients clinical status improved and patient was discharged to [facility]. Discharge Exam - Head Exam Head Exam: NORMAL INSPECTION - Eye Exam Eye Exam: EOMI, Normal appearance - Respiratory Exam Respiratory Exam: NORMAL BREATHING PATTERN - Cardiovascular Exam Cardiovascular Exam: REGULAR RHYTHM - GI/Abdominal Exam GI & Abdominal Exam: Normal Bowel Sounds - Neurological Exam Neurological exam: Alert Discharge Plan - Discharge Medications Prescriptions: Famotidine [Pepcid] 40 mg PO DAILY #30 tablet - Follow Up Plan Condition: STABLE Disposition: TRANSF TO SNF Instructions: Preventing Falls in the Older Adult, Altered Mental Status (DC), Preventing Falls, Flu Vaccine Additional Instructions: Patient being discharged to [facility]. <Abdulaziz Green - Last Filed: 05/13/17 17:11> Provider - Provider Date of Admission: 05/09/17 16:00 Attending physician: Abdulaziz Green MD Hospital Course - Lab Results Lab Results: Micro Results 05/11/17 10:00 Blood-Venous Blood Culture - Preliminary NO GROWTH AFTER 48 HOURS 05/11/17 09:30 Blood-Venous Blood Culture - Preliminary NO GROWTH AFTER 48 HOURS 05/10/17 16:30 Urine,Clean Catch Urine Culture - Final No Growth (<1,000 CFU/ML) Most Recent Lab Values WBC 7.4 10^3/ul (4.5-11.0) 05/12/17 06:30 RBC 3.93 10^6/uL (3.5-6.1) 05/12/17 06:30 Hgb 11.0 g/dL (14.0-18.0) L 05/12/17 06:30 Hct 32.9 % (42.0-52.0) L 05/12/17 06:30 MCV 83.7 fl (80.0-105.0) 05/12/17 06:30 MCH 28.0 pg (25.0-35.0) 05/12/17 06:30 MCHC 33.4 g/dl (31.0-37.0) 05/12/17 06:30 RDW 14.4 % (11.5-14.5) 05/12/17 06:30 Plt Count 245 10^3/uL (120.0-450.0) 05/12/17 06:30 MPV 9.2 fl (7.0-11.0) 05/12/17 06:30 Gran % 50.7 % (50.0-68.0) 05/12/17 06:30 Lymph % (Auto) 28.6 % (22.0-35.0) 05/12/17 06:30 Mclennan % (Auto) 9.8 % (1.0-6.0) H 05/12/17 06:30 Eos % (Auto) 10.5 % (1.5-5.0) H 05/12/17 06:30 Baso % (Auto) 0.4 % (0.0-3.0) 05/12/17 06:30 Gran # 3.76 (1.4-6.5) 05/12/17 06:30 Lymph # (Auto) 2.1 (1.2-3.4) 05/12/17 06:30 Mclennan # (Auto) 0.7 (0.1-0.6) H 05/12/17 06:30 Eos # (Auto) 0.8 (0.0-0.7) H 05/12/17 06:30 Baso # (Auto) 0.03 K/mm3 (0.0-2.0) 05/12/17 06:30 Retic Count 1.12 % (0.5-1.5) 05/11/17 11:00 PT 13.0 SECONDS (9.4-12.5) H 05/09/17 13:10 INR 1.13 (0.93-1.08) H 05/09/17 13:10 APTT 28.5 Seconds (25.1-36.5) 05/10/17 06:20 Sodium 143 mmol/L (132-148) 05/12/17 06:30 Potassium 3.6 mmol/L (3.6-5.0) 05/12/17 06:30 Chloride 109 mmol/L (98-107) H 05/12/17 06:30 Carbon Dioxide 23 mmol/L (21-33) 05/12/17 06:30 Anion Gap 14 (10-20) 05/12/17 06:30 BUN 19 mg/dL (7-21) 05/12/17 06:30 Creatinine 1.2 mg/dl (0.8-1.5) 05/12/17 06:30 Est GFR ( Amer) > 60 05/12/17 06:30 Est GFR (Non-Af Amer) 57 05/12/17 06:30 POC Glucose (mg/dL) 90 mg/dL (65-110) 05/10/17 17:20 Random Glucose 76 mg/dL (70-110) 05/12/17 06:30 Calcium 9.3 mg/dL (8.4-10.5) 05/12/17 06:30 Magnesium 1.9 mg/dL (1.7-2.2) 05/09/17 13:10 Iron 34 ug/dL (45-180) L 05/11/17 11:00 TIBC 203 ug/dL (261-462) L 05/11/17 11:00 % Saturation 17 % (20-55) L 05/11/17 11:00 Ferritin 264.0 ng/mL 05/11/17 11:00 Total Bilirubin 0.5 mg/dL (0.2-1.3) 05/12/17 06:30 AST 33 U/L (17-59) 05/12/17 06:30 ALT 25 U/L (7-56) 05/12/17 06:30 Alkaline Phosphatase 95 U/L (38-126) 05/12/17 06:30 Lactate Dehydrogenase 509 U/L (333-699) 05/09/17 13:10 Total Creatine Kinase 422 U/L (35-230) H 05/09/17 13:10 CK-MB (CK-2) 4.3 ng/mL (0.0-3.6) H 05/09/17 13:10 CK-MB (CK-2) % Cancelled 05/09/17 13:10 Troponin I 0.03 ng/mL D 05/09/17 13:10 Total Protein 6.4 g/dL (5.8-8.3) 05/12/17 06:30 Albumin 3.1 g/dL (3.0-4.8) 05/12/17 06:30 Globulin 3.3 gm/dL 05/12/17 06:30 Albumin/Globulin Ratio 1.0 (1.1-1.8) L 05/12/17 06:30 Vitamin B12 647 pg/mL (239-931) 05/11/17 11:00 Folate 15.5 ng/mL 05/11/17 11:00 Urine Color Yellow (YELLOW) 05/10/17 16:30 Urine Appearance Clear (CLEAR) 05/10/17 16:30 Urine pH 5.5 (4.7-8.0) 05/10/17 16:30 Ur Specific [place] >= 1.030 (1.005-1.035) 05/10/17 16:30 Urine Protein Negative mg/dL (<30 mg/dL) 05/10/17 16:30 Urine Glucose (UA) Negative mg/dL (NEGATIVE) 05/10/17 16:30 Urine Ketones 15 mg/dL (NEGATIVE) H 05/10/17 16:30 Urine Blood Negative (NEGATIVE) 05/10/17 16:30 Urine Nitrate Negative (NEGATIVE) 05/10/17 16:30 Urine Bilirubin Negative (NEGATIVE) 05/10/17 16:30 Urine Urobilinogen 0.2 E.U./dL (<1 E.U./dL) 05/10/17 16:30 Ur Leukocyte Esterase Negative Rosalind/uL (NEGATIVE) 05/10/17 16:30 Attending/Attestation - Attestation I have personally seen and examined this patient.: Yes I have fully participated in the care of the patient.: Yes I have reviewed all pertinent clinical information, including history, physical exam and plan: Yes Notes (Text): I have seen and examined the patient at bedside. Agree with the above note with the following additions/ exceptions: Briefly this is 86 year old male with history of left hip fracture s/p ORIF (03/2017), prior brain aneurysm repair, CAD s/p bypass, dyslipidemia, Lewy body dementia, Alzheimer's, and Parkinson's who was brought for evaluation of increased generalized weakness and confusion since being discharged from [facility]. CT Head, Hip/Pelvis X-Ray, and Chest X-Ray are all without acute findings. Left Ankle X-Ray showed severe degenerative changes. Continue low dose seroquel. Patient had episode of coffee ground emesis on 05/10. There was no more similar episodes. CT abdomen is normal. GI on board. Hb stable. Right hand cellulitis resolved. Continue ancef. PT eval recommended [facility]. Patient will be discharged to [facility]. Upon discharge patient will follow up with Dr Dupree. Dr Abdulaziz Green
[2017-05-12 14:14] VITALS: BP 120/68; PULSE 60; RESP 20; TEMP 98.3
--- NOTE | 2017-05-12 15:53 | CP.PCM.PN ---
Subjective - Date & Time of Evaluation Date of Evaluation: 05/12/17 Time of Evaluation: 10:20 - Subjective Subjective: seen and examined at the bedside earlier today, no further episodes of nausea, vomiting, hematemesis or abdominal pain reported. Patient tolerating oral intake. Patient remains pleasantly confused. Objective - Vital Signs/Intake and Output Vital Signs (last 24 hours): Temp Pulse Resp BP Pulse Ox 98.3 F 60 20 120/68 98 05/12/17 14:13 05/12/17 14:13 05/12/17 14:13 05/12/17 14:13 05/12/17 14:13 Intake and Output: 05/12/17 05/12/17 06:59 18:59 Intake Total 180 480 Balance 180 480 - Labs Labs: 05/12/17 06:30 05/12/17 06:30 PT 13.0 SECONDS (9.4-12.5) H 05/09/17 13:10 INR 1.13 (0.93-1.08) H 05/09/17 13:10 APTT 28.5 Seconds (25.1-36.5) 05/10/17 06:20 Assessment and Plan - Assessment and Plan (Free Text) Assessment: Assessment: S/P Episode of coffee ground emesis, differentials to consider is peptic ulcer disease or angiodysplasia rule out bowel obstruction Status post fall Anemia, Hbg stable S/P Hypotension Recent left hip fracture status post ORIF Coronary artery disease status post bypass Alzheimer's disease Parkinson's disease Plan: Continue PPI Monitor H&H, monitor for GI bleed from GI point of view patient can restart Aspirin, no further episode of hematemsis, hgb stable, recommend on discharge for patient to be on GI prophylaxsis of Pepcid , discuss w/ medical team. Family did not want egd, prefer conservative treatment. Seen and discussed with Dr. Mustafa.
== END 2017-05-12 14:44 | DRG 57 ==
LOC: ED 12:19 → ERH 16:00 → 5RNO 19:19
PROVIDERS: ADMIT Internal Medicine; ATTEND Hospitalist
DX: G31.83 Neurocognitive disorder with Lewy bodies (principal); D64.9 Anemia, unspecified; G30.9 Alzheimer's disease, unspecified; L03.113 Cellulitis of right upper limb; F02.80 Dementia in other diseases classified elsewhere, unspecified severity, without behavioral disturbance, psychotic disturbance, mood disturbance, and anxiety; E78.5 Hyperlipidemia, unspecified; E78.00 Pure hypercholesterolemia, unspecified; S70.01XA Contusion of right hip, initial encounter; I25.10 Atherosclerotic heart disease of native coronary artery without angina pectoris; N40.0 Benign prostatic hyperplasia without lower urinary tract symptoms; I10 Essential (primary) hypertension; K21.9 Gastro-esophageal reflux disease without esophagitis; M19.072 Primary osteoarthritis, left ankle and foot; S70.02XA Contusion of left hip, initial encounter; W19.XXXA Unspecified fall, initial encounter; Z91.81 History of falling; Y92.009 Unspecified place in unspecified non-institutional (private) residence as the place of occurrence of the external cause; Z85.46 Personal history of malignant neoplasm of prostate; Z95.1 Presence of aortocoronary bypass graft; Z95.5 Presence of coronary angioplasty implant and graft